=== PATIENT | female | born 1930 | race Caucasian/White ===

== ENCOUNTER 2018-12-21 09:30 | Inpatient (IN) | payer MEDICARE, MEDICAID ==
[~2018-12-21] VITALS: Ht 152.4 cm; Wt 65.0 kg
[2018-12-21 12:20] VITALS: BP 158/81
--- NOTE | 2018-12-21 13:31 | NUR ---
[place], who prefers to go by Inga admitted to room 224-1, with an admitting diagnosis of a sacral fx , on 12/21/18 from via [facility], accompanied by her son, Leonel who is her DPOA. Inga was introduced to surroundings, call light, bed controls, phone, TV, temperature control, lights, meal times, smoking policy, visitor policy, side rail policy, bathrooms and showers. Patient Rights given to patient in the handbook. Inga verbalizes understanding that [facility] is not responsible for the loss or damage to any personal effects or valuables that are kept in the patients posession during their hospitalization. The following Patient Care Plans were discussed with the Injury Prevention,Imparied Mobility and Discharge Planning. Inga verbalizes understanding of Interdisciplinary Patient Education. Patient and/or family were informed about the Rapid Response Team and its purpose. Patient received Patient Rights Booklet, which includes Privacy Act Statement and Data Collection Information Summary.
--- NOTE | 2018-12-21 13:40 | Physical Therapy Evaluation ---
PT Evaluation-General Medical Diagnosis Admission Date Dec 21, 2018 at 12:20 Medical Diagnosis: Sacral fx Onset Date: Dec 21, 2018 Therapy Diagnosis Therapy Diagnosis: weakness; abn gait Precautions Precautions/Isolations: Standard Precautions Weight Bear Status Right Lower Extremity: Right Weight Bearing/Tolerated Left Lower Extremity: Left Weight Bearing/Tolerated Referral Physician: Candi Reason for Referral: Evaluation/Treatment Medical History Additional Medical History R TKA, L THR, stage 3 kidney disease, asthma, osteoporosis, UTI Current History Pt presents post acute hospital stay post fall on 12/13/18. She sustained a sacral fx. Reviewed History: Yes Social History Home: Single Level Current Living Status: Alone (good family support) Entry Into Home: Stairs Without Railing (1 small step ) Prior/Core FIM Prior Level of Function Therapy Code Descriptions/Definitions Functional Gem Measure: 0=Not Assessed/NA 4=Minimal Assistance 1=Total Assistance 5=Supervision or Setup 2=Maximal Assistance 6=Modified Gem 3=Moderate Assistance 7=Complete Gem Therapy Quality Codes: 6 Independent with activity with or without an assistive device 5 Patient requires set up or clean up by helper. Patient completes activity by themselves 4 Supervision or touching assist (CGA). [place] provide cues , steadying assist 3 The helper provides less than half the effort to complete the activity 2 The helper provides more than half the effort to complete the activity 1 Dependent. The helper does all the effort to complete an activity 7 Patient refused to complete or attempt activity 9 The patient did not perform the activity before the current illness or injury 88 Not attempted due to Medical conditions or safety concerns Functional Abilities and Goals: Independent: Patient completed the activities by him/herself, with or without an assistive device, with no assistance from a helper. Needed Some Help: Patient needed partial assistance from another person to complete activities. Dependent: A helper completed the activities for the patient. Unknown: Not Applicable: Bed Mobility: 7 Transfers (B,C,W/C) (FIM): 7 Gait: 6 (FWW) Stairs: 2 (1 step) Indoor Mobility (Ambulation): Independent Stairs: Independent Prior Devices Use: Walker Pt is a community ambulator and still drives. Does her own grocery shopping. Able to care for herself. PT Evaluation-Current Subjective Pt grunts/groans noting left hip/sacral pain. Agrees to PT. but reports sitting up is painful. Pain Numeric Pain Scale: 9 Location: Left Location Body Site: Hip (sacral area) Pain Description: Dull, Pressure, Stabbing Objective Patient Orientation: Person, Place, Time, Situation Problem Solving: Fair ROM/Strength ROM Lower Extremities WNL Strenght Lower Extremities strength is grossly 4/5 throughout. Integumentary/Posture Integumentary Intact Bowel Incontinence: No Bladder Incontinence: Yes (stress) Posture normal and symmetrical Neuromuscular (Tone, Coordination, Reflexes) intact and functional Sensory Vision: Wears Glasses Hearing: Hearing Aid/Aides Hand Dominance: Right Sensation Right Lower Extremit: Intact Sensation Left Lower Extremity: Intact Transfers Therapy Code Descriptions/Definitions Functional Gem Measure: 0=Not Assessed/NA 4=Minimal Assistance 1=Total Assistance 5=Supervision or Setup 2=Maximal Assistance 6=Modified Gem 3=Moderate Assistance 7=Complete Gem Therapy Quality Codes: 6 Independent with activity with or without an assistive device 5 Patient requires set up or clean up by helper. Patient completes activity by themselves 4 Supervision or touching assist (CGA). [place] provide cues , steadying assist 3 The helper provides less than half the effort to complete the activity 2 The helper provides more than half the effort to complete the activity 1 Dependent. The helper does all the effort to complete an activity 7 Patient refused to complete or attempt activity 9 The patient did not perform the activity before the current illness or injury 88 Not attempted due to Medical conditions or safety concerns Transfers (B, C, W/C) (FIM): 3 Scootin Rollin Roll Left to Right (QC): 3 Supine to/from Sit: 3 (assist with both legs) Sit to/from Stand: 4 (min assist to come to [facility]. ) Sit to Lying (QC): 3 Lying to Sitting/Side of Bed(Q: 3 Sit to Stand (QC): 4 Chair/Jwd-ew-Nbdso Xfer(QC): 4 Car Transfer (QC): 3 Pt slow with transfers due to pain and requires cues to sequence. Gait Does the Patient Walk?: Yes Mode of Locomotion: Walk Anticipated Mode of Locomotion: Walk Gait (FIM): 2 Distance (FIM): 1=up to 49 ft Walk 10 feet (QC): 4 Walk 50 ft with 2 Turns(QC): 88 Walk 150 ft (QC): 88 Walking 10ft/uneven surface-QC: 88 Distance: 10 ft Gait Level of Assist: 4 (min assist) Gait Assistive Device: FWW Comments/Gait Description slow gait and slightly antalgic Wheelchair Training Does the Pt Use a Wheelchair?: No Stairs Stairs (FIM): 0 (unable to assess due to pain) 1 Step (curb) (QC): 88 4 Steps (QC): 88 12 Steps (QC): 88 Balance Sitting Static: Good Sitting Dynamic: Good Standing Static: Fair Standing Dynamic: Fair Picking up an Object (QC): 88 Treatment Pt walked x 15 ft x 2 with FWW with close CGA and skilled cues for sequencing. Toileted with min assit for toilet transfer. Worked on functional bed mobility and task segmentation with bed mobility. Assessment/Needs Pt presents post fall that resulted in a sacral fracture. She is limited by pain with movement and painful with pressure through her hip/thigh in sitting. She requires assist with all functional tranfers and gait and only walks short distances. She will benefit from skilled PT intervention to address mobility, strength, safety, balance to allow her to return home as before. Rehab Potential: Good PT Short Term Goals Short Term Goals Time Frame: Dec 28, 2018 Transfers (B,C,W/C) (FIM): 4 Gait (FIM): 4 PT Shelter Goals Shelter Goals PT Shelter Goals Time Frame: January 09, 2019 Transfers (B,C,W/C) (FIM): 6 Sit to Lying (QC): 6 Lying-Sitting on Side/Bed(QC): 6 Sit to Stand (QC): 6 Roll Left to Right (QC): 6 Chair/Rvw-ek-Djczr Xfer(QC): 6 Car Transfer (QC): 6 Does the Patient Walk: Yes Gait (FIM): 6 Gait distance (FIM): 3=150 ft Walk 10 feet (QC): 6 Walk 10ft-Uneven Surface(QC): 6 Walk 50ft with 2 Turns (QC): 6 Walk 150 ft (QC): 6 Gait Assistive Device: FWW Does the Pt use WC or Scooter?: No Stairs (FIM): 5 # of Steps: 4 1 Step (curb) (QC): 6 4 Steps (QC): 6 12 Steps (QC): 10 Picking up an Object (QC): 10 PT Plan Problem List Problem List: Activity Tolerance, Functional Strength, Safety, Balance, Gait, Transfer, Bed Mobility Treatment/Plan Treatment Plan: Continue Plan of Care Treatment Plan: Bed Mobility, Education, Functional Activity Melissa, Functional Strength, Group Therapy, Gait, Safety, Therapeutic Exercise, Transfers Treatment Duration: January 09, 2019 Frequency: At least 5 of 7 days/Wk (IRF) Estimated Hrs Per Day: 1.5 hours per day Patient and/or Family Agrees t: Yes Safety Risks/Education Patient Education: Gait Training, Transfer Techniques, Safety Issues Teaching Recipient: Patient Teaching Methods: Discussion Response to Teaching: Reinforcement Needed Discharge Recommendations Therapy D/C Recommendations: Physical Therapy Home Care Time/GCodes Time In: 1220 Time Out: 1330 Total Billed Treatment Time: 70 Total Billed Treatment visit EVM 30 FA 40 CECILIA CROWE PT Dec 21, 2018 13:40
[2018-12-21] MEDS ORDERED: ATEN100T PO ×2 (13:46)
[2018-12-21] MEDS ORDERED: ASPI-983 PO (13:46)
[2018-12-21] MEDS ORDERED: AMLO10TA7 PO (13:46)
[2018-12-21] MEDS ORDERED: FENO160T12 PO (13:46)
[2018-12-21] MEDS ORDERED: LISI-552 PO (13:46)
[2018-12-21] MEDS ORDERED: DOCU-143 PO (13:46)
[2018-12-21] MEDS ORDERED: TRAM50TA2 PO (13:46)
[2018-12-21] MEDS ORDERED: PREG75CA PO (13:46)
[2018-12-21] MEDS ORDERED: SPIR25TA5 PO (13:46)
[2018-12-21] MEDS ORDERED: PEDI18TA2 PO (13:46)
[2018-12-21] MEDS ORDERED: MONT10TA21 PO (13:46)
[2018-12-21] MEDS ORDERED: CALC-880 PO (13:46)
[2018-12-21] MEDS ORDERED: CHOL20002 PO (13:46)
[2018-12-21] MEDS ORDERED: KRIL1CAP29 PO (13:46)
--- NOTE | 2018-12-21 13:47 | NUR ---
UPDATED MED REC TO THE PATIENTS HOME MEDICATION LIST. FAMILY BROUGHT IN A DETAILED LIST THEY COPIED DOWN FROM HER BOTTLES. THE PATIENT LOOKED OVER IT AND AGREED IT WAS ACCURATE. THE ONLY ADDITION IS KRILL OIL DAILY. THE PATIENT STATES SHE HER MEDICATIONS FROM THE [facility]. IF SHE CAN'T GET THEM FILLED THERE SHE USES [facility] IN [place]. I HAD A LIST SENT OVER FROM THE [facility] FOR VERIFICATION. 12-10-18 VITAMIN D 2,000 UNITS DAILY #60 12-10-18 COLACE 100MG BID #60 12-10-18 SINGULAIR 10MG EVENING #60 12-10-18 SPIRONOLACTONE 25MG DAILY #60 11-29-18 LYRICA 75MG BID #60 11-22-18 LISINOPRIL 20MG BID #120 11-22-18 TRAMADOL 50MG TID PRN #90 10-30-18 AMLODIPINE 10MG DAILY #60 10-30-18 ATENOLOL 100MG 1 AM 1/2 HS #90 10-30-18 CALCIUM 500 + D 400IU BID #120 10-30-18 FENOFIBRATE 160MG DAILY #60 06-21-18 VOLTAREN GEL 2GM QID (WAS NOT ON HER LIST SHE BROUGHT IN) 03-26-18 ASPIRIN 81MG DAILY #60 (TAKES BID NOW AND MAY BUY OTC) SHE ALSO TAKES KRILL OIL AND FLINTSTONES VITAMINS OTC DAILY. THERE WAS NOT A FORMAL DISCHARGE MED LIST FROM [facility] BUT THE [facility] NURSE STATES THEY DID NOT MAKE ANY CHANGES TO THE PATIENTS MEDS.
--- NOTE | 2018-12-21 14:11 | PM&R H&P / Post Admit Assess ---
History of Present Illness HPI/Chief Complaint CC: Sacral fracture in need of IRF prior to going home to live alone HPI: This is an 88yoWF clinic patient of [facility] in [place], [place] who also sees Nephrology at [place] and Cardiology at [place] who presents to IRF due to sacral fracture in need of intensive rehab prior to returning home to live alone independently. Her PLOF was independent and family is involved in her care. She fell on 12/12/18 at home and did not feel like she hurt herself until she began having left leg and left pelvis pain 3 days later and reported to the ER which dx the sacral fracture and was given pain meds and sent home. Patient presented to Dr Kent's office yesterday and was assessed to not require surgery but due to pain and unable to go back home due to debility she was admitted for observation to [facility] and consulted IRF at [facility]. Currently she just took a shower and is feeling much better. Patient has not had a BM for 2 days. Patient does have bladder stress incontinence. I have reviewed her home meds and restarted all of them. 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 She had 2 sons, 1 is 6 yrs ago from a non-purposeful narcotic OD. She will return home at the completion of IRF. Source: patient, old records Exam Limitations: no limitations Date Seen 12/21/18 Time Seen by a Provider: 14:00 Attending Physician Celine Christopher DO PCP No,Local Physician Referring Physician Date of Admission Dec 21, 2018 at 12:20 Home Medications & Allergies Home Medications Reviewed patient Home Medication Reconciliation performed by pharmacy medication reconciliations implementation technician and/or nursing. Patients Allergies have been reviewed. 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) Alcohol Use: Denies Use Smoking Status: Never a Smoker Recent Foreign Travel: No Contact w/other who traveled: No Past Medical History Cardiac: High Cholesterol, Hypertension RLS Genitourinary: Renal Failure (RLS) Gastrointestinal: Chronic Constipation Musculoskeletal: Degenerate Disk Disease, Arthritis Family History Hypertension Review of Systems Constitutional: see HPI EENTM: no symptoms reported Respiratory: no symptoms reported Cardiovascular: no symptoms reported Gastrointestinal: constipation Genitourinary: no symptoms reported Musculoskeletal: back pain, other (left pelvis sacrum pain) Skin: no symptoms reported Psychiatric/Neurological: No Symptoms Reported All Other Systems Reviewed Negative Unless Noted: Yes Physical Exam Exam Vital Signs Vital Signs Date Time Temp Pulse Resp B/P (MAP) Pulse Ox O2 Delivery O2 Flow Rate FiO2 12/21/18 15:57 Room Air Capillary Refill : General Appearance: No Apparent Distress, WD/WN, Chronically ill, Obese HEENT: PERRL/EOMI, Normal ENT Inspection, Pharynx Normal, Moist Mucous Membranes Neck: Full Range of Motion, Normal Inspection, Non Tender, Supple Respiratory: Chest Non Tender, Lungs Clear, Normal Breath Sounds, No Accessory Muscle Use, No Respiratory Distress Cardiovascular: Regular Rate, Rhythm, No Edema, No Gallop, No JVD, No Murmur Gastrointestinal: Normal Bowel Sounds, No Organomegaly, No Pulsatile Mass, Non Tender, Soft Back: Normal Inspection, No CVA Tenderness, Decreased Range of Motion Extremity: Normal Capillary Refill, Normal Inspection, Normal Range of Motion, Non Tender, No Calf Tenderness, No Pedal Edema Neurologic/Psychiatric: Alert, Oriented x3, No Motor/Sensory Deficits, Normal Mood/Affect, Motor Weakness (weakness 4/5 all extremities) Skin: Normal Color, Warm/Dry Lymphatic: No Adenopathy Results Results/Procedures Labs Patient resulted labs reviewed. Assessment/Plan Assessment and Plan Assess & Plan/Chief Complaint Assessment/Plan: (1) Sacral fracture, closed- no surgical repair option (2) Debility- needs IRF to return to [facility] of independent (3) Hypertension- home meds and monitor closely (4) Hyperlipidemia- home meds (5) Renal insufficiency- monitor creatinine closely and check labs am (6) Anemia- monitor hgb (7) RLS (restless legs syndrome)- home meds (8) Fall-PT/OT to educate on safety and fall risk (9) Allergic rhinitis- on Singulair (10) Constipation- start meds (11) Sacral pain- add Ultram and Hydrocodone monitor for delirium (1) Sacral fracture, closed (2) Debility (3) Hypertension (4) Hyperlipidemia (5) Renal insufficiency (6) Anemia (7) RLS (restless legs syndrome) (8) Fall (9) Allergic rhinitis (10) Constipation (11) Sacral pain Post Admission Physician Asses Date seen by provider: Dec 21, 2018 Time seen by provider: 14:00 Admisison Dx: (1) Sacral fracture, closed (2) Anemia (3) Hyperlipidemia (4) Renal insufficiency (5) Allergic rhinitis (6) Debility (7) Hypertension (8) Fall (9) RLS (restless legs syndrome) (10) Constipation (11) Sacral pain The preadmission screen agrees with the post admission assessment that the patient is a good candidate for inpatient rehabilitation. The patient will have a comprehensive program of inpatient rehabilitation with a goal of maximizing level of functional independence prior to discharge home alone. The patient will have PT/OT ninety minutes per day, each discipline, five days a week for gait, strengthening, conditioning, balance, ADLs, any patient/family/caregiver training as necessary. Speech therapy to do cognitive assessment and treat as indicated. Rehabilitation nursing to assist with bowel, bladder, skin, wound care, medication administration, pain management. [employer] Head to assist with discharge planning, community reentry. SCD's for DVT prophylaxis. She appears to be well motivated to participate in three hours of therapy a day. She should be able to tolerate three hours of therapy a day from a medical standpoint. She should benefit from the three hours of therapy a day. She has a reasonable discharge plan, reasonable discharge rehabilitation goals and a supportive family. She has various comorbidities that need to be closely monitored with medications and treatments adjusted on a daily basis as needed. These include: see above list Barriers to discharge for this patient who had been independent prior to this are for her to be modified independent to supervision for ADLs and mobility skills prior to discharge home with [family], so as to lessen the burden of the caregivers. Risks for this patient include: 1. Fall 2. Fracture 3. DVT 4. Pulmonary embolism 5. Wound infection 6. Skin breakdown 7. Contractures 8. Poorly controlled pain 9. Urinary retention 10. UTI 11. Respiratory infection 12. Aspiration Estimated Length of Stay: 10 days Prognosis: Rehab prognosis appears good for goal of discharge home modified independent to supervision for ADLs and mobility skills. CELINE CHRISTOPHER DO Dec 21, 2018 14:11
--- NOTE | 2018-12-21 15:21 | Physical Therapy Daily Note ---
PT Daily Note-Current Subjective Pt sitting in recliner visiting with Dr Christopher upon arrival. Pt agrees to PT/ OT co-treat. Pain Numeric Pain Scale: 8 Location: Left Location Body Site: Hip Pain Description: Ache Mental Status Patient Orientation: Person, Place, Situation Transfers Therapy Code Descriptions/Definitions Functional [place] Measure: 0=Not Assessed/NA 4=Minimal Assistance 1=Total Assistance 5=Supervision or Setup 2=Maximal Assistance 6=Modified [place] 3=Moderate Assistance 7=Complete [place] Therapy Quality Codes: 6 Independent with activity with or without an assistive device 5 Patient requires set up or clean up by helper. Patient completes activity by themselves 4 Supervision or touching assist (CGA). [place] provide cues , steadying assist 3 The helper provides less than half the effort to complete the activity 2 The helper provides more than half the effort to complete the activity 1 Dependent. The helper does all the effort to complete an activity 7 Patient refused to complete or attempt activity 9 The patient did not perform the activity before the current illness or injury 88 Not attempted due to Medical conditions or safety concerns Scootin Supine to/from Sit: 3 Sit to/from Stand: 4 Sit to Lying (QC): 3 Sit to Stand (QC): 4 Weight Bearing Right Lower Extremity: Right Weight Bearing/Tolerated Left Lower Extremity: Left Weight Bearing/Tolerated Gait Training Distance (FIM): 1=up to 49 ft Distance: 15' Gait Assistive Device: FWW Pt groans in pain while ambulating. Pt has slow catherine but steady. Exercises Supine Ex: Ankle pumps, Quad Set, Glut sets Supine Reps: 10 Treatments STRETCHING PRESS OPERATOR tries to assist pt with repositioning in lift chair. Pt brushes hair in chair to finish ADLs. Due to pt being uncomfortable, PT & OT assisted with transfer from chair to standing. Pt ambulates to farside of EOB. Pt transfers to Supine in bed with staff assistance. Pt completes alternating UE/LE Ex. Pt rests at end of tx with all needs met. Co-treat completed due to need of two skilled clinicians. Assessment Pt is limited by pain at this time. PT Short Term Goals Short Term Goals Time Frame: Dec 28, 2018 Transfers (B,C,W/C) (FIM): 4 Gait (FIM): 4 PT Fiction And Nonfiction Author Goals Fiction And Nonfiction Author Goals PT Fiction And Nonfiction Author Goals Time Frame: January 09, 2019 Transfers (B,C,W/C) (FIM): 6 Sit to Lying (QC): 6 Lying-Sitting on Side/Bed(QC): 6 Sit to Stand (QC): 6 Rollin Roll Left to Right (QC): 6 Chair/Yan-bv-Vtxfy Xfer(QC): 6 Car Transfer (QC): 6 Does the Patient Walk: Yes Gait (FIM): 6 Gait distance (FIM): 3=150 ft Walk 10 feet (QC): 6 Walk 10ft-Uneven Surface(QC): 6 Walk 50ft with 2 Turns (QC): 6 Walk 150 ft (QC): 6 Gait Assistive Device: FWW Does the Pt use WC or Scooter?: No Stairs (FIM): 5 # of Steps: 4 1 Step (curb) (QC): 6 4 Steps (QC): 6 12 Steps (QC): 10 Picking up an Object (QC): 10 PT Plan Problem List Problem List: Activity Tolerance, Functional Strength, Safety, Balance, Gait, Transfer, Bed Mobility Treatment/Plan Treatment Plan: Continue Plan of Care Treatment Plan: Bed Mobility, Education, Functional Activity Melissa, Functional Strength, Group Therapy, Gait, Safety, Therapeutic Exercise, Transfers Treatment Duration: January 09, 2019 Frequency: At least 5 of 7 days/Wk (IRF) Estimated Hrs Per Day: 1.5 hours per day Patient and/or Family Agrees t: Yes Safety Risks/Education Patient Education: Gait Training, Transfer Techniques, Correct Positioning, Safety Issues Teaching Recipient: Patient Teaching Methods: Discussion Response to Teaching: Verbalize Understanding Time/GCodes Time In: 1440 Time Out: 1500 Total Billed Treatment Time: 20 Total Billed Treatment 1, EX (20m) PT worked on transfers, gait & LE strengthening while OT worked on ADLs, hand placement & UE strengthening GABRIEL PANIAGUA STRETCHING PRESS OPERATOR Dec 21, 2018 15:21
--- NOTE | 2018-12-21 15:54 | ST Cognitive Linguistic Eval ---
Speech Evaluation-General Medical Diagnosis Sacral fx Onset Date: Dec 21, 2018 Therapy Diagnosis Therapy Diagnosis: Cognitive-communication Precautions Precautions/Isolations: Fall Prevention, Standard Precautions Referral Referring Physician: Dr. Christopher Reason for Referral: Evaluation/Treatment Medical History Reviewed History: Yes Social History Current Living Status: Alone (good family support) Speech PLF-Current Status Prior Level of Function Prior to this hospitalization the patient lived at home in [place], [place] alone. She has family close by for assistance when needed. Subjective The patient was pleasant and cooperative with the evaluation process. Language Eval: Auditory Comprehends Simple Yes/No Ques: Functional Indent/Objects [place]: Functional Ident/Pics in [place]: Functional Follows 1-Step Commands: Functional Follows Complex Directions: Functional Follows General Conversations: Functional Language Eval: Verbal Language Completes Spontaneous Greeting: Functional Produces Auto, Serial Info: Functional Imitates Simple Words/Phrases: Functional Word Finding: Functional Requests Basic Needs: Functional States Basic Personal Info: Functional Expresses Complex Ideas: Functional Objective Cognitive Domain Attention: WNL Memory: WNL Problem Solving: Functional Executive Functions: WNL Visuospatial Skills: WNL Composite Severity Rating: WNL Clock Drawing Severity Rating: WNL Objective Formal/Standardized Tests Jono Cognitive Assessment (MOCA) Results Visuospatial/Executive: 4/5, Namin/3, Memory: Immediate 5/5, Delayed with cues 4/5, Attention: 6/6, Language 3/3, Abstraction:2/2, Orientation: 6/6 Oral Motor/Speech Production Within Functional Limits Impression The patient is a pleasant 88 year old female who was admitted to the ARU due to a sacral fracture. She plans on returning home post rehab. She was given the MOCA with results no areas of concern at this time. Communication/Social Cognition Comprehension: 7 Expression: 7 Social Interaction: 7 Problem Solvin Memory: 6 Speech Patient Assess Expression of Ideas/Wants: Expression (4) Understanding Verbal Content: Understands (4) Brief Interview-Mental Status: Yes Repetition of Three Words: Three (3) Temporal Orientation: Year: Correct (3) Temporal Orientation: Month: Accurate within 5 days(2) Temporal Orientation: Day: Correct (1) Recall : Wear to say "Sock": Yes,after cueing (1) Recall : Color: Yes, no cue required (2) Recall : Bed: Yes,after cueing (1) Memory/Recall Ability: Current season, That he or she is in a hsp/hsp unit Speech-Plan Patient/Family Goals Patient/Family Goals: The patient plans to return home post rehab where she lives alone. She has family who assist her as needed with her daily needs. Treatment Plan Speech Therapy Treatment Plan: Discontinue ST The patient does not warrant skilled ST services at this time. Treatment Duration: Dec 21, 2018 Frequency: 1 time per week Estimated Hrs Per Day: .25 hour per day Rehab Potential: Good Barriers to Learning: None identified Pt/Family Agrees to Plan: Yes Safety Risks/Education Teaching Recipient: Patient Teaching Methods: Discussion Response to Teaching: Verbalize Understanding Time Speech Therapy Time In: 15:30 Speech Therapy Time Out: 15:50 Total Billed Time: 15 Billed Treatment Time 1, IVA Cain Dec 21, 2018 15:54
[2018-12-21 16:00] VITALS: BP 138/74
--- NOTE | 2018-12-21 16:08 | Occupational Therapy Eval ---
OT Evaluation-General/PLF Medical Diagnosis Admission Date Dec 21, 2018 at 12:20 Medical Diagnosis: Sacral fx Onset Date: Dec 21, 2018 Therapy Diagnosis Therapy Diagnosis: impaired self care skills Height/Weight Height (Feet): 5 Height (Inches): 0.00 Weight (Pounds): 144 Weight (Ounces): 0.0 Precautions Precautions/Isolations: Fall Prevention, Standard Precautions Referral Physician: Candi Medical History Additional Medical History R TKA, L THR, stage 3 kidney disease, asthma, osteoporosis, UTI Current History Pt admitted secondary to fall with sacral fracture Social History Home: Single Level Current Living Status: Alone (good family support) Entry Into Home: Stairs Without Railing (1 small step ) ADL-Prior Level of Function Therapy Code Descriptions/Definitions Functional [place] Measure: 0=Not Assessed/NA 4=Minimal Assistance 1=Total Assistance 5=Supervision or Setup 2=Maximal Assistance 6=Modified [place] 3=Moderate Assistance 7=Complete [place] Therapy Quality Codes: 6 Independent with activity with or without an assistive device 5 Patient requires set up or clean up by helper. Patient completes activity by themselves 4 Supervision or touching assist (CGA). [place] provide cues , steadying assist 3 The helper provides less than half the effort to complete the activity 2 The helper provides more than half the effort to complete the activity 1 Dependent. The helper does all the effort to complete an activity 7 Patient refused to complete or attempt activity 9 The patient did not perform the activity before the current illness or injury 88 Not attempted due to Medical conditions or safety concerns Functional Abilities and Goals: Independent: Patient completed the activities by him/herself, with or without an assistive device, with no assistance from a helper. Needed Some Help: Patient needed partial assistance from another person to complete activities. Dependent: A helper completed the activities for the patient. Unknown: Not Applicable: ADL PLOF Comments Pt reports being independent with self care and mobility. Uses 4WW. Pt states she has assist with heavy cleaning, but is able to complete other ADLs. Pt drives and does her own shopping. Has meals delivered, but states she still prepares some of her meals. Self Care: Independent DME/Equipment: Bath Chair, Grab Bars, Shower, Shower Hose Desktop Support Engineer, Tall Toilet Drive Self: Yes OT Current Status Subjective Pt sitting in chair, agrees to therapy. Pt reports minima pain at rest, but 9/ 10 pain with movement. Mental Status/Objective Patient Orientation: Person, Place, Situation Current Glasses/Contacts: Yes Hearing Aids: Yes Dentures/Partials: Yes Hand Dominance: Right Upper Extremity ROM Grossly WFL Upper Extremity Coordination Intact Upper Extremity Strength grossly 4/5 ADL-Treatment ADL-Current Pt initially states she would like a sponge bath, but family reports hairdresser will be coming up tonight, so pt states she would like to shower and wash her hair. Sit to stand from chair with minimal assistance. Gait to restroom with FWW, slow pace. Transfer to walk in shower with minimal assistance using FWW. Seated bathing completed while seated. Pt able to wash upper body, but requires assist for lower body secondary to pain. Pt unable to find comfortable position in shower and attempts to keep weight off left hip. Fatigues quickly. Transfer to reclining w/c with minimal assistance. Pt requires rest break with w/c partially reclined to decreased pain. Mod assist to don shirt secondary to pain and positioning. Max assist to don pants. Total assist to don socks secondary to pain. Pt moves slowly during functional tasks. Pt combed hair with SBA. Transfer back to recliner with minimal assistance using FWW. Grooming (FIM): 5 Bathing (FIM): 3 Shower/Bathe Self (QC): 3 Upper Body Dressing (FIM): 3 Upper Body Dressing (QC): 3 Lower Body Dressing (FIM): 2 Lower Body Dressing (QC): 2 On/Off Footwear (QC): 1 Toileting (FIM): 2 (Per PT report) Toilet/Commode Transfer (FIM): 4 (Per PT report) Toilet Transfer (QC): 3 Shower Transfer (FIM): 4 Other Treatments PT present for Co-treat. Pt limited by pain and decreased activity tolerance. Pt unable to get into comfortable position in chair. Sit to stand with minimal assistance. Pt ambulated from chair to far side of bed with FWW, slow pace. Sit to supine with mod assist. Pt requires rest break secondary to pain. Pt performed alternating UE/LE exercises. Pt completed 10 reps of shoulder and elbow ROM exercises with rest breaks in between. Pt positioned in bed with needs met after session. OT focusing on UE management during transfers, safety, and UE exercised. PT focusing on mobility, LE management, and LE exercises. Education OT Patient Education: Rehab process Teaching Recipient: Patient Teaching Methods: Discussion Response to Teaching: Verbalize Understanding, Reinforcement Needed OT Short Term Goals Short Term Goals Time Frame: Dec 28, 2018 Bathing(FIM): 4 Upper Body Dressing(FIM): 5 Lower Body Dressing(FIM): 4 Toileting(FIM): 4 Toilet/Commode Transfer(FIM): 5 Comprehension(FIM): 4 (CGA) Additional Short Term Goals: 1-Demonstrate ADL Tasks, 2-Verbalize Understanding , 3-ImproveStrength/Melissa 1=Demonstrate adherence to instructed precautions during ADL tasks. 2=Patient will verbalize/demonstrate understanding of assistive devices/ modifications for ADL. 3=Patient will improve strength/tolerance for activity to enable patient to perform ADL's. OT Residential Goals Digital Media Associate Goals Time Frame: January 11, 2019 Eating (FIM): 6 Eating (QC): 6 Groomin Oral Hygiene (QC): 6 Bathing(FIM): 5 Shower/Bathe Self (QC): 5 Upper Body Dressing(FIM): 6 Upper Body Dressing (QC): 6 Lower Body Dressing(FIM): 6 Lower Body Dressing (QC): 6 On/Off Footwear (QC): 6 Toileting(FIM): 6 Toileting Hygiene (QC): 6 Toilet/Commode Transfer(FIM): 6 Toilet/Commode Transfer (QC): 6 Shower Transfer(FIM): 5 Additional Goals: 1-Demonstrate ADL Tasks, 2-Verbalize Understanding, 3- ImproveStrength/Melissa 1=Demonstrate adherence to instructed precautions during ADL tasks. 2=Patient will verbalize/demonstrate understanding of assistive devices/ modifications for ADL. 3=Patient will improve strength/tolerance for activity to enable patient to perform ADL's. OT Education/Plan Problem List/Assessment Assessment: Decreased Activ Tolerance, Decreased UE Strength, Dependent Transfers, Impaired I ADL's, Impaired Self-Care Skills Pt to benefit from skilled OT intervention for ADL training, transfers, strengthening, and safety education to increase level of independence and allow safe return home. Discharge Recommendations Plan/Recommendations: Continue POC Treatment Plan/Plan of Care Treatment,Training & Education: Yes Patient would benefit from OT for education, treatment and training to promote independence in ADL's, mobility, safety and/or upper extremity function for ADL' s. Treatment Duration: January 11, 2019 Frequency: At least 5 of 7 days/Wk (IRF) Estimated Hrs Per Day: 1.5 hours per day Rehab Potential: Good Time/GCodes Start Time: 13:30 Stop Time: 15:00 Total Time Billed (hr/min): 90 Billed Treatment Time 1 visit, EVM(15minutes), ADLx4(55minutes), EX(20minutes) (Co-treat with PT 20 minutes) ALPHONSE DUNHAM OT Dec 21, 2018 16:07
[2018-12-21] MEDS ORDERED: CALCIUM CARBONATE 500 MG (TUMS) TAB.CHEW PO PRN (16:30)
[2018-12-21] MEDS ORDERED: MELATONIN 3 MG TABLET PO PRN (16:30)
[2018-12-21] MEDS ORDERED: POLYETHYLENE GLYCOL 17 GM (MIRALAX) PACK PO PRN (16:30)
[2018-12-21] MEDS ORDERED: LACTULOSE SYRUP 10GM/15ML (ENULOSE) 30ML UDC PO PRN (16:30)
[2018-12-21] MEDS ORDERED: diphenhydrAMINE 25 MG TAB (BENADRYL) PO PRN (16:30)
[2018-12-21] MEDS ORDERED: ONDANSETRON 4 MG (ZOFRAN) ORAL DISSOLVE TAB PO PRN (16:30)
[2018-12-21 18:34] VITALS: BP 138/74
[2018-12-21] MEDS: CALCIUM CARB + VIT D 600 MG (CALCARB + D) TAB PO SCH (18:38)
[2018-12-21] MEDS: ACETAMINOPHEN 500 MG TAB (TYLENOL) PO PRN (18:38)
[2018-12-21] MEDS ORDERED: VITAMIN D3 PO SCH (21:00)
[2018-12-21] MEDS ORDERED: NON-FORMULARY MEDICATION 1 EA EA (Montelukast Sodium (Singulair) 10 MG) PO SCH (21:00)
[2018-12-21] MEDS ORDERED: [UNRECOGNIZED DRUG - OTHER] PO SCH (21:00)
[2018-12-21] MEDS ORDERED: NON-FORMULARY MEDICATION 1 EA EA (Atenolol 50 MG) PO SCH (21:00)
[2018-12-21] MEDS ORDERED: CALCIUM CARBONATE PO SCH (21:00)
[2018-12-21] MEDS ORDERED: NON-FORMULARY MEDICATION 1 EA EA (Pedi Mv No.79/Ferrous Fumarate (Flintstones with Iron Ta PO SCH (21:00)
[2018-12-21] MEDS: HYDROcodone/APAP 5 MG/325 MG (LORTAB) TAB PO PRN (21:10)
[2018-12-21] MEDS: PREGABALIN 75 MG (LYRICA) CAP PO SCH (21:11)
[2018-12-21] MEDS: ASPIRIN E.C. 81 MG (ECOTRIN) TAB PO SCH (21:11)
[2018-12-21] MEDS: MONTELUKAST 10 MG (SINGULAIR) TAB PO SCH (21:11)
[2018-12-21] MEDS: ATENOLOL 50 MG (TENORMIN) TAB PO SCH (21:11)
[2018-12-21] MEDS: lisINopril 20 MG (PRINIVIL) TABLET PO SCH (21:12)
[2018-12-21] MEDS: DOCUSATE SODIUM 100 MG (COLACE) CAP PO SCH (21:12)
[2018-12-22] MEDS: HYDROcodone/APAP 5 MG/325 MG (LORTAB) TAB PO PRN ×4 (02:18→17:13)
[2018-12-22 05:03] VITALS: BP 144/75
[2018-12-22 05:40] LABS: BASOPHILS % (AUTO) 0 % (0-10); EOSINOPHILS % (AUTO) 0 % (0-10); HEMATOCRIT 34 % (35-52); HEMOGLOBIN 11.4 G/DL (11.5-16.0); LYMPHOCYTES # (AUTO) 0.9 X 10^3 (1.0-4.0); LYMPHOCYTES % (AUTO) 15 % (12-44); MEAN CORPUSCULAR HEMOGLOBIN 31 PG (25-34); MEAN CORPUSCULAR HGB CONC 34 G/DL (32-36); MEAN CORPUSCULAR VOLUME 91 FL (80-99); MEAN PLATELET VOLUME 9.6 FL (7.4-10.4); MONOCYTES # (AUTO) 0.8 X 10^3 (0.0-1.0); MONOCYTES % (AUTO) 14 % (0-12); NEUTROPHILS # (AUTO) 4.1 X 10^3 (1.8-7.8); NEUTROPHILS % (AUTO) 71 % (42-75); PLATELET COUNT 184 10^3/uL (130-400); RED CELL DISTRIBUTION WIDTH 15.2 % (10.0-14.5); WHITE BLOOD COUNT 5.8 10^3/uL (4.3-11.0)
[2018-12-22 06:01] LABS: ALANINE AMINOTRANSFERASE 29 U/L (0-55); ALBUMIN 3.2 GM/DL (3.2-4.5); ALKALINE PHOSPHATASE 81 U/L (40-136); BUN/CREATININE RATIO 42; CALCIUM 9.3 MG/DL (8.5-10.1); CARBON DIOXIDE 22 MMOL/L (21-32); CHLORIDE 109 MMOL/L (98-107); CREATININE SERUM 0.85 MG/DL (0.60-1.30); GFR ESTIMATED > 60; GLUCOSE 104 MG/DL (70-105); POTASSIUM 4.2 MMOL/L (3.6-5.0); SODIUM 139 MMOL/L (135-145); TOTAL PROTEIN 5.5 GM/DL (6.4-8.2)
[2018-12-22] MEDS: CALCIUM CARB + VIT D 600 MG (CALCARB + D) TAB PO SCH ×2 (07:22→17:12)
[2018-12-22] MEDS: [UNRECOGNIZED DRUG - OTHER] PO SCH ×2 (07:23→17:12)
[2018-12-22 08:02] VITALS: BP 174/71
[2018-12-22] MEDS: SPIRONOLACTONE 25 MG (ALDACTONE) TAB PO SCH (08:03)
[2018-12-22] MEDS: amLODIPine 10 MG (NORVASC) TAB PO SCH (08:03)
[2018-12-22] MEDS: ATENOLOL 50 MG (TENORMIN) TAB PO SCH ×2 (08:03→21:13)
[2018-12-22] MEDS: lisINopril 20 MG (PRINIVIL) TABLET PO SCH ×2 (08:03→21:13)
[2018-12-22] MEDS: DOCUSATE SODIUM 100 MG (COLACE) CAP PO SCH ×2 (08:03→21:14)
[2018-12-22] MEDS: VITAMIN D3 1,000 UNITS (CHOLECALCIFEROL) TABLET PO SCH (08:03)
[2018-12-22] MEDS: ASPIRIN E.C. 81 MG (ECOTRIN) TAB PO SCH ×2 (08:03→21:13)
[2018-12-22] MEDS: PREGABALIN 75 MG (LYRICA) CAP PO SCH ×2 (08:03→21:13)
[2018-12-22] MEDS: FENOFIBRATE 160 MG TABLET PO SCH (08:04)
[2018-12-22] MEDS: KRILL OIL 350 MG PO SCH (08:04)
[2018-12-22] MEDS ORDERED: [UNRECOGNIZED DRUG - OTHER] PO SCH (09:00)
[2018-12-22] MEDS ORDERED: NON-FORMULARY MEDICATION 1 EA EA (Cholecalciferol (Vitamin D3) (Vitamin D-3) 2,000 UNIT) PO SCH (09:00)
[2018-12-22] MEDS ORDERED: NON-FORMULARY MEDICATION 1 EA EA (Fenofibrate 160 MG) PO SCH (09:00)
[2018-12-22] MEDS ORDERED: FENOFIBRATE 134 MG (LOFIBRA) CAPSULE PO SCH (09:00)
[2018-12-22] MEDS ORDERED: NON-FORMULARY MEDICATION 1 EA EA (Amlodipine Besylate 10 MG) PO SCH (09:00)
[2018-12-22] MEDS ORDERED: NON-FORMULARY MEDICATION 1 EA EA (Atenolol 100 MG) PO SCH (09:00)
[2018-12-22 10:33] VITALS: BP 125/63
--- NOTE | 2018-12-22 12:04 | Physical Therapy Daily Note ---
PT Daily Note-Current Subjective Pt laying in recliner upon arrival. Pt is normally uncomfortable but currently is not so pt remains in recliner and agrees to Supine Ex in chair. Pain Numeric Pain Scale: 8 Location Body Site: Sacrum Pain Description: Pressure, Sharp Mental Status Patient Orientation: Person, Place, Time, Situation Transfers Therapy Code Descriptions/Definitions Functional [place] Measure: 0=Not Assessed/NA 4=Minimal Assistance 1=Total Assistance 5=Supervision or Setup 2=Maximal Assistance 6=Modified [place] 3=Moderate Assistance 7=Complete [place] Therapy Quality Codes: 6 Independent with activity with or without an assistive device 5 Patient requires set up or clean up by helper. Patient completes activity by themselves 4 Supervision or touching assist (CGA). [place] provide cues , steadying assist 3 The helper provides less than half the effort to complete the activity 2 The helper provides more than half the effort to complete the activity 1 Dependent. The helper does all the effort to complete an activity 7 Patient refused to complete or attempt activity 9 The patient did not perform the activity before the current illness or injury 88 Not attempted due to Medical conditions or safety concerns Scootin Supine to/from Sit: 3 Sit to/from Stand: 4 Sit to Lying (QC): 3 Sit to Stand (QC): 4 Weight Bearing Right Lower Extremity: Right Weight Bearing/Tolerated Left Lower Extremity: Left Weight Bearing/Tolerated Gait Training Distance (FIM): 1=up to 49 ft Distance: 5' Gait Level of Assist: 4 Gait Persons Needed: 1 Gait Assistive Device: FWW Pt walks with antalgic gait pattern and moans as she walks. Exercises Supine Ex: Ankle pumps, Quad Set, Glut sets, Straight leg raise Supine Reps: 15 Treatments Pt completes Supine Ex in recliner with a few rest breaks. Pt asks for repositioning in chair, Nurse assists VISUAL DESIGNER. Pt transfers from recliner to standing due to uncomfortable. Pt ambulates to EOB then transfers to Supine with assistance. Pt resting at end of tx with all needs met. Assessment Current Status: Good Progress Pt continues to push self despite pain but this does limit mobility and transfers. PT Short Term Goals Short Term Goals Time Frame: Dec 28, 2018 Gait (FIM): 4 PT Fiscal Manager Goals Retirement Goals PT Fiscal Manager Goals Time Frame: January 09, 2019 Transfers (B,C,W/C) (FIM): 6 Sit to Lying (QC): 6 Lying-Sitting on Side/Bed(QC): 6 Sit to Stand (QC): 6 Rollin Roll Left to Right (QC): 6 Chair/Roa-jt-Ojrek Xfer(QC): 6 Car Transfer (QC): 6 Does the Patient Walk: Yes Gait (FIM): 6 Gait distance (FIM): 3=150 ft Walk 10 feet (QC): 6 Walk 10ft-Uneven Surface(QC): 6 Walk 50ft with 2 Turns (QC): 6 Walk 150 ft (QC): 6 Gait Assistive Device: FWW Does the Pt use WC or Scooter?: No Stairs (FIM): 5 # of Steps: 4 1 Step (curb) (QC): 6 4 Steps (QC): 6 12 Steps (QC): 10 Picking up an Object (QC): 10 PT Plan Problem List Problem List: Activity Tolerance, Functional Strength, Safety, Balance, Gait, Transfer, Bed Mobility Treatment/Plan Treatment Plan: Continue Plan of Care Treatment Plan: Bed Mobility, Education, Functional Activity Melissa, Functional Strength, Group Therapy, Gait, Safety, Therapeutic Exercise, Transfers Treatment Duration: January 09, 2019 Frequency: At least 5 of 7 days/Wk (IRF) Estimated Hrs Per Day: 1.5 hours per day Patient and/or Family Agrees t: Yes Safety Risks/Education Patient Education: Transfer Techniques, Correct Positioning, Safety Issues Teaching Recipient: Patient Teaching Methods: Discussion Response to Teaching: Verbalize Understanding Time/GCodes Time In: 1100 Time Out: 1125 Total Billed Treatment Time: 25 Total Billed Treatment 1, EX (15m) & FA (10m) G Codes Necessary: GABRIEL Martin PTA Dec 22, 2018 12:04
--- NOTE | 2018-12-22 12:39 | PM&R Progress Note ---
Subjective HPI/CC On Admission Date Seen by Provider: Dec 22, 2018 Time Seen by Provider: 12:15 CC: Sacral fracture in need of IRF prior to going home to live alone HPI: This is an 88yoWF clinic patient of [facility] in [place], [place] who also sees Nephrology at [place] and Cardiology at [place] who presents to IRF due to sacral fracture in need of intensive rehab prior to returning home to live alone independently. Her PLOF was independent and family is involved in her care. She fell on 12/12/18 at home and did not feel like she hurt herself until she began having left leg and left pelvis pain 3 days later and reported to the ER which dx the sacral fracture and was given pain meds and sent home. Patient presented to Dr Kent's office yesterday and was assessed to not require surgery but due to pain and unable to go back home due to debility she was admitted for observation to [facility] and consulted IRF at [facility]. Currently she just took a shower and is feeling much better. Patient has not had a BM for 2 days. Patient does have bladder stress incontinence. I have reviewed her home meds and restarted all of them. 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 She had 2 sons, 1 is 6 yrs ago from a non-purposeful narcotic OD. She will return home at the completion of IRF. Subjective/Events-last exam Can't urinate when she is up to the toilet and BSC Incontinence chronic basis anyway Lovenox will be started for DVT PPx DNI orders placed Checked meds and labs Reviewed therapy notes No falls but high risk Tolerating pain meds BM+ Review of Systems General: Fatigue Musculoskeletal: back pain Objective Exam Vital Signs Vital Signs Date Time Temp Pulse Resp B/P (MAP) Pulse Ox O2 Delivery O2 Flow Rate FiO2 12/23/18 08:55 98.4 60 18 155/80 (105) 96 Room Air Capillary Refill : Less Than 3 Seconds General Appearance: No Apparent Distress, WD/WN, Chronically ill, Obese HEENT: PERRL/EOMI, Normal ENT Inspection, Pharynx Normal, Moist Mucous Membranes Neck: Full Range of Motion, Normal Inspection, Non Tender, Supple Respiratory: Chest Non Tender, Lungs Clear, Normal Breath Sounds, No Accessory Muscle Use, No Respiratory Distress Cardiovascular: Regular Rate, Rhythm, No Edema, No Gallop, No JVD, No Murmur Gastrointestinal: Normal Bowel Sounds, No Organomegaly, No Pulsatile Mass, Non Tender, Soft Back: Normal Inspection, No CVA Tenderness, Decreased Range of Motion Extremity: Normal Capillary Refill, Normal Inspection, Normal Range of Motion, Non Tender, No Calf Tenderness, No Pedal Edema Neurologic/Psychiatric: Alert, Oriented x3, No Motor/Sensory Deficits, Normal Mood/Affect, Motor Weakness (weakness 4/5 all extremities) Skin: Normal Color, Warm/Dry Lymphatic: No Adenopathy Results/Procedures Lab Patient resulted labs reviewed. Assessment/Plan Assessment and Plan Assess & Plan/Chief Complaint Assessment/Plan: (1) Sacral fracture, closed- no surgical repair option (2) Debility- needs IRF to return to OF of independent, Lovenox for immobile state and DVT PPx (3) Hypertension- home meds and monitor closely (4) Hyperlipidemia- home meds (5) Renal insufficiency- monitor creatinine closely and check labs am (6) Anemia- monitor hgb (7) RLS (restless legs syndrome)- home meds (8) Fall-PT/OT to educate on safety and fall risk (9) Allergic rhinitis- on Singulair (10) Constipation- start meds (11) Sacral pain- add Ultram and Hydrocodone monitor for delirium (12) Incontinence (1) Sacral fracture, closed (2) Anemia (3) Hyperlipidemia (4) Renal insufficiency (5) Allergic rhinitis (6) Debility (7) Hypertension (8) Fall (9) RLS (restless legs syndrome) (10) Constipation (11) Sacral pain (12) Incontinence (13) DVT of proximal leg (deep vein thrombosis) Clinical Quality Measures DVT/VTE Risk/Contraindication: Risk Factor Score Per Nursin RFS Level Per Nursing on Admit: 4+=Very High MIKE BRAMBILA DO Dec 22, 2018 12:39
[2018-12-22] MEDS: ENOXAPARIN 40 MG/0.4 ML (LOVENOX) SYR SC SCH (13:11)
--- NOTE | 2018-12-22 13:13 | NUR ---
When asked about code status, patient states that, "compressions are ok, but I don't want to be on the ventilator". Dr. Christopher informed.
[2018-12-22 16:24] VITALS: BP 116/67
[2018-12-22] MEDS: MONTELUKAST 10 MG (SINGULAIR) TAB PO SCH (21:13)
[2018-12-23] MEDS: HYDROcodone/APAP 5 MG/325 MG (LORTAB) TAB PO PRN ×4 (04:56→20:51)
[2018-12-23] MEDS: CALCIUM CARB + VIT D 600 MG (CALCARB + D) TAB PO SCH ×2 (04:56→16:40)
[2018-12-23] MEDS: [UNRECOGNIZED DRUG - OTHER] PO SCH ×2 (04:57→16:40)
[2018-12-23 05:10] VITALS: BP 150/77
[2018-12-23 08:55] VITALS: BP 155/80
[2018-12-23] MEDS: lisINopril 20 MG (PRINIVIL) TABLET PO SCH ×2 (08:59→20:50)
[2018-12-23] MEDS: ATENOLOL 50 MG (TENORMIN) TAB PO SCH ×2 (08:59→20:50)
[2018-12-23] MEDS: DOCUSATE SODIUM 100 MG (COLACE) CAP PO SCH (08:59)
[2018-12-23] MEDS: PREGABALIN 75 MG (LYRICA) CAP PO SCH ×2 (08:59→20:50)
[2018-12-23] MEDS: VITAMIN D3 1,000 UNITS (CHOLECALCIFEROL) TABLET PO SCH (08:59)
[2018-12-23] MEDS: ASPIRIN E.C. 81 MG (ECOTRIN) TAB PO SCH ×2 (08:59→20:50)
[2018-12-23] MEDS: amLODIPine 10 MG (NORVASC) TAB PO SCH (08:59)
[2018-12-23] MEDS: SPIRONOLACTONE 25 MG (ALDACTONE) TAB PO SCH (08:59)
[2018-12-23] MEDS: FENOFIBRATE 160 MG TABLET PO SCH (09:01)
[2018-12-23] MEDS: KRILL OIL 350 MG PO SCH (09:01)
--- NOTE | 2018-12-23 11:40 | PM&R Progress Note ---
Subjective HPI/CC On Admission Date Seen by Provider: Dec 23, 2018 Time Seen by Provider: 12:15 CC: Sacral fracture in need of IRF prior to going home to live alone HPI: This is an 88yoWF clinic patient of [facility] in [place], [place] who also sees Nephrology at [place] and Cardiology at [place] who presents to IRF due to sacral fracture in need of intensive rehab prior to returning home to live alone independently. Her PLOF was independent and family is involved in her care. She fell on 12/12/18 at home and did not feel like she hurt herself until she began having left leg and left pelvis pain 3 days later and reported to the ER which dx the sacral fracture and was given pain meds and sent home. Patient presented to Dr Kent's office yesterday and was assessed to not require surgery but due to pain and unable to go back home due to debility she was admitted for observation to [facility] and consulted IRF at [facility]. Currently she just took a shower and is feeling much better. Patient has not had a BM for 2 days. Patient does have bladder stress incontinence. I have reviewed her home meds and restarted all of them. 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 She had 2 sons, 1 is 6 yrs ago from a non-purposeful narcotic OD. She will return home at the completion of IRF. Subjective/Events-last exam Family at bedside and met them Can't urinate when she is up to the toilet and BSC like yesterday due to the severe pain Fentanyl patch at 12mcg started but told patient and family regarding possible side effects Incontinence chronic basis anyway so wearing depends Lovenox started for DVT PPx DNI orders placed yesterday Checked meds and labs Reviewed therapy notes No falls but high risk Tolerating pain meds BM not yet so initiated aggressive meds Review of Systems Gastrointestinal: Constipation Musculoskeletal: back pain Objective Exam Vital Signs Vital Signs Date Time Temp Pulse Resp B/P (MAP) Pulse Ox O2 Delivery O2 Flow Rate FiO2 12/23/18 15:27 99.8 62 16 133/73 (93) 99 Room Air Capillary Refill : Less Than 3 Seconds General Appearance: No Apparent Distress, WD/WN, Chronically ill, Obese HEENT: PERRL/EOMI, Normal ENT Inspection, Pharynx Normal, Moist Mucous Membranes Neck: Full Range of Motion, Normal Inspection, Non Tender, Supple Respiratory: Chest Non Tender, Lungs Clear, Normal Breath Sounds, No Accessory Muscle Use, No Respiratory Distress Cardiovascular: Regular Rate, Rhythm, No Edema, No Gallop, No JVD, No Murmur Gastrointestinal: Normal Bowel Sounds, No Organomegaly, No Pulsatile Mass, Non Tender, Soft Back: Normal Inspection, No CVA Tenderness, Decreased Range of Motion Extremity: Normal Capillary Refill, Normal Inspection, Normal Range of Motion, Non Tender, No Calf Tenderness, No Pedal Edema Neurologic/Psychiatric: Alert, Oriented x3, No Motor/Sensory Deficits, Normal Mood/Affect, Motor Weakness (weakness 4/5 all extremities) Skin: Normal Color, Warm/Dry Lymphatic: No Adenopathy Results/Procedures Lab Patient resulted labs reviewed. Assessment/Plan Assessment and Plan Assess & Plan/Chief Complaint Assessment/Plan: (1) Sacral fracture, closed- no surgical repair option (2) Debility- needs IRF to return to OF of independent, Lovenox for immobile state and DVT PPx (3) Hypertension- home meds and monitor closely (4) Hyperlipidemia- home meds (5) Renal insufficiency- monitor creatinine closely and check labs am (6) Anemia- monitor hgb (7) RLS (restless legs syndrome)- home meds (8) Fall-PT/OT to educate on safety and fall risk (9) Allergic rhinitis- on Singulair (10) Constipation- start meds that she takes at home (11) Sacral pain- add Ultram and Hydrocodone monitor for delirium but add Fentanyl patch 12mcg today 12/23/18 (12) Incontinence (1) Sacral fracture, closed (2) Anemia (3) Hyperlipidemia (4) Renal insufficiency (5) Allergic rhinitis (6) Debility (7) Hypertension (8) Fall (9) RLS (restless legs syndrome) (10) Constipation (11) Sacral pain (12) Incontinence (13) DVT prophylaxis Clinical Quality Measures DVT/VTE Risk/Contraindication: Risk Factor Score Per Nursin RFS Level Per Nursing on Admit: 4+=Very High MIKE BRAMBILA DO Dec 23, 2018 11:40
[2018-12-23] MEDS: ENOXAPARIN 40 MG/0.4 ML (LOVENOX) SYR SC SCH (12:28)
[2018-12-23] MEDS ORDERED: fentaNYL PATCH 12 MCG (DURAGESIC) TD SCH (13:00)
[2018-12-23] MEDS ORDERED: BISACODYL 10 MG SUPP (DULCOLAX) PR ONE (13:00)
--- NOTE | 2018-12-23 13:00 | NUR ---
Dr. Christopher to floor. Informed of uncontrolled pain. Unable to void on BSC or toilet D/T pain. Has been incontinent in brief. Chair time is also limited D/T pain. Also, no BM noted since 12/19/18. Colace, Miralax, and Lactulose given this AM. New orders for Fentanyl patch (12 MCG), Dulcolax suppository X1, and Senna S PO BID.
--- NOTE | 2018-12-23 13:42 | NUR ---
Up to the BSC. Moderate amount of brown, semi formed stool noted. Patient refusing Dulcolax suppository.
--- NOTE | 2018-12-23 15:22 | NUR ---
Up again to the BSC. Another moderate amount of brown, semi formed stool noted.
[2018-12-23 15:27] VITALS: BP 133/73
[2018-12-23 18:27] LABS: BILIRUBIN,URINE NEGATIVE (NEGATIVE); CLARITY,URINE CLEAR; COLOR,URINE YELLOW; GLUCOSE, URINE (UA) NEGATIVE (NEGATIVE); KETONES,URINE NEGATIVE (NEGATIVE); LEUKOCYTE ESTERASE ,URINE 3+ (NEGATIVE); NITRITE,URINE POSITIVE (NEGATIVE); PH,URINE 5 (5-9); PROTEIN,URINE NEGATIVE (NEGATIVE); UROBILINOGEN,URINE 1 MG/DL (NORMAL)
--- NOTE | 2018-12-23 18:32 | NUR ---
Temp is 100.8. Dr. Christopher notified. Orders to straight cath for a UA, culture if indicated. Straight cath done without difficulty. Cloudy, light sheryr urine immediate return. Patient tolerated well.
[2018-12-23 18:43] LABS: WBC,URINE 25-50 /HPF
[2018-12-23 18:44] LABS: BACTERIA,URINE LARGE /HPF; SQUAMOUS EPITHELIAL CELL,UR 0-2 /HPF
[2018-12-23] MEDS ORDERED: AMOXICILLIN 250 MG (POLYMOX) CAP PO SCH (19:00)
--- NOTE | 2018-12-23 19:13 | NUR ---
Dr. Christopher called with UA results. Orders to start Amoxicillin- 500 MG PO BID.
[2018-12-23] MEDS ORDERED: AMOXICILLIN 500 MG (POLYMOX) CAP PO ONE ×2 (20:27→20:32)
[2018-12-23] MEDS: AMOXICILLIN 500 MG (POLYMOX) CAP PO SCH (20:49)
[2018-12-23] MEDS: MONTELUKAST 10 MG (SINGULAIR) TAB PO SCH (20:49)
[2018-12-23] MEDS: SENNA W/DOCUSATE (SENOKOT S) TABLET PO SCH (20:53)
[2018-12-23] MEDS ORDERED: SENNA W/DOCUSATE (SENOKOT S) TABLET PO SCH (21:00)
[2018-12-24 05:11] VITALS: BP 129/75
[2018-12-24] MEDS: AMOXICILLIN 500 MG (POLYMOX) CAP PO SCH ×2 (06:07→17:49)
[2018-12-24] MEDS: [UNRECOGNIZED DRUG - OTHER] PO SCH ×2 (06:07→17:47)
[2018-12-24] MEDS: HYDROcodone/APAP 5 MG/325 MG (LORTAB) TAB PO PRN ×2 (06:08→10:14)
[2018-12-24] MEDS: CALCIUM CARB + VIT D 600 MG (CALCARB + D) TAB PO SCH ×2 (06:08→17:47)
[2018-12-24] MEDS: SENNA W/DOCUSATE (SENOKOT S) TABLET PO SCH ×2 (07:46→20:47)
--- NOTE | 2018-12-24 08:46 | PM&R Progress Note ---
Subjective HPI/CC On Admission Date Seen by Provider: Dec 24, 2018 Time Seen by Provider: 08:15 CC: Sacral fracture in need of IRF prior to going home to live alone HPI: This is an 88yoWF clinic patient of [facility] in [place], [place] who also sees Nephrology at [facility] and [facility]iology at [facility] who presents to IRF due to sacral fracture in need of intensive rehab prior to returning home to live alone independently. Her PLOF was independent and family is involved in her care. She fell on 12/12/18 at home and did not feel like she hurt herself until she began having left leg and left pelvis pain 3 days later and reported to the ER which dx the sacral fracture and was given pain meds and sent home. Patient presented to Dr Kent's office yesterday and was assessed to not require surgery but due to pain and unable to go back home due to debility she was admitted for observation to [facility] and consulted IRF at [facility]. Currently she just took a shower and is feeling much better. Patient has not had a BM for 2 days. Patient does have bladder stress incontinence. I have reviewed her home meds and restarted all of them. 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 She had 2 sons, 1 is 6 yrs ago from a non-purposeful narcotic OD. She will return home at the completion of IRF. Subjective/Events-last exam Having no Fentanyl side effects. Pain is adequately controlled. Pt did have two bowel movements yesterday. Had urinary frequency yesterday and a low grade fever so obtained UA via in/out catheter revealing UTI UTI is being treated with Amoxicillin until cultures come back. She does have recurrent UTIs and does have urinary retention she reports. Will consult Dr. Aguilar. Having some nausea and she does get like that when she takes her medications. Checked meds and labs. Overall very stable but pain is limiting factor in participating in intensive therapies so hopefully the Fentanyl patch will help. Review of Systems Musculoskeletal: back pain Objective Exam Vital Signs Vital Signs Date Time Temp Pulse Resp B/P (MAP) Pulse Ox O2 Delivery O2 Flow Rate FiO2 12/24/18 09:00 Room Air 12/24/18 05:11 97.1 61 18 129/75 (93) 99 Capillary Refill : Less Than 3 Seconds General Appearance: No Apparent Distress, WD/WN, Chronically ill, Obese HEENT: PERRL/EOMI, Normal ENT Inspection, Pharynx Normal, Moist Mucous Membranes Neck: Full Range of Motion, Normal Inspection, Non Tender, Supple Respiratory: Chest Non Tender, Lungs Clear, Normal Breath Sounds, No Accessory Muscle Use, No Respiratory Distress Cardiovascular: Regular Rate, Rhythm, No Edema, No Gallop, No JVD, No Murmur Gastrointestinal: Normal Bowel Sounds, No Organomegaly, No Pulsatile Mass, Non Tender, Soft Back: Normal Inspection, No CVA Tenderness, Decreased Range of Motion Extremity: Normal Capillary Refill, Normal Inspection, Normal Range of Motion, Non Tender, No Calf Tenderness, No Pedal Edema Neurologic/Psychiatric: Alert, Oriented x3, No Motor/Sensory Deficits, Normal Mood/Affect, Motor Weakness (weakness 4/5 all extremities) Skin: Normal Color, Warm/Dry Lymphatic: No Adenopathy Results/Procedures Lab Patient resulted labs reviewed. Assessment/Plan Assessment and Plan Assess & Plan/Chief Complaint Assessment/Plan: (1) Sacral fracture, closed- no surgical repair option (2) Debility- needs IRF to return to [facility] of independent, Lovenox for immobile state and DVT PPx (3) Hypertension- home meds and monitor closely (4) Hyperlipidemia- home meds (5) Renal insufficiency- monitor creatinine closely and check labs am (6) Anemia- monitor hgb (7) RLS (restless legs syndrome)- home meds (8) Fall-PT/OT to educate on safety and fall risk (9) Allergic rhinitis- on Singulair (10) Constipation- start meds that she takes at home and now resolved 12/24/18 (11) Sacral pain- add Ultram and Hydrocodone monitor for delirium but add Fentanyl patch 12mcg today 12/23/18 (12) Incontinence (13) UTI- placed on Amoxil until UCx completed and consulting Dr Aguilar (1) Sacral fracture, closed (2) Anemia (3) Hyperlipidemia (4) Renal insufficiency (5) Allergic rhinitis (6) Debility (7) Hypertension (8) Fall (9) RLS (restless legs syndrome) (10) Constipation (11) Sacral pain (12) Incontinence (13) DVT prophylaxis (14) Neurogenic bladder (15) UTI (urinary tract infection) Clinical Quality Measures DVT/VTE Risk/Contraindication: Risk Factor Score Per Nursin RFS Level Per Nursing on Admit: 4+=Very High MIKE BRAMBILA DO Dec 24, 2018 08:46
[2018-12-24] MEDS: PREGABALIN 75 MG (LYRICA) CAP PO SCH ×2 (09:14→20:43)
[2018-12-24] MEDS: lisINopril 20 MG (PRINIVIL) TABLET PO SCH ×2 (09:14→20:43)
[2018-12-24] MEDS: amLODIPine 10 MG (NORVASC) TAB PO SCH (09:14)
[2018-12-24] MEDS: ATENOLOL 50 MG (TENORMIN) TAB PO SCH ×2 (09:14→20:43)
[2018-12-24] MEDS: VITAMIN D3 1,000 UNITS (CHOLECALCIFEROL) TABLET PO SCH (09:14)
[2018-12-24] MEDS: SPIRONOLACTONE 25 MG (ALDACTONE) TAB PO SCH (09:14)
[2018-12-24] MEDS: ASPIRIN E.C. 81 MG (ECOTRIN) TAB PO SCH ×2 (09:15→20:43)
[2018-12-24] MEDS: KRILL OIL 350 MG PO SCH (09:16)
[2018-12-24] MEDS: FENOFIBRATE 160 MG TABLET PO SCH (09:16)
--- NOTE | 2018-12-24 09:22 | NUR ---
HOOK AND EYE MACHINE OPERATOR met with patient to complete initial assessment. Patient was alert and oriented and agreeable to assessment. Patient admitted to ARU from [facility] with sacral fracture patient reports fall resulting in fracture. Prior to fall, patient reports independence at home with use of four-wheel walker. Patient resides alone in a one level home in [place], [place]. The home has 1 small step at the entrance without rails. Patient had no problem navigating step or throughout the home. Patient continued to drive and grocery shop; however, frequently had meals delivered. Patient's home was independent with a bath chair, grab bars and tall toilet. Patient identifies sonLeonel as POA. Leonel resides in [place] and can be reached at [phone] or [id number], Sarahy at [phone]. Patient identifies secondary contact as ex [id number] Cassidy of [place] at [phone]. Patient receives care at [facility] with Zaida French. Insurance verified as Medicare and [place] Medicaid with prescription coverage. Patient utilizes [facility] and [facility] for pharmacy needs. HOOK AND EYE MACHINE OPERATOR reviewed typical ARU length of stay and weekly team conferences. Patient expresses no concerns at this time, other than severe pain with movement.
--- NOTE | 2018-12-24 10:57 | Occupational Ther Daily Note ---
OT Current Status-Daily Note Subjective Pt lying in bed talking to family welfare social work professor. Pt agrees to therapy. Pt has no pain when lying in supine. As pt moves to go from supine to sitting then in sitting, rates pain 10 and above/10. Nrsg in room and gives pain meds. Discussed with pt about the benefits of moving. Mental Status/Objective Patient Orientation: Person, Place, Time, Situation Therapy Code Descriptions/Definitions Functional [place] Measure: 0=Not Assessed/NA 4=Minimal Assistance 1=Total Assistance 5=Supervision or Setup 2=Maximal Assistance 6=Modified [place] 3=Moderate Assistance 7=Complete [place] ADL-Treatment Pt takes increased time to complete tasks due to increased pain, self limiting. Max A for supine to sitting. Increased pain with sitting, pt throws self back in bed (nrsg present in room). Min A sit to stand and SPT using FWW. Pt tends to use FWW to pull to stand instead of push to stand. When sitting in w/c , pt extends L LE and leans R stating that it hurts to sit and that L LE is going numb. Attempted to get pt comfortable though pt holds breath and continues to say she can't do anything it hurts to bad and the pain medicine is not working. Pt sat in front of sink and washed face while L LE raised and leaning R over arm of w/c. Total assist to don lower body clothing. Set up for upper body clothing. Pt sat in recliner with LE's elevated and seat back all the way. After therapy, pt reclined in recliner with call light/phone in reach. All needs met in room. Therapy Code Descriptions/Definitions Functional [place] Measure: 0=Not Assessed/NA 4=Minimal Assistance 1=Total Assistance 5=Supervision or Setup 2=Maximal Assistance 6=Modified [place] 3=Moderate Assistance 7=Complete [place] Therapy Quality Codes: 6 Independent with activity with or without an assistive device 5 Patient requires set up or clean up by helper. Patient completes activity by themselves 4 Supervision or touching assist (CGA). [place] provide cues , steadying assist 3 The helper provides less than half the effort to complete the activity 2 The helper provides more than half the effort to complete the activity 1 Dependent. The helper does all the effort to complete an activity 7 Patient refused to complete or attempt activity 9 The patient did not perform the activity before the current illness or injury 88 Not attempted due to Medical conditions or safety concerns Upper Body (FIM): 5 Upper Body Dressing (QC): 5 Lower Body Dressing (FIM): 1 Lower Body Dressing (QC): 1 On/Off Footwear (QC): 1 OT Short Term Goals Short Term Goals Time Frame: Dec 28, 2018 Bathing(FIM): 4 Upper Body Dressing(FIM): 5 Lower Body Dressing(FIM): 4 Toileting(FIM): 4 Toilet/Commode Transfer(FIM): 5 Comprehension(FIM): 4 (CGA) Additional Short Term Goals: 1-Demonstrate ADL Tasks, 2-Verbalize Understanding , 3-ImproveStrength/Melissa 1=Demonstrate adherence to instructed precautions during ADL tasks. 2=Patient will verbalize/demonstrate understanding of assistive devices/ modifications for ADL. 3=Patient will improve strength/tolerance for activity to enable patient to perform ADL's. OT Sintering Press Operator Goals Sintering Press Operator Goals Time Frame: January 11, 2019 Eating (FIM): 7 Eating (QC): 6 Groomin Oral Hygiene (QC): 6 Bathing(FIM): 5 Shower/Bathe Self (QC): 5 Upper Body Dressing(FIM): 5 Upper Body Dressing (QC): 6 Lower Body Dressing(FIM): 5 Lower Body Dressing (QC): 6 On/Off Footwear (QC): 6 Toileting(FIM): 6 Toileting Hygiene (QC): 6 Toilet/Commode Transfer(FIM): 6 Toilet/Commode Transfer (QC): 6 Shower Transfer(FIM): 5 Comprehension(FIM): 7 Expression (FIM): 7 Social Interaction(FIM): 7 Problem Solving(FIM): 7 Memory(FIM): 7 Additional Goals: 1-Demonstrate ADL Tasks, 2-Verbalize Understanding, 3- ImproveStrength/Melissa 1=Demonstrate adherence to instructed precautions during ADL tasks. 2=Patient will verbalize/demonstrate understanding of assistive devices/ modifications for ADL. 3=Patient will improve strength/tolerance for activity to enable patient to perform ADL's. OT Education/Plan Problem List/Assessment Pt to benefit from skilled OT intervention for ADL training, transfers, strengthening, and safety education to increase level of independence and allow safe return home. Discharge Recommendations Plan/Recommendations: Continue POC Treatment Plan/Plan of Care Patient would benefit from OT for education, treatment and training to promote independence in ADL's, mobility, safety and/or upper extremity function for ADL' s. Treatment Duration: January 11, 2019 Frequency: At least 5 of 7 days/Wk (IRF) Estimated Hrs Per Day: 1.5 hours per day Rehab Potential: Good Time/GCodes Start Time: 10:00 Stop Time: 11:00 Total Time Billed (hr/min): 60 Billed Treatment Time 1 visit-ADL 4 (60 min) CECILIA MOSELEY Dec 24, 2018 10:57
--- NOTE | 2018-12-24 11:41 | Physical Therapy Daily Note ---
PT Daily Note-Current Subjective Pt reports she is doing the best that she can with this pain she is having. States she thinks something else must be wrong other than just the pelvic fx because she is having so much pain and her leg keeps going to sleep. States she has no pain when lying flat or reclined, pain is intense with left leg going numb, to sleep when she moves, transfers and walks. Pain Numeric Pain Scale: 0-No Pain Comment: no pain when laying still or reclined Appearance Pt reclined in recliner upon arrival, awake and alert talking with family members At end of session, pt supine in bed with call light, phone and bedside table within reach Mental Status Patient Orientation: Person, Place, Time, Eyes Open, Situation Transfers Therapy Code Descriptions/Definitions Functional [place] Measure: 0=Not Assessed/NA 4=Minimal Assistance 1=Total Assistance 5=Supervision or Setup 2=Maximal Assistance 6=Modified [place] 3=Moderate Assistance 7=Complete [place] Therapy Quality Codes: 6 Independent with activity with or without an assistive device 5 Patient requires set up or clean up by helper. Patient completes activity by themselves 4 Supervision or touching assist (CGA). Susan provide cues , steadying assist 3 The helper provides less than half the effort to complete the activity 2 The helper provides more than half the effort to complete the activity 1 Dependent. The helper does all the effort to complete an activity 7 Patient refused to complete or attempt activity 9 The patient did not perform the activity before the current illness or injury 88 Not attempted due to Medical conditions or safety concerns Transfers (B, C, W/C) (FIM): 4 Scootin Rollin Supine to/from Sit: 4 Sit to/from Stand: 5 Pt requiring min assist with most transitions, Encouragement to perform as much for herself as possible. Pt moaning with all movement due to increasing pain Weight Bearing Right Lower Extremity: Right Weight Bearing/Tolerated Left Lower Extremity: Left Weight Bearing/Tolerated Gait Training Gait (FIM): 2 Distance (FIM): 6=747-09 ft Distance: 75 Gait Level of Assist: 5 Gait Persons Needed: 1 Gait Assistive Device: FWW antalgic, slow pace, decreased step length and height, moaning with each step, increasing pain and numbness down leg. Max encouragement to increase gait distance Exercises Supine Ex: Bridging, Ankle pumps (x40), Quad Set, Glut sets, Lower trunk rotation, Heel Slides, Straight leg raise, Hip abd/add Supine Reps: 10 ((+)Bilat hip IR/ER) Treatments functional mobility, gait, transfer, safety, strengthening, ROM, activity tolerance Assessment Current Status: Fair Progress pain greatly limits pt's ability to perform activities PT Short Term Goals Short Term Goals Time Frame: Dec 28, 2018 Gait (FIM): 4 PT Pyrotechnics Press Tender Goals Detention Goals PT Detention Goals Time Frame: January 09, 2019 Transfers (B,C,W/C) (FIM): 6 Sit to Lying (QC): 6 Lying-Sitting on Side/Bed(QC): 6 Sit to Stand (QC): 6 Rollin Roll Left to Right (QC): 6 Chair/Wxz-ek-Abomh Xfer(QC): 6 Car Transfer (QC): 6 Does the Patient Walk: Yes Gait (FIM): 6 Gait distance (FIM): 3=150 ft Walk 10 feet (QC): 6 Walk 10ft-Uneven Surface(QC): 6 Walk 50ft with 2 Turns (QC): 6 Walk 150 ft (QC): 6 Gait Assistive Device: FWW Does the Pt use WC or Scooter?: No Stairs (FIM): 5 # of Steps: 4 1 Step (curb) (QC): 6 4 Steps (QC): 6 12 Steps (QC): 10 Picking up an Object (QC): 10 PT Plan Treatment/Plan Treatment Plan: Continue Plan of Care Treatment Plan: Bed Mobility, Education, Functional Activity Melissa, Functional Strength, Group Therapy, Gait, Safety, Therapeutic Exercise, Transfers Treatment Duration: January 09, 2019 Frequency: At least 5 of 7 days/Wk (IRF) Estimated Hrs Per Day: 1.5 hours per day Patient and/or Family Agrees t: Yes Safety Risks/Education Patient Education: Gait Training, Transfer Techniques, Disease Process, Safety Issues Teaching Recipient: Patient Teaching Methods: Demonstration, Discussion Response to Teaching: Verbalize Understanding, Return Demonstration, Reinforcement Needed Time/GCodes Time In: 1100 Time Out: 1200 Total Billed Treatment Time: 60 Total Billed Treatment 1 visit, FA x2, EX, GT YOHAN DE LOS SANTOS SENIOR QUALITY ENGINEER Dec 24, 2018 11:41
[2018-12-24] MEDS: ENOXAPARIN 40 MG/0.4 ML (LOVENOX) SYR SC SCH (13:00)
--- NOTE | 2018-12-24 14:39 | Therapy Group Daily Note ---
Therapy Daily Group Note Patient Education Topic Other List Below Exercises LE Seated Exercise, UE Exercise Session Ratio (pt:therapist): 3:1 Goal of Session: Education on ARU Expectations, UE/LE Strengthing Goal Met for this Session: Yes Pt Benefit of Group: Contributions to Others, Increased Functional Strength, Socialization Other/Notes Pt ambulated to OT/PT group in ARU commons area then was made comfortable in recliner due to increased pain voiced by pt. Group consisted of introductions ( name, place living, first job), socialization, ARU expectations/description, UE/ LE seated exercises and memory game. Pt able to introduce self thoroughly then actively listened to peers. Pt acknowledged understanding of ARU by voicing opinion and insight. Pt able to complete UE/LE seated exercises in supine. Using light wt ball, pt completed B LE exercise with assist to position ball correctly. After therapy, pt lying in recliner with call light/phone in reach. All needs met in room. Start Time: 13:00 Stop Time: 14:10 Total Billed Treatment Time: 70 Total Billed Treatment 1-GRP CECILIA MOSELEY Dec 24, 2018 14:39
--- NOTE | 2018-12-24 14:47 | Individualized Plan of Care ---
Individualized Plan of Care Rehab Nursing IPOC Order Admission Date Dec 21, 2018 at 12:20 Current Orders Orders Admission Order(Inpt,Obs,Sdc) (12/21/18 11:16) Vital Signs: Routine (Order) 08,,00 (12/21/18 11:16) Hunting And Fishing Guide-Inpt Rehab Con (12/21/18 11:16) Rehab Nursing Orders-Ipoc (12/21/18 11:16) Physical Therapy Rehab Orders (12/21/18 11:16) Occupational Therapy Rehab Ord (12/21/18 11:16) Speech Therapy Rehab Orders (12/21/18 11:16) General/Regular (12/21/18 Dinner) Intake & Output 06,14,22 (12/21/18 11:16) Precautions (Aru) (12/21/18 11:16) Weekly Weight (Lbs) WEEK (12/21/18 11:16) Rehab-Intensity Of Therapy (12/21/18 11:16) Initiate Admission Nursing Pro .admission (12/21/18 11:16) Nursing Communication (Order) (12/21/18 11:16) General/Regular (12/21/18 Lunch) Patient Visit (12/21/18 ) Pt Eval Moderate Complexity (12/21/18 ) Functional Activities, Ea 15 (12/21/18 ) Patient Visit (12/21/18 ) Exercise Therap, Ea 15 Min (12/21/18 ) Pharmacy Communication (Pharmacy Communi (12/21/18 15:15) Patient's Own Med(Rx Use Only) (Patient' (12/22/18 09:00) Patient's Own Med(Rx Use Only) (Patient' (12/22/18 09:00) Patient's Own Med(Rx Use Only) (Patient' (12/22/18 09:00) Ambulate 08,, (12/21/18 15:46) Sequential Compression Device , (12/21/18 15:46) Dvt/Vte Risk - Notifiy Physici 08 (12/21/18 15:46) Patient Visit (12/21/18 ) Speech Sound Lang Comp (12/21/18 ) Cbc With Automated Diff (12/22/18 07:00) Comprehensive Metabolic Panel (12/22/18 07:00) Aspirin Enteric Coated Tablet (Ecotrin T (12/21/18 21:00) Docusate Sodium Capsule (Colace Capsule) (12/21/18 21:00) Lisinopril Tablet (Zestril Tablet) (12/21/18 21:00) Pregabalin Capsule (Lyrica Capsule) (12/21/18 21:00) Spironolactone Tablet (Aldactone Tablet) (12/22/18 09:00) Tramadol Tablet (Ultram Tablet) (12/21/18 16:30) (Nf) Amlodipine Besylate (12/22/18 09:00) (Nf) Atenolol (12/21/18 21:00) (Nf) Atenolol (12/22/18 09:00) (Nf) Calcium Carbonate/Vitamin D3 (Calci (12/21/18 21:00) (Nf) Cholecalciferol (Vitamin D3) (Vitam (12/22/18 09:00) (Nf) Fenofibrate (12/22/18 09:00) (Nf) Krill/[place]-3/Dha/Epa/Lipids (Krill (12/22/18 09:00) (Nf) Montelukast Sodium (Singulair) (12/21/18 21:00) (Nf) Pedi Mv No.79/Ferrous Fumarate (Fli (12/21/18 21:00) Amlodipine Tablet (Norvasc Tablet) (12/22/18 09:00) Hydrocodone/Apap 5/325 Tablet (Lortab 5 (12/21/18 16:30) Acetaminophen Tablet (Tylenol Tablet) (12/21/18 16:30) Calcium Carbonate Chew Tablet (Antacid C (12/21/18 16:30) Diphenhydramine Tablet (Benadryl Tablet) (12/21/18 16:30) Lactulose Oral Solution (Enulose Oral So (12/21/18 16:30) Melatonin Tablet (Melatonin Tablet) (12/21/18 16:30) Polyethylene Glycol Powder Pkt (Miralax (12/21/18 16:30) Ondansetron Oral Dissolve Tab (Zofran (12/21/18 16:30) Atenolol Tablet (Tenormin Tablet) (12/21/18 21:00) Atenolol Tablet (Tenormin Tablet) (12/22/18 09:00) Calcium Carbonate W/Vitamin D3 (Calcarb (12/21/18 17:00) Cholecalciferol Capsule/Tablet (Vitamin (12/22/18 09:00) Montelukast Tablet (Singulair Tablet) (12/21/18 21:00) (Nf) Pedi Mv No.79/Ferrous Fumarate (Fli (12/22/18 07:00) Patient Visit (12/22/18 ) Exercise Therap, Ea 15 Min (12/22/18 ) Functional Activities, Ea 15 (12/22/18 ) Code/Resuscitation (12/22/18 12:30) Enoxaparin Injection (Lovenox Injection) (12/22/18 13:00) Fentanyl Patch (Duragesic Patch) (12/23/18 13:00) Senna S Tablet (Senokot S Tablet) (12/23/18 21:00) Bisacodyl Suppository (Dulcolax Supposit (12/23/18 13:00) Patch Removal (Patch Removal) (12/26/18 13:00) Ua Culture If Indicated (12/23/18 18:20) Urine Culture (12/23/18 18:17) Amoxicillin Capsule (Polymox Capsule) (12/23/18 19:00) Senna S Tablet (Senokot S Tablet) (12/23/18 21:00) Amoxicillin Capsule (Polymox Capsule) (12/23/18 20:27) Amoxicillin Capsule (Polymox Capsule) (12/23/18 20:32) Amoxicillin Capsule (Polymox Capsule) (12/23/18 21:00) Tamsulosin Capsule (Flomax Capsule) (12/24/18 18:00) Patient Visit (12/24/18 ) Functional Activities, Ea 15 (12/24/18 ) Exercise Therap, Ea 15 Min (12/24/18 ) Gait Training, Ea 15 Min (12/24/18 ) Patient Visit (12/24/18 ) Fentanyl Patch (Duragesic Patch) (12/25/18 08:45) Bladder Scan (12/25/18 08:42) Rehab Nursing Orders: Ongoing Assess. of Function Status, Bladder Management, Bladder Scan, Bladder Training, Bowel Management, Bowel Training, DVT Prophylaxis, Fluid/Electrolyte/Nutrition Mgmt, Infection Prevention, Medication Management & Education, Management of Risks & Complications, Management of Skin Intergrity, Pain Management, Patient/Family Support, Safety Management Intensity of Therapy to be met Patient to be seen: Min.3h per day/5 of 7d PT IPOC Problem List: Activity Tolerance, Functional Strength, Safety, Balance, Gait, Transfer, Bed Mobility Treatment Plan: Continue Plan of Care Bed Mobility, Education, Functional Activity Melissa, Functional Strength, Group Therapy, Gait, Safety, Therapeutic Exercise, Transfers Treatment Duration: January 09, 2019 Frequency: At least 5 of 7 days/Wk (IRF) Estimated Hrs Per Day: 1.5 hours per day OT IPOC Problems: Decreased Activ Tolerance, Decreased UE Strength, Dependent Transfers , Impaired I ADL's, Impaired Self-Care Skills OT Treatment, Training and Edu: Yes OT Problems Pt to benefit from skilled OT intervention for ADL training, transfers, strengthening, and safety education to increase level of independence and allow safe return home. Plan of Care: ADL Retraining, Functional Mobility Treatment Duration: January 11, 2019 Frequency: At least 5 of 7 days/Wk (IRF) Estimated Hrs Per Day: 1.[address] IPOC Speech Therapy Treatment Plan: Continue Plan of Care Treatment Duration: Dec 21, 2018 Frequency: 1 time per week Estimated Hrs Per Day: .25 hour per day Hunting And Fishing Guide/Case Mgmt Hunting And Fishing Guide/Case Managemen: Discharge Planning Dietitian/Strawhat Blocking Operator Dietitian/Strawhat Blocking Operator to monitor nutritional status and make changes and/or recommendations as needed and work with speech pathology on dietary upgrades as the occur. Physician IPOC Medical Issues being managed closely and that require the 24 hour availability of a physician: Severe pain and advanced age will requiring increased pain meds and high risk for delirium Medical Issues: Bowel/Bladder Function, DVT Prophylaxis, Falls Precautions, Fluid/Electrolyte/Nutrition Balance, Pain Management Brief Synthesis of Preadmission Screen, Post-Admission Evaluation, and Therapy Evaluations: PT/OT focus on ambulation and return to independent LOF Medical Prognosis: Good Anticipated Length of Stay: 14 days MIKE BRAMBILA DO Dec 24, 2018 14:47
[2018-12-24 17:28] VITALS: BP 131/52
[2018-12-24] MEDS: TAMSULOSIN 0.4 MG (FLOMAX) CAP PO SCH (17:47)
[2018-12-24] MEDS: MONTELUKAST 10 MG (SINGULAIR) TAB PO SCH (20:43)
[2018-12-24] MEDS: ACETAMINOPHEN 500 MG TAB (TYLENOL) PO PRN (20:50)
[2018-12-25] MEDS: HYDROcodone/APAP 5 MG/325 MG (LORTAB) TAB PO PRN ×3 (02:58→19:45)
[2018-12-25 05:09] VITALS: BP 145/67
--- NOTE | 2018-12-25 06:27 | CONSULTATION REPORT ---
DATE OF SERVICE: 12/24/2018 ATTENDING PHYSICIAN: Dr. Christopher. SUMMARY: An 88-year-old white lady admitted with sacral fracture for rehab and was found to have difficulty in urination and UTI. The patient says that it hurts, so much that she cannot void well. She can void in the bed, but not sitting or standing. She had no such problem at home before. IMPRESSION: Urinary retention, neurogenic or from the pain. RECOMMENDATIONS: 1. Pain control, which has been done. 2. Let her void the way she can. 3. Start on some Flomax for now. Job ID: [id number] DocumentID: [id number] Dictated Date: 12/24/2018 10:36:52 Drying Unit Felting Machine Operator Date: 12/24/2018 11:18:51 Dictated By: FERCHO ASHBY MD
[2018-12-25] MEDS: CALCIUM CARB + VIT D 600 MG (CALCARB + D) TAB PO SCH ×2 (06:39→17:17)
[2018-12-25] MEDS: [UNRECOGNIZED DRUG - OTHER] PO SCH ×2 (06:39→17:46)
[2018-12-25] MEDS: AMOXICILLIN 500 MG (POLYMOX) CAP PO SCH (06:39)
[2018-12-25] MEDS: ACETAMINOPHEN 500 MG TAB (TYLENOL) PO PRN (06:42)
[2018-12-25 08:00] VITALS: BP 109/65
--- NOTE | 2018-12-25 08:00 | NUR ---
COMPLAINS THAT SACRAL/LEFT LEG PAIN NOT CONTROLLED. DR. BRAMBILA INFORMED AND DURAGESIC PATCH INCREASED. STATES PAIN WITH MOVEMENT ONLY. STATES CANNOT VOID WHEN SITTING. CAN ONLY VOID WHEN LYING DOWN AND THAT IS WHY SHE IS INCONTINENT.
--- NOTE | 2018-12-25 08:13 | Physical Therapy Daily Note ---
PT Daily Note-Current Subjective Pt reports no pain when lying still, continues with intense pain down left leg and neuropathy feeling in leg. Agreeable to PT session. Pain Numeric Pain Scale: 0-No Pain Comment: intense pain with movement and walking down LLE Appearance 1st session: upon arrival, pt supine in bed, awake and alert At end of session, pt sitting up in recliner, LE's elevated, call light, phone and bedside table within reach 2nd session: pt sitting up in recliner upon arrival, awake and alert At end of session, pt R sidelying in bed with call light, bedside table and phone within reach Mental Status Patient Orientation: Person, Place, Time, Eyes Open, Situation Transfers Therapy Code Descriptions/Definitions Functional [place] Measure: 0=Not Assessed/NA 4=Minimal Assistance 1=Total Assistance 5=Supervision or Setup 2=Maximal Assistance 6=Modified [place] 3=Moderate Assistance 7=Complete [place] Therapy Quality Codes: 6 Independent with activity with or without an assistive device 5 Patient requires set up or clean up by helper. Patient completes activity by themselves 4 Supervision or touching assist (CGA). Anthon provide cues , steadying assist 3 The helper provides less than half the effort to complete the activity 2 The helper provides more than half the effort to complete the activity 1 Dependent. The helper does all the effort to complete an activity 7 Patient refused to complete or attempt activity 9 The patient did not perform the activity before the current illness or injury 88 Not attempted due to Medical conditions or safety concerns Transfers (B, C, W/C) (FIM): 4 Scootin Rollin Supine to/from Sit: 4 Sit to/from Stand: 5 all transitions slow and guarded, increased pain with all movements. requires min assist with LE's in and out of bed due to pain. CGA and encouragement to perform without physical assist with sit to and from stand Weight Bearing Right Lower Extremity: Right Weight Bearing/Tolerated Left Lower Extremity: Left Weight Bearing/Tolerated Gait Training Does the Patient Walk?: Yes Gait (FIM): 2 Distance (FIM): 1=881-94 ft Distance: 1st and 2nd session each: 100' Gait Level of Assist: 5 Gait Persons Needed: 1 Gait Assistive Device: FWW 1st session: adjusted walker so pt can use UE's more to support wt off of LLE for now due to severely increased pain with weight bearing. slow guarded posturing, decreased speed, decreased step length and height, antalgic gt with decreased WB LLE. 2nd session: increased rest breaks required due to increasing fatigue and pain, increased antalgic gait Exercises Supine Ex: Bridging, Ankle pumps, Pelvic tilt, Quad Set, Glut sets, Lower trunk rotation, Heel Slides, Short Arc Quads, Straight leg raise, Hip abd/add Supine Reps: 20 (AROM 10 x2 each LE, (+) toe curls) 2nd session: reclined in recliner, BLE exercises x 20-30 each: toe curls, ankle pumps, heel slides, SLR Treatments bed mobility, strengthening, functional mobility, activity tolerance, pain control, breathing techniques, gait, transfers, balance, safety, ROM Assessment Current Status: Good Progress LLE IR, L ankle inversion but able to to correct with instruction, just not able to maintain. increased ex's and gait distance from yesterday. Pt is trying very hard to work through the pain. PT Short Term Goals Short Term Goals Time Frame: Dec 28, 2018 Gait (FIM): 4 PT Long-Term Goals School Social Worker Goals PT Long-Term Goals Time Frame: January 09, 2019 Transfers (B,C,W/C) (FIM): 6 Sit to Lying (QC): 6 Lying-Sitting on Side/Bed(QC): 6 Sit to Stand (QC): 6 Rollin Roll Left to Right (QC): 6 Chair/Wtg-ar-Rdteq Xfer(QC): 6 Car Transfer (QC): 6 Does the Patient Walk: Yes Gait (FIM): 6 Gait distance (FIM): 3=150 ft Walk 10 feet (QC): 6 Walk 10ft-Uneven Surface(QC): 6 Walk 50ft with 2 Turns (QC): 6 Walk 150 ft (QC): 6 Gait Assistive Device: FWW Does the Pt use WC or Scooter?: No Stairs (FIM): 5 # of Steps: 4 1 Step (curb) (QC): 6 4 Steps (QC): 6 12 Steps (QC): 10 Picking up an Object (QC): 10 PT Plan Treatment/Plan Treatment Plan: Continue Plan of Care Treatment Plan: Bed Mobility, Education, Functional Activity Melissa, Functional Strength, Group Therapy, Gait, Safety, Therapeutic Exercise, Transfers Treatment Duration: January 09, 2019 Frequency: At least 5 of 7 days/Wk (IRF) Estimated Hrs Per Day: 1.5 hours per day Patient and/or Family Agrees t: Yes Safety Risks/Education Patient Education: Gait Training, Transfer Techniques, Correct Positioning, Disease Process, Safety Issues Teaching Recipient: Patient Teaching Methods: Demonstration, Discussion Response to Teaching: Verbalize Understanding, Return Demonstration Time/GCodes Time In: 800 (1115 2nd session) Time Out: 900 (1145 2nd session) Total Billed Treatment Time: 60 (30 2nd session) Total Billed Treatment 1st session: 1 visit, EX x2, GT x1, FA x1 2nd session: 1 visit, GT x1, EX x1 YOHAN DE LOS SANTOS ASSET CARD CLERK Dec 25, 2018 08:13
--- NOTE | 2018-12-25 08:36 | PM&R Progress Note ---
Subjective HPI/CC On Admission Date Seen by Provider: Dec 25, 2018 Time Seen by Provider: 08:40 CC: Sacral fracture in need of IRF prior to going home to live alone HPI: This is an 88yoWF clinic patient of [facility] in [place], [place] who also sees Nephrology at [place] and Cardiology at [facility] who presents to IRF due to sacral fracture in need of intensive rehab prior to returning home to live alone independently. Her PLOF was independent and family is involved in her care. She fell on 12/12/18 at home and did not feel like she hurt herself until she began having left leg and left pelvis pain 3 days later and reported to the ER which dx the sacral fracture and was given pain meds and sent home. Patient presented to Dr Kent's office yesterday and was assessed to not require surgery but due to pain and unable to go back home due to debility she was admitted for observation to [facility] and consulted IRF at [facility]. Currently she just took a shower and is feeling much better. Patient has not had a BM for 2 days. Patient does have bladder stress incontinence. I have reviewed her home meds and restarted all of them. 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 She had 2 sons, 1 is 6 yrs ago from a non-purposeful narcotic OD. She will return home at the completion of IRF. Subjective/Events-last exam Pain is still limiting factor. Increased Fentanyl from 12 to 25 micrograms every 72 hours. Having no side effects with the fentanyl. Dr. Aguilar consult is appreciated. Pain begins in the left buttock and goes down the left leg. If she cannot gain control of the pain it limits her activities, will need to go to a mcc. Will try our best to gain control of this pain but limiting factor is her advanced age at 88 years old and on narcotics could place her at risk for delirium for her side affects, and fall risk. Bowels are moving regularly and on her laxatives at night. Checked meds and labs and reviewed therapy notes. Ucx reviewed and changed Amoxil to Augmentin Review of Systems Musculoskeletal: back pain Objective Exam Vital Signs Vital Signs Date Time Temp Pulse Resp B/P (MAP) Pulse Ox O2 Delivery O2 Flow Rate FiO2 12/25/18 17:53 98.4 61 18 121/70 (87) 96 Room Air Capillary Refill : Less Than 3 Seconds General Appearance: No Apparent Distress, WD/WN, Chronically ill, Obese HEENT: PERRL/EOMI, Normal ENT Inspection, Pharynx Normal, Moist Mucous Membranes Neck: Full Range of Motion, Normal Inspection, Non Tender, Supple Respiratory: Chest Non Tender, Lungs Clear, Normal Breath Sounds, No Accessory Muscle Use, No Respiratory Distress Cardiovascular: Regular Rate, Rhythm, No Edema, No Gallop, No JVD, No Murmur Gastrointestinal: Normal Bowel Sounds, No Organomegaly, No Pulsatile Mass, Non Tender, Soft Back: Normal Inspection, No CVA Tenderness, Decreased Range of Motion Extremity: Normal Capillary Refill, Normal Inspection, Normal Range of Motion, Non Tender, No Calf Tenderness, No Pedal Edema Neurologic/Psychiatric: Alert, Oriented x3, No Motor/Sensory Deficits, Normal Mood/Affect, Motor Weakness (weakness 4/5 all extremities) Skin: Normal Color, Warm/Dry Lymphatic: No Adenopathy Results/Procedures Lab Patient resulted labs reviewed. FIM Transfers Therapy Code Descriptions/Definitions Functional [place] Measure: 0=Not Assessed/NA 4=Minimal Assistance 1=Total Assistance 5=Supervision or Setup 2=Maximal Assistance 6=Modified [place] 3=Moderate Assistance 7=Complete [place] Therapy Quality Codes: 6 Independent with activity with or without an assistive device 5 Patient requires set up or clean up by helper. Patient completes activity by themselves 4 Supervision or touching assist (CGA). [place] provide cues , steadying assist 3 The helper provides less than half the effort to complete the activity 2 The helper provides more than half the effort to complete the activity 1 Dependent. The helper does all the effort to complete an activity 7 Patient refused to complete or attempt activity 9 The patient did not perform the activity before the current illness or injury 88 Not attempted due to Medical conditions or safety concerns Gait Training Does the Patient Walk?: Yes Gait Assistive Device: FWW Mental Status/Objective Comprehension: 7 Expression: 7 Social Interaction: 7 Problem Solvin Memory: 6 ADL-Treatment Groomin Bathin Shower/Bathe Self (QC): 3 Upper Extremity Dressin Upper Body Dressing (QC): 5 Lower Extremity Dressin Lower Body Dressing (QC): 1 On/Off Footwear (QC): 1 Toiletin (Per PT report) Toilet/Commode Transfer: 4 (Per PT report) Toilet Transfer (QC): 3 Shower: 4 Assessment/Plan Assessment and Plan Assess & Plan/Chief Complaint Assessment/Plan: (1) Sacral fracture, closed- no surgical repair option (2) Debility- needs IRF to return to PLOF of independent, Lovenox for immobile state and DVT PPx (3) Hypertension- home meds and monitor closely (4) Hyperlipidemia- home meds (5) Renal insufficiency- monitor creatinine closely and check labs am (6) Anemia- monitor hgb (7) RLS (restless legs syndrome)- home meds (8) Fall-PT/OT to educate on safety and fall risk (9) Allergic rhinitis- on Singulair (10) Constipation- start meds that she takes at home and now resolved 12/24/18 (11) Sacral pain- add Ultram and Hydrocodone monitor for delirium but add Fentanyl patch 12mcg today 12/23/18 (12) Incontinence (13) UTI- placed on Amoxil then changed to Augmentin when UCx completed and consulting Dr Aguilar (1) Sacral fracture, closed (2) Anemia (3) Hyperlipidemia (4) Renal insufficiency (5) Allergic rhinitis (6) Debility (7) Hypertension (8) Fall (9) RLS (restless legs syndrome) (10) Constipation (11) Sacral pain (12) Incontinence (13) DVT prophylaxis (14) Neurogenic bladder (15) UTI (urinary tract infection) MIKE BRAMBILA DO Dec 25, 2018 08:36
[2018-12-25] MEDS: SENNA W/DOCUSATE (SENOKOT S) TABLET PO SCH ×2 (08:38→20:15)
[2018-12-25] MEDS: VITAMIN D3 1,000 UNITS (CHOLECALCIFEROL) TABLET PO SCH (08:38)
[2018-12-25] MEDS: ASPIRIN E.C. 81 MG (ECOTRIN) TAB PO SCH ×2 (08:39→20:14)
[2018-12-25] MEDS: lisINopril 20 MG (PRINIVIL) TABLET PO SCH ×2 (08:39→20:14)
[2018-12-25] MEDS: ATENOLOL 50 MG (TENORMIN) TAB PO SCH ×2 (08:39→20:15)
[2018-12-25] MEDS: amLODIPine 10 MG (NORVASC) TAB PO SCH (08:39)
[2018-12-25] MEDS: SPIRONOLACTONE 25 MG (ALDACTONE) TAB PO SCH (08:39)
[2018-12-25] MEDS: PREGABALIN 75 MG (LYRICA) CAP PO SCH ×2 (08:39→20:15)
--- NOTE | 2018-12-25 08:42 | Progress Note-Urology ---
Progress Note-Urology Progress Notes/Assess & Plan Progress/Assessment & Plan VOIDING WITH SOME INCONTINENCE. PLAN SCAN PVR Final Diagnosis URINE RETENTION FERCHO ASHBY MD Dec 25, 2018 08:42
[2018-12-25] MEDS: FENOFIBRATE 160 MG TABLET PO SCH (08:43)
[2018-12-25] MEDS: KRILL OIL 350 MG PO SCH (08:43)
[2018-12-25] MEDS ORDERED: fentaNYL PATCH 25 MCG (DURAGESIC) TD SCH (08:45)
--- NOTE | 2018-12-25 11:00 | NUR ---
DR. BRAMBILA NOTIFIED THAT URINE CULTURE IS BACK.
--- NOTE | 2018-12-25 11:53 | Occupational Ther Daily Note ---
OT Current Status-Daily Note Subjective Pt sitting in recliner, agrees to treatment. Pt reports 5/10 pain at rest, but increases to 10/10 pain with movement and when seated upright. Mental Status/Objective Therapy Code Descriptions/Definitions Functional [place] Measure: 0=Not Assessed/NA 4=Minimal Assistance 1=Total Assistance 5=Supervision or Setup 2=Maximal Assistance 6=Modified [place] 3=Moderate Assistance 7=Complete [place] ADL-Treatment Pt requests shower this morning. Sit to stand from recliner chair with minimal assistance and cues for hand placement. Gait to restroom with FWW. Transfer to walk in shower with minimal assistance using grab bar, skilled cues for safety. Pt completed seated bathing using hand held shower. Pt able to wash upper body, but unable to wash lower body secondary to pain. Would benefit from a long handled sponge. Pt reports increased pain with sitting and attempts to weight shift to right and keep weight off left hip, making it difficult to complete ADLs in this position. Pt transferred shower bench to w/c with minimal assistance. Required seated rest break with w/c partially reclined to decrease pain. Don pullover shirt with minimal assistance to pull down in back. Instruction provided regarding use of adaptive equipment for LE dressing. Pt used manager social to start Depends and pants over feet with moderate assistance. Stood with minimal assistance and pt able to complete pant hike with increased time. Pt used sock aid to don socks with mod assist. Combed hair with SBA. Pt transferred back to recliner with minimal assistance using FWW. Bilateral UE exercises completed while seated to increase strength needed for ADLs and transfers. Pt performed four exercises x10 reps using moderate resistance (red) theraband, focusing on shoulder and elbow movement. Rest breaks taken between exercises. Pt resting in chair with needs met after session. Therapy Code Descriptions/Definitions Functional [place] Measure: 0=Not Assessed/NA 4=Minimal Assistance 1=Total Assistance 5=Supervision or Setup 2=Maximal Assistance 6=Modified [place] 3=Moderate Assistance 7=Complete [place] Therapy Quality Codes: 6 Independent with activity with or without an assistive device 5 Patient requires set up or clean up by helper. Patient completes activity by themselves 4 Supervision or touching assist (CGA). [place] provide cues , steadying assist 3 The helper provides less than half the effort to complete the activity 2 The helper provides more than half the effort to complete the activity 1 Dependent. The helper does all the effort to complete an activity 7 Patient refused to complete or attempt activity 9 The patient did not perform the activity before the current illness or injury 88 Not attempted due to Medical conditions or safety concerns Grooming (FIM): 5 Bathing (FIM): 2 Shower/Bathe Self (QC): 2 Upper Body (FIM): 4 Upper Body Dressing (QC): 3 Lower Body Dressing (FIM): 3 Lower Body Dressing (QC): 3 On/Off Footwear (QC): 3 Education OT Patient Education: Modified ADL techniques Teaching Recipient: Patient Teaching Methods: Demonstration, Discussion Response to Teaching: Return Demonstration, Reinforcement Needed OT Short Term Goals Short Term Goals Time Frame: Dec 28, 2018 Bathing(FIM): 4 Upper Body Dressing(FIM): 5 Lower Body Dressing(FIM): 4 Toileting(FIM): 4 Toilet/Commode Transfer(FIM): 5 Comprehension(FIM): 4 (CGA) Additional Short Term Goals: 1-Demonstrate ADL Tasks, 2-Verbalize Understanding , 3-ImproveStrength/Melissa 1=Demonstrate adherence to instructed precautions during ADL tasks. 2=Patient will verbalize/demonstrate understanding of assistive devices/ modifications for ADL. 3=Patient will improve strength/tolerance for activity to enable patient to perform ADL's. OT Environmental Intern Goals Environmental Intern Goals Time Frame: January 11, 2019 Eating (FIM): 7 Eating (QC): 6 Groomin Oral Hygiene (QC): 6 Bathing(FIM): 5 Shower/Bathe Self (QC): 5 Upper Body Dressing(FIM): 5 Upper Body Dressing (QC): 6 Lower Body Dressing(FIM): 5 Lower Body Dressing (QC): 6 On/Off Footwear (QC): 6 Toileting(FIM): 6 Toileting Hygiene (QC): 6 Toilet/Commode Transfer(FIM): 6 Toilet/Commode Transfer (QC): 6 Shower Transfer(FIM): 5 Comprehension(FIM): 7 Expression (FIM): 7 Social Interaction(FIM): 7 Problem Solving(FIM): 7 Memory(FIM): 7 Additional Goals: 1-Demonstrate ADL Tasks, 2-Verbalize Understanding, 3- ImproveStrength/Melissa 1=Demonstrate adherence to instructed precautions during ADL tasks. 2=Patient will verbalize/demonstrate understanding of assistive devices/ modifications for ADL. 3=Patient will improve strength/tolerance for activity to enable patient to perform ADL's. OT Education/Plan Discharge Recommendations Plan/Recommendations: Continue POC Treatment Plan/Plan of Care Patient would benefit from OT for education, treatment and training to promote independence in ADL's, mobility, safety and/or upper extremity function for ADL' s. Plan of Care: ADL Retraining, Functional Mobility Treatment Duration: January 11, 2019 Frequency: At least 5 of 7 days/Wk (IRF) Estimated Hrs Per Day: 1.5 hours per day Rehab Potential: Good Time/GCodes Start Time: 09:15 Stop Time: 10:45 Total Time Billed (hr/min): 90 Billed Treatment Time 1 visit, ADLx5(75minutes), EX(15minutes) ALPHONSE DUNHAM OT Dec 25, 2018 11:53
[2018-12-25] MEDS: ENOXAPARIN 40 MG/0.4 ML (LOVENOX) SYR SC SCH (13:20)
--- NOTE | 2018-12-25 13:30 | NUR ---
HAD DENIED NEED TO VOID ALL DAY UNTIL NOW AND VOIDED A LARGE AMOUNT IN BED. POST VOID BLADDER SCAN SHOWED 7CC. DR. ASHBY NOTIFIED. NO NEW ORDERS.
[2018-12-25] MEDS: AUGMENTIN 500 MG TAB (AMOXICILLIN/CLAVULANATE) PO SCH (17:44)
[2018-12-25 17:53] VITALS: BP 121/70
[2018-12-25] MEDS: TAMSULOSIN 0.4 MG (FLOMAX) CAP PO SCH (18:09)
[2018-12-25] MEDS: MONTELUKAST 10 MG (SINGULAIR) TAB PO SCH (20:15)
[2018-12-26 06:07] VITALS: BP 119/69
[2018-12-26] MEDS: [UNRECOGNIZED DRUG - OTHER] PO SCH ×2 (06:11→17:29)
[2018-12-26] MEDS: HYDROcodone/APAP 5 MG/325 MG (LORTAB) TAB PO PRN ×4 (06:11→23:23)
[2018-12-26] MEDS: CALCIUM CARB + VIT D 600 MG (CALCARB + D) TAB PO SCH ×2 (06:11→17:28)
[2018-12-26] MEDS: AUGMENTIN 500 MG TAB (AMOXICILLIN/CLAVULANATE) PO SCH ×2 (06:11→17:27)
[2018-12-26 08:00] VITALS: BP 99/62
--- NOTE | 2018-12-26 08:00 | NUR ---
DR. BRAMBILA INFORMED THAT PATIENT ABLE TO SIT ON COMMODE TO EXPEL BM, BUT STILL UNABLE TO SIT TO VOID. PATIENT HAS CONTROL OF BLADDER BUT NEEDS TO BE IN A LYING POSITION TO VOID. UNABLE TO SIT ON BEDPAN. VOIDS IN DIAPER. ALSO COMPLAINS OF NUMBNESS IN LEFT FOOT.
[2018-12-26] MEDS: VITAMIN D3 1,000 UNITS (CHOLECALCIFEROL) TABLET PO SCH (08:32)
[2018-12-26] MEDS: PREGABALIN 75 MG (LYRICA) CAP PO SCH ×2 (08:32→20:55)
[2018-12-26] MEDS: FENOFIBRATE 160 MG TABLET PO SCH (08:33)
[2018-12-26] MEDS: ASPIRIN E.C. 81 MG (ECOTRIN) TAB PO SCH ×2 (08:33→20:55)
[2018-12-26] MEDS: KRILL OIL 350 MG PO SCH (08:33)
[2018-12-26] MEDS: SPIRONOLACTONE 25 MG (ALDACTONE) TAB PO SCH (08:33)
[2018-12-26] MEDS: SENNA W/DOCUSATE (SENOKOT S) TABLET PO SCH ×2 (08:37→20:55)
[2018-12-26] MEDS: amLODIPine 10 MG (NORVASC) TAB PO SCH (08:43)
[2018-12-26] MEDS: ATENOLOL 50 MG (TENORMIN) TAB PO SCH ×2 (08:43→20:55)
[2018-12-26] MEDS: lisINopril 20 MG (PRINIVIL) TABLET PO SCH ×2 (08:44→20:55)
--- NOTE | 2018-12-26 08:51 | PM&R Progress Note ---
Subjective HPI/CC On Admission Date Seen by Provider: Dec 26, 2018 Time Seen by Provider: 08:30 CC: Sacral fracture in need of IRF prior to going home to live alone HPI: This is an 88yoWF clinic patient of [facility] in [place], [place] who also sees Nephrology at [place] and Cardiology at [place] who presents to IRF due to sacral fracture in need of intensive rehab prior to returning home to live alone independently. Her PLOF was independent and family is involved in her care. She fell on 12/12/18 at home and did not feel like she hurt herself until she began having left leg and left pelvis pain 3 days later and reported to the ER which dx the sacral fracture and was given pain meds and sent home. Patient presented to Dr Kent's office yesterday and was assessed to not require surgery but due to pain and unable to go back home due to debility she was admitted for observation to [facility] and consulted IRF at [facility]. Currently she just took a shower and is feeling much better. Patient has not had a BM for 2 days. Patient does have bladder stress incontinence. I have reviewed her home meds and restarted all of them. 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 She had 2 sons, 1 is 6 yrs ago from a non-purposeful narcotic OD. She will return home at the completion of IRF. Subjective/Events-last exam Had a large BM last night. Minimal post void residual noted on scans. Fentanyl patch was increased to 25. Conferred with Dr. Kent there is no significant procedure like a sacroplasty that really has been shown to be beneficial since it appears such an advanced age individual risk may certainly outweigh the benefits. Will try Lidocaine patch and Baclofen, maintained on Fentanyl patch along with Lortab but due to the fact that she has such advanced age factor, she is so high risk of delirium may certainly cause problems with increased pain medication. Family was updated and they could not manage the patient or her needs at home so will need to look into a skilled facility if she fails IRF Reviewed therapy notes and she is progressing but slow progress. Review of Systems Musculoskeletal: back pain, leg pain, foot pain Neurological: Weakness, Incoordination Objective Exam Vital Signs Vital Signs Date Time Temp Pulse Resp B/P (MAP) Pulse Ox O2 Delivery O2 Flow Rate FiO2 12/26/18 18:00 98.3 65 18 127/68 (87) 99 Room Air Capillary Refill : Less Than 3 Seconds General Appearance: No Apparent Distress, WD/WN, Chronically ill, Obese HEENT: PERRL/EOMI, Normal ENT Inspection, Pharynx Normal, Moist Mucous Membranes Neck: Full Range of Motion, Normal Inspection, Non Tender, Supple Respiratory: Chest Non Tender, Lungs Clear, Normal Breath Sounds, No Accessory Muscle Use, No Respiratory Distress Cardiovascular: Regular Rate, Rhythm, No Edema, No Gallop, No JVD, No Murmur Gastrointestinal: Normal Bowel Sounds, No Organomegaly, No Pulsatile Mass, Non Tender, Soft Back: Normal Inspection, No CVA Tenderness, Decreased Range of Motion Extremity: Normal Capillary Refill, Normal Inspection, Normal Range of Motion, Non Tender, No Calf Tenderness, No Pedal Edema Neurologic/Psychiatric: Alert, Oriented x3, No Motor/Sensory Deficits, Normal Mood/Affect, Motor Weakness (weakness 4/5 all extremities) Skin: Normal Color, Warm/Dry Lymphatic: No Adenopathy Results/Procedures Lab Patient resulted labs reviewed. FIM Transfers Therapy Code Descriptions/Definitions Functional [place] Measure: 0=Not Assessed/NA 4=Minimal Assistance 1=Total Assistance 5=Supervision or Setup 2=Maximal Assistance 6=Modified [place] 3=Moderate Assistance 7=Complete [place] Therapy Quality Codes: 6 Independent with activity with or without an assistive device 5 Patient requires set up or clean up by helper. Patient completes activity by themselves 4 Supervision or touching assist (CGA). [place] provide cues , steadying assist 3 The helper provides less than half the effort to complete the activity 2 The helper provides more than half the effort to complete the activity 1 Dependent. The helper does all the effort to complete an activity 7 Patient refused to complete or attempt activity 9 The patient did not perform the activity before the current illness or injury 88 Not attempted due to Medical conditions or safety concerns Gait Training Does the Patient Walk?: Yes Distance (FIM): 1=up to 49 ft Mental Status/Objective Comprehension: 7 Expression: 7 Social Interaction: 7 Problem Solvin Memory: 6 ADL-Treatment Groomin Bathin Shower/Bathe Self (QC): 2 Upper Extremity Dressin Upper Body Dressing (QC): 3 Lower Extremity Dressin Lower Body Dressing (QC): 3 On/Off Footwear (QC): 3 Toiletin (Per PT report) Toilet/Commode Transfer: 4 (Per PT report) Toilet Transfer (QC): 3 Shower: 4 Assessment/Plan Assessment and Plan Assess & Plan/Chief Complaint Assessment/Plan: (1) Sacral fracture, closed- no surgical repair option (2) Debility- needs IRF to return to [facility] of independent, Lovenox for immobile state and DVT PPx (3) Hypertension- home meds and monitor closely (4) Hyperlipidemia- home meds (5) Renal insufficiency- monitor creatinine closely and checked labs (6) Anemia- monitor hgb (7) RLS (restless legs syndrome)- home meds (8) Fall-PT/OT to educate on safety and fall risk (9) Allergic rhinitis- on Singulair (10) Constipation- start meds that she takes at home and now resolved 12/24/18 (11) Sacral pain- add Ultram and Hydrocodone monitor for delirium but added Fentanyl patch 12mcg on 12/23/18 and increased to 25mcg on 12/26/18 (12) Incontinence (13) UTI- placed on Amoxil then changed to Augmentin when UCx completed and consulting Dr Aguilar Plan: Continue therapies Continue abx Bowel regimen Increase Fentanyl patch Add Baclofen and Lidocaine patch to do everything possible to help with the pain and succeed in IRF but all have side effects in advanced age and could cause delirium (1) Sacral fracture, closed (2) Anemia (3) Hyperlipidemia (4) Renal insufficiency (5) Allergic rhinitis (6) Debility (7) Hypertension (8) Fall (9) RLS (restless legs syndrome) (10) Constipation (11) Sacral pain (12) Incontinence (13) DVT prophylaxis (14) Neurogenic bladder (15) UTI (urinary tract infection) MIKE BRAMBILA DO Dec 26, 2018 08:51
--- NOTE | 2018-12-26 09:01 | Physical Therapy Daily Note ---
PT Daily Note-Current Subjective Pt. in bed and states she has urinated in her diaper and wants to be changed. This ARTIFICIAL LEATHER CALENDER OPERATOR educated pt. that it would be advantageous to sit on the BSC for attempts at urination . Pt. states it no use because she cant go on the toilet. Educated this pt as well that it will help prepare her for home to get use to toileting on BSC and wearing a brief. Pt. states her pain is 12/10 and she has numb sensation in her left foot. Pt. states she doesnt know when she is urinating but does feel sensation to have BM. Pt. remarks multiple times that this therapy is too much unless the pain can be reduced with medication etc. Pt. also expressed that she had considered NH skilled care but there were none in her home area Pain Numeric Pain Scale: 7 Location: Left Location Body Site: Hip Pain Description: Stabbing Comment: pt. moaning and breathing in a pattern depicting pain and anxiety Mental Status Patient Orientation: Person, Place, Time, Situation, Normal For Age Transfers Therapy Code Descriptions/Definitions Functional [place] Measure: 0=Not Assessed/NA 4=Minimal Assistance 1=Total Assistance 5=Supervision or Setup 2=Maximal Assistance 6=Modified [place] 3=Moderate Assistance 7=Complete [place] Therapy Quality Codes: 6 Independent with activity with or without an assistive device 5 Patient requires set up or clean up by helper. Patient completes activity by themselves 4 Supervision or touching assist (CGA). [place] provide cues , steadying assist 3 The helper provides less than half the effort to complete the activity 2 The helper provides more than half the effort to complete the activity 1 Dependent. The helper does all the effort to complete an activity 7 Patient refused to complete or attempt activity 9 The patient did not perform the activity before the current illness or injury 88 Not attempted due to Medical conditions or safety concerns Transfers (B, C, W/C) (FIM): 3 Scootin Rollin Supine to/from Sit: 3 Sit to/from Stand: 4 sit to stand and sit to supine all mod assist. needs assist for LEs in to bed. Weight Bearing Right Lower Extremity: Right Weight Bearing/Tolerated Left Lower Extremity: Left Weight Bearing/Tolerated Gait Training Does the Patient Walk?: Yes Gait (FIM): 1 Distance (FIM): 1=up to 49 ft (10ft x 3, 25, 20) Gait Level of Assist: 4 Gait Persons Needed: 1 Gait Assistive Device: FWW pt. walks unusually well for the pain she c/o of but declined multiple times to walk further., antalgic, heavy wt bearing on FWW Exercises Supine Ex: Bridging, Ankle pumps, Quad Set, Rolling, Glut sets, Heel Slides, Short Arc Quads, Scooting, Straight leg raise (assisted), Hip abd/add Supine Reps: 15 Seated Therapy Exercises: Ankle pumps, Sit to stand, Long arc quads, Hip flexion, Hip abd/add Seated Reps: 10 Treatments sit to stand as well as change of wet diaper , attempted to urinate and talk through and educate pt. regarding neurogenic bladder etc. max assist for doffing and doffing brief, pt. did attempt to clean herself but required assist to complete thoroughly Assessment Current Status: Fair Progress pain c/o greatly limit pts participation, some of pts symptoms may indicate further neurog pelvic ring injury. Remains to be seen whether or not pt. can complete 3hrs with good tolerance, stating today "this is very hard on me" PT Short Term Goals Short Term Goals Time Frame: Dec 28, 2018 Gait (FIM): 4 PT Longterm Goals Manager [place] Goals PT Manager [place] Goals Time Frame: January 09, 2019 Transfers (B,C,W/C) (FIM): 6 Sit to Lying (QC): 6 Lying-Sitting on Side/Bed(QC): 6 Sit to Stand (QC): 6 Rollin Roll Left to Right (QC): 6 Chair/Dlf-ow-Zohar Xfer(QC): 6 Car Transfer (QC): 6 Does the Patient Walk: Yes Gait (FIM): 6 Gait distance (FIM): 3=150 ft Walk 10 feet (QC): 6 Walk 10ft-Uneven Surface(QC): 6 Walk 50ft with 2 Turns (QC): 6 Walk 150 ft (QC): 6 Gait Assistive Device: FWW Does the Pt use WC or Scooter?: No Stairs (FIM): 5 # of Steps: 4 1 Step (curb) (QC): 6 4 Steps (QC): 6 12 Steps (QC): 10 Picking up an Object (QC): 10 PT Plan Treatment/Plan Treatment Plan: Continue Plan of Care Treatment Plan: Bed Mobility, Education, Functional Activity Melissa, Functional Strength, Group Therapy, Gait, Safety, Therapeutic Exercise, Transfers Treatment Duration: January 09, 2019 Frequency: At least 5 of 7 days/Wk (IRF) Estimated Hrs Per Day: 1.5 hours per day Patient and/or Family Agrees t: Yes Safety Risks/Education Patient Education: Gait Training, Transfer Techniques, Correct Positioning, Disease Process, Safety Issues Teaching Recipient: Patient Teaching Methods: Demonstration, Discussion Response to Teaching: Verbalize Understanding, Return Demonstration, Reinforcement Needed discussed and educated regarding importance of activity and walikng to work through some pain as well as prevent pneumonia and blood clots etc as well as possible skin break down Time/GCodes Time In: 800 (1130) Time Out: 900 (100) Total Billed Treatment Time: 90 Total Billed Treatment 1x2,FA45m,EX20m, GT25m G Codes Necessary: JUSTIN Mcclain ARTIFICIAL LEATHER CALENDER OPERATOR Dec 26, 2018 09:01
--- NOTE | 2018-12-26 12:02 | Occupational Ther Daily Note ---
OT Current Status-Daily Note Subjective Pt sitting in chair, agrees to treatment. Pt reports 9/10 pain with movement. Pain decreases with rest and positioning. Mental Status/Objective Therapy Code Descriptions/Definitions Functional [place] Measure: 0=Not Assessed/NA 4=Minimal Assistance 1=Total Assistance 5=Supervision or Setup 2=Maximal Assistance 6=Modified [place] 3=Moderate Assistance 7=Complete [place] ADL-Treatment Pt declined shower, but agrees to sponge bath. Pt completed bathing while seated in chair. Doffed shirt with SBA. Upper body bathing completed with SBA and increased time. Pt used dressing to stick to doff pants with min assist. Pt able to wash bilateral upper legs and alcon area. Required assist to wash buttocks and lower legs. Reviewed use of adaptive equipment for LE dressing. Pt used truck railroad and bus motor mechanic to start Depends and pants over feet with moderate assistance. Stood with min assist and pt able to complete pant hike. Pt takes frequent rest breaks secondary to pain. Requires increased time for bathing and dressing. Pt combed hair with set up while seated. Therapy Code Descriptions/Definitions Functional [place] Measure: 0=Not Assessed/NA 4=Minimal Assistance 1=Total Assistance 5=Supervision or Setup 2=Maximal Assistance 6=Modified [place] 3=Moderate Assistance 7=Complete [place] Therapy Quality Codes: 6 Independent with activity with or without an assistive device 5 Patient requires set up or clean up by helper. Patient completes activity by themselves 4 Supervision or touching assist (CGA). [place] provide cues , steadying assist 3 The helper provides less than half the effort to complete the activity 2 The helper provides more than half the effort to complete the activity 1 Dependent. The helper does all the effort to complete an activity 7 Patient refused to complete or attempt activity 9 The patient did not perform the activity before the current illness or injury 88 Not attempted due to Medical conditions or safety concerns Grooming (FIM): 5 Bathing (FIM): 3 Shower/Bathe Self (QC): 3 Upper Body (FIM): 5 Upper Body Dressing (QC): 4 Lower Body Dressing (FIM): 3 Lower Body Dressing (QC): 3 Other Treatment Pt completed bilateral UE activity to increase strength needed for ADLs and transfers. Pt performed five exercises x15 reps with moderate resistance (red) theraband. Rest breaks between exercises. Occasional cues for proper exercise technique. Bilateral hand licensed journeyman electrician exercises x20 reps with blue therapy foam. Pt completed resistance putty activity with bilateral hand to increase strength and coordination skills. Pt able to remove small bead from medium resistance putty without assistance. Pt states she is comfortable in chair and would like to remain sitting after session. All needs met. OT Short Term Goals Short Term Goals Time Frame: Dec 28, 2018 Bathing(FIM): 4 Upper Body Dressing(FIM): 5 Lower Body Dressing(FIM): 4 Toileting(FIM): 4 Toilet/Commode Transfer(FIM): 5 Comprehension(FIM): 4 (CGA) Additional Short Term Goals: 1-Demonstrate ADL Tasks, 2-Verbalize Understanding , 3-ImproveStrength/Melissa 1=Demonstrate adherence to instructed precautions during ADL tasks. 2=Patient will verbalize/demonstrate understanding of assistive devices/ modifications for ADL. 3=Patient will improve strength/tolerance for activity to enable patient to perform ADL's. OT Pc Technician Goals Half-Way Goals Time Frame: January 11, 2019 Eating (FIM): 7 Eating (QC): 6 Groomin Oral Hygiene (QC): 6 Bathing(FIM): 5 Shower/Bathe Self (QC): 5 Upper Body Dressing(FIM): 5 Upper Body Dressing (QC): 6 Lower Body Dressing(FIM): 5 Lower Body Dressing (QC): 6 On/Off Footwear (QC): 6 Toileting(FIM): 6 Toileting Hygiene (QC): 6 Toilet/Commode Transfer(FIM): 6 Toilet/Commode Transfer (QC): 6 Shower Transfer(FIM): 5 Comprehension(FIM): 7 Expression (FIM): 7 Social Interaction(FIM): 7 Problem Solving(FIM): 7 Memory(FIM): 7 Additional Goals: 1-Demonstrate ADL Tasks, 2-Verbalize Understanding, 3- ImproveStrength/Melissa 1=Demonstrate adherence to instructed precautions during ADL tasks. 2=Patient will verbalize/demonstrate understanding of assistive devices/ modifications for ADL. 3=Patient will improve strength/tolerance for activity to enable patient to perform ADL's. OT Education/Plan Discharge Recommendations Plan/Recommendations: Continue POC Treatment Plan/Plan of Care Patient would benefit from OT for education, treatment and training to promote independence in ADL's, mobility, safety and/or upper extremity function for ADL' s. Plan of Care: ADL Retraining, Functional Mobility Treatment Duration: January 11, 2019 Frequency: At least 5 of 7 days/Wk (IRF) Estimated Hrs Per Day: 1.5 hours per day Rehab Potential: Good Time/GCodes Start Time: 09:15 Stop Time: 10:45 Total Time Billed (hr/min): 90 Billed Treatment Time 1 visit, ADLx4(60minutes), EXx2(30minutes) ALPHONSE DUNHAM OT Dec 26, 2018 12:02
[2018-12-26] MEDS: LIDOCAINE 4% (SALONPAS) PATCH TOP SCH (13:42)
[2018-12-26] MEDS: ENOXAPARIN 40 MG/0.4 ML (LOVENOX) SYR SC SCH (13:45)
--- NOTE | 2018-12-26 16:55 | NUR ---
CANINE DEPUTY received contact from patient's [id number], Sarahy. Sarahy was very frustrated as information was provided to patient regarding nursing home placement. Patient reports to family and CANINE DEPUTY that a member of physical therapy informed patient of the need to discharge to a nursing home facility, prior to Team Conference Meeting. CANINE DEPUTY provided accurate update from team conference which reflected the decision to reevaluate progress on Monday before determining discharge planning needs. Dr. Christopher intends to initiate Baclofen in hopes to provide more pain management. Per staff report Pain Management continues to be the barrier for progress. If pain cannot become manageable and progress is not seen alternative solutions may require in-home care services versus need for nursing home placement; however, patient has had a bad experience and previous nursing facility and is hopeful to return home with support in place. CANINE DEPUTY will continue to follow progress. CANINE DEPUTY intends to meet with patient and family on Monday following reevaluation to discuss discharge plans.
--- NOTE | 2018-12-26 17:00 | NUR ---
REQUESTED HELP UP TO COMMODE AND DID EXPEL BM. TRIED TO VOID WHILE SITTING UP, BUT WAS UNABLE TO. CRIED OUT IN PAIN WHILE GETTING UP. HAS STARTED ON LIDODERM PATCH ON LEFT HIP.
[2018-12-26] MEDS: TAMSULOSIN 0.4 MG (FLOMAX) CAP PO SCH (17:40)
[2018-12-26 18:00] VITALS: BP 127/68
[2018-12-26] MEDS: MONTELUKAST 10 MG (SINGULAIR) TAB PO SCH (20:54)
[2018-12-26] MEDS: LIDOCAINE PATCH REMOVAL TP SCH (20:55)
[2018-12-26] MEDS: BACLOFEN 10 MG (LIORESAL) TAB PO SCH (20:55)
[2018-12-26 21:00] VITALS: BP 111/71
[2018-12-27] MEDS: AUGMENTIN 500 MG TAB (AMOXICILLIN/CLAVULANATE) PO SCH ×2 (06:06→16:57)
[2018-12-27] MEDS: CALCIUM CARB + VIT D 600 MG (CALCARB + D) TAB PO SCH ×2 (06:06→16:57)
[2018-12-27] MEDS: [UNRECOGNIZED DRUG - OTHER] PO SCH ×2 (06:06→16:57)
[2018-12-27 06:11] VITALS: BP 94/54
[2018-12-27 08:00] VITALS: BP 109/68
--- NOTE | 2018-12-27 08:00 | NUR ---
STATES SLEPT WELL. FEELS PAIN MIGHT BE BETTER THIS AM.
[2018-12-27] MEDS: BACLOFEN 10 MG (LIORESAL) TAB PO SCH ×2 (08:05→12:34)
[2018-12-27] MEDS: PREGABALIN 75 MG (LYRICA) CAP PO SCH ×2 (08:06→21:25)
[2018-12-27] MEDS: HYDROcodone/APAP 5 MG/325 MG (LORTAB) TAB PO PRN ×2 (08:06→12:39)
[2018-12-27] MEDS: SPIRONOLACTONE 25 MG (ALDACTONE) TAB PO SCH (08:07)
[2018-12-27] MEDS: ASPIRIN E.C. 81 MG (ECOTRIN) TAB PO SCH ×2 (08:07→21:17)
[2018-12-27] MEDS: VITAMIN D3 1,000 UNITS (CHOLECALCIFEROL) TABLET PO SCH (08:08)
[2018-12-27] MEDS: lisINopril 20 MG (PRINIVIL) TABLET PO SCH ×2 (08:29→19:38)
[2018-12-27] MEDS: amLODIPine 10 MG (NORVASC) TAB PO SCH (08:29)
[2018-12-27] MEDS: ATENOLOL 50 MG (TENORMIN) TAB PO SCH ×2 (08:29→19:38)
[2018-12-27] MEDS: SENNA W/DOCUSATE (SENOKOT S) TABLET PO SCH ×2 (08:42→19:38)
[2018-12-27] MEDS: KRILL OIL 350 MG PO SCH (08:42)
[2018-12-27] MEDS: FENOFIBRATE 160 MG TABLET PO SCH (08:42)
--- NOTE | 2018-12-27 08:50 | PM&R Progress Note ---
Subjective HPI/CC On Admission Date Seen by Provider: Dec 27, 2018 Time Seen by Provider: 08:30 CC: Sacral fracture in need of IRF prior to going home to live alone HPI: This is an 88yoWF clinic patient of [facility] in [place], [place] who also sees Nephrology at [place] and Cardiology at [place] who presents to IRF due to sacral fracture in need of intensive rehab prior to returning home to live alone independently. Her PLOF was independent and family is involved in her care. She fell on 12/12/18 at home and did not feel like she hurt herself until she began having left leg and left pelvis pain 3 days later and reported to the ER which dx the sacral fracture and was given pain meds and sent home. Patient presented to Dr Kent's office yesterday and was assessed to not require surgery but due to pain and unable to go back home due to debility she was admitted for observation to [facility] and consulted IRF at [facility]. Currently she just took a shower and is feeling much better. Patient has not had a BM for 2 days. Patient does have bladder stress incontinence. I have reviewed her home meds and restarted all of them. 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 She had 2 sons, 1 is 6 yrs ago from a non-purposeful narcotic OD. She will return home at the completion of IRF. Subjective/Events-last exam Had 2 BM's yesterday Minimal post void residual noted on scans so no longer scanning Fentanyl patch was increased to 25 and it appears that change and Baclofen has helped her a bit Forteo was brought up but there is no indication for that medication in acute phase which would not help with pain Lidocaine patch and Baclofen seems to be working and it helped her sleep last night Family was updated and they could not manage the patient or her needs at home so will need to look into a skilled facility if she fails IRF Reviewed therapy notes and she is progressing but slow progress. Urinary issues continue since she can't urinate when on toilet due to pain but she can have BM on toilet Review of Systems Musculoskeletal: back pain, leg pain Objective Exam Vital Signs Vital Signs Date Time Temp Pulse Resp B/P (MAP) Pulse Ox O2 Delivery O2 Flow Rate FiO2 12/27/18 09:00 Room Air 12/27/18 06:11 97.2 65 20 94/54 (67) 98 Capillary Refill : Less Than 3 Seconds General Appearance: No Apparent Distress, WD/WN, Chronically ill, Obese HEENT: PERRL/EOMI, Normal ENT Inspection, Pharynx Normal, Moist Mucous Membranes Neck: Full Range of Motion, Normal Inspection, Non Tender, Supple Respiratory: Chest Non Tender, Lungs Clear, Normal Breath Sounds, No Accessory Muscle Use, No Respiratory Distress Cardiovascular: Regular Rate, Rhythm, No Edema, No Gallop, No JVD, No Murmur Gastrointestinal: Normal Bowel Sounds, No Organomegaly, No Pulsatile Mass, Non Tender, Soft Back: Normal Inspection, No CVA Tenderness, Decreased Range of Motion Extremity: Normal Capillary Refill, Normal Inspection, Normal Range of Motion, Non Tender, No Calf Tenderness, No Pedal Edema Neurologic/Psychiatric: Alert, Oriented x3, No Motor/Sensory Deficits, Normal Mood/Affect, Motor Weakness (weakness 4/5 all extremities) Skin: Normal Color, Warm/Dry Lymphatic: No Adenopathy Results/Procedures Lab Patient resulted labs reviewed. FIM Transfers Therapy Code Descriptions/Definitions Functional [place] Measure: 0=Not Assessed/NA 4=Minimal Assistance 1=Total Assistance 5=Supervision or Setup 2=Maximal Assistance 6=Modified [place] 3=Moderate Assistance 7=Complete [place] Therapy Quality Codes: 6 Independent with activity with or without an assistive device 5 Patient requires set up or clean up by helper. Patient completes activity by themselves 4 Supervision or touching assist (CGA). [place] provide cues , steadying assist 3 The helper provides less than half the effort to complete the activity 2 The helper provides more than half the effort to complete the activity 1 Dependent. The helper does all the effort to complete an activity 7 Patient refused to complete or attempt activity 9 The patient did not perform the activity before the current illness or injury 88 Not attempted due to Medical conditions or safety concerns Gait Training Does the Patient Walk?: Yes Distance (FIM): 1=up to 49 ft Gait Assistive Device: FWW Mental Status/Objective Comprehension: 7 Expression: 7 Social Interaction: 7 Problem Solvin Memory: 6 ADL-Treatment Groomin Bathin Shower/Bathe Self (QC): 3 Upper Extremity Dressin Upper Body Dressing (QC): 4 Lower Extremity Dressin Lower Body Dressing (QC): 3 On/Off Footwear (QC): 3 Toiletin (Per PT report) Toilet/Commode Transfer: 4 (Per PT report) Toilet Transfer (QC): 3 Shower: 4 Assessment/Plan Assessment and Plan Assess & Plan/Chief Complaint Assessment/Plan: (1) Sacral fracture, closed- no surgical repair option (2) Debility- needs IRF to return to OF of independent, Lovenox for immobile state and DVT PPx (3) Hypertension- home meds and monitor closely (4) Hyperlipidemia- home meds (5) Renal insufficiency- monitor creatinine closely and checked labs (6) Anemia- monitor hgb (7) RLS (restless legs syndrome)- home meds (8) Fall-PT/OT to educate on safety and fall risk (9) Allergic rhinitis- on Singulair (10) Constipation- start meds that she takes at home and now resolved 12/24/18 (11) Sacral pain- add Ultram and Hydrocodone monitor for delirium but added Fentanyl patch 12mcg on 12/23/18 and increased to 25mcg on 12/26/18 (12) Incontinence (13) UTI- placed on Amoxil then changed to Augmentin when UCx completed and consulted Dr Aguilar Plan: Continue therapies Continue abx until done Bowel regimen working well Increase Fentanyl patch and may need to increase more in future Add Baclofen and Lidocaine patch to do everything possible to help with the pain and succeed in IRF but all have side effects in advanced age and could cause delirium (1) Sacral fracture, closed (2) Anemia (3) Hyperlipidemia (4) Renal insufficiency (5) Allergic rhinitis (6) Debility (7) Hypertension (8) Fall (9) RLS (restless legs syndrome) (10) Constipation (11) Sacral pain (12) Incontinence (13) DVT prophylaxis (14) Neurogenic bladder (15) UTI (urinary tract infection) MIKE BRAMBILA DO Dec 27, 2018 08:50
--- NOTE | 2018-12-27 09:30 | Physical Therapy Daily Note ---
PT Daily Note-Current Subjective Pt reports she just does not understand why her pain is still so bad even with the increased pain meds and patches they are giving her. Agreeable to PT session Pain Numeric Pain Scale: 9 Comment: buttocks and down left leg Appearance Upon arrival, pt supine in bed with eyes closed and resting. Easily aroused, but slurring words slightly Pt's brief wet, assisted pt in changing when getting out of bed At end of session, pt sitting in recliner reclined with LE's elevated, call light, phone and bedside table within reach Mental Status Patient Orientation: Person, Place, Time, Eyes Open, Situation Transfers Therapy Code Descriptions/Definitions Functional [place] Measure: 0=Not Assessed/NA 4=Minimal Assistance 1=Total Assistance 5=Supervision or Setup 2=Maximal Assistance 6=Modified [place] 3=Moderate Assistance 7=Complete [place] Therapy Quality Codes: 6 Independent with activity with or without an assistive device 5 Patient requires set up or clean up by helper. Patient completes activity by themselves 4 Supervision or touching assist (CGA). [place] provide cues , steadying assist 3 The helper provides less than half the effort to complete the activity 2 The helper provides more than half the effort to complete the activity 1 Dependent. The helper does all the effort to complete an activity 7 Patient refused to complete or attempt activity 9 The patient did not perform the activity before the current illness or injury 88 Not attempted due to Medical conditions or safety concerns Transfers (B, C, W/C) (FIM): 4 Scootin Rollin Supine to/from Sit: 4 Sit to/from Stand: 5 pt requiring min verb instruction for safety, hand placement and body placement with sit to and from stand transfers. Min A and max encouragement to perform as much as possible for herself with supine to sit. Slow movements and performance of transitions due to pain Weight Bearing Right Lower Extremity: Right Weight Bearing/Tolerated Left Lower Extremity: Left Weight Bearing/Tolerated Gait Training Does the Patient Walk?: Yes Gait (FIM): 2 Distance (FIM): 5=227-47 ft Distance: 124 Gait Level of Assist: 1 Gait Persons Needed: 1 Gait Assistive Device: FWW slow gait speed, decreased step length and height, antalgic gait, occasional dragging and decreased stance time of LLE due to pain. several stopping standing rest breaks due to pain. Increased pain with gait Exercises Supine Ex: Ankle pumps, Quad Set, Glut sets, Lower trunk rotation, Heel Slides , Short Arc Quads, Straight leg raise, Hip abd/add Supine Reps: 10 (BLE's, (+)toe curls) slow and painful with movements but working through the pain Treatments bed mobility, mod A with alcon care and changing brief, transfers, dressing Lower trunk mod A, transfers, gait, safety, functional mobility, activity tolerance, pain control techniques, balance, strengthening Assessment Current Status: Good Progress pain continues to limit mobility and activities, pt is working hard at working through her pain as much as she can, does moan quite a bit during therapy session and is very apologetic for it. PT Short Term Goals Short Term Goals Time Frame: Dec 28, 2018 Gait (FIM): 4 PT Merchandising Stock Associate Goals Mcc Goals PT Merchandising Stock Associate Goals Time Frame: January 09, 2019 Transfers (B,C,W/C) (FIM): 6 Sit to Lying (QC): 6 Lying-Sitting on Side/Bed(QC): 6 Sit to Stand (QC): 6 Rollin Roll Left to Right (QC): 6 Chair/Bps-nc-Mytre Xfer(QC): 6 Car Transfer (QC): 6 Does the Patient Walk: Yes Gait (FIM): 6 Gait distance (FIM): 3=150 ft Walk 10 feet (QC): 6 Walk 10ft-Uneven Surface(QC): 6 Walk 50ft with 2 Turns (QC): 6 Walk 150 ft (QC): 6 Gait Assistive Device: FWW Does the Pt use WC or Scooter?: No Stairs (FIM): 5 # of Steps: 4 1 Step (curb) (QC): 6 4 Steps (QC): 6 12 Steps (QC): 10 Picking up an Object (QC): 10 PT Plan Treatment/Plan Treatment Plan: Continue Plan of Care Treatment Plan: Bed Mobility, Education, Functional Activity Melissa, Functional Strength, Group Therapy, Gait, Safety, Therapeutic Exercise, Transfers Treatment Duration: January 09, 2019 Frequency: At least 5 of 7 days/Wk (IRF) Estimated Hrs Per Day: 1.5 hours per day Patient and/or Family Agrees t: Yes Safety Risks/Education Patient Education: Gait Training, Transfer Techniques, Correct Positioning, Disease Process, Safety Issues Teaching Recipient: Patient Teaching Methods: Demonstration, Discussion Response to Teaching: Verbalize Understanding, Return Demonstration, Reinforcement Needed Time/GCodes Time In: 910 Time Out: 1015 Total Billed Treatment Time: 65 Total Billed Treatment 1 visit, GT x 1 unit, EX x 1 unit, FA x2 units YOHAN DE LOS SANTOS PTA Dec 27, 2018 09:30
[2018-12-27] MEDS: LIDOCAINE 4% (SALONPAS) PATCH TOP SCH (10:20)
--- NOTE | 2018-12-27 12:00 | NUR ---
ABLE TO USE COMMODE TO EXPEL STOOL. IS WILLING TO TRY BEDPAN AGAIN TO VOID. DOES APPEAR TO HAVE LESS PAIN TODAY COMPARED TO YESTERDAY.
--- NOTE | 2018-12-27 12:02 | Occupational Ther Daily Note ---
OT Current Status-Daily Note Subjective Pt alert, reclining in chair. Pt c/o pain with movement 9/10 rated, no pain when lying still. Pt agrees to therapy. Pt states can we do things lying down. Mental Status/Objective Patient Orientation: Person, Place, Time, Situation Therapy Code Descriptions/Definitions Functional [place] Measure: 0=Not Assessed/NA 4=Minimal Assistance 1=Total Assistance 5=Supervision or Setup 2=Maximal Assistance 6=Modified [place] 3=Moderate Assistance 7=Complete [place] ADL-Treatment Pt declines shower. Agrees to sponge bath then remembers that lower body has already been washed up when her pants were put on. Attempted to get pt in sitting, pt c/o extreme pain with sitting up or having legs down and shelter reclined in chair. Chen of water positioned beside pt so that she would not have to bend forward. Pt able to complete upper body bathing/dressing by self after set up and encouragement. Pt declined to complete oral care. Therapy Code Descriptions/Definitions Functional [place] Measure: 0=Not Assessed/NA 4=Minimal Assistance 1=Total Assistance 5=Supervision or Setup 2=Maximal Assistance 6=Modified [place] 3=Moderate Assistance 7=Complete [place] Therapy Quality Codes: 6 Independent with activity with or without an assistive device 5 Patient requires set up or clean up by helper. Patient completes activity by themselves 4 Supervision or touching assist (CGA). [place] provide cues , steadying assist 3 The helper provides less than half the effort to complete the activity 2 The helper provides more than half the effort to complete the activity 1 Dependent. The helper does all the effort to complete an activity 7 Patient refused to complete or attempt activity 9 The patient did not perform the activity before the current illness or injury 88 Not attempted due to Medical conditions or safety concerns Upper Body (FIM): 5 Upper Body Dressing (QC): 5 Other Treatment Pt has self-limiting behavior due to pain with movement. Attempted to get pt to complete exceptional children's teacher and pinch strengthening while being partially reclined and feet up, pt unable to tolerate, moaning and adjusting position through task. Reclined pt fully to complete red theraband exercises. Skilled instruction needed for correct technique. 10 reps 1 set of 3 medium resistance theraband completed. Pt takes increased time to complete all tasks due to frequent breaks and position adjustments due to pain. After therapy, pt lying in bed with call light/phone in reach. All needs met in room. OT Short Term Goals Short Term Goals Time Frame: Dec 28, 2018 Bathing(FIM): 4 Upper Body Dressing(FIM): 5 Lower Body Dressing(FIM): 4 Toileting(FIM): 4 Toilet/Commode Transfer(FIM): 5 Comprehension(FIM): 4 (CGA) Additional Short Term Goals: 1-Demonstrate ADL Tasks, 2-Verbalize Understanding , 3-ImproveStrength/Melissa 1=Demonstrate adherence to instructed precautions during ADL tasks. 2=Patient will verbalize/demonstrate understanding of assistive devices/ modifications for ADL. 3=Patient will improve strength/tolerance for activity to enable patient to perform ADL's. OT Nursing Home Goals Nursing Home Goals Time Frame: January 11, 2019 Eating (FIM): 7 Eating (QC): 6 Groomin Oral Hygiene (QC): 6 Bathing(FIM): 5 Shower/Bathe Self (QC): 5 Upper Body Dressing(FIM): 5 Upper Body Dressing (QC): 6 Lower Body Dressing(FIM): 5 Lower Body Dressing (QC): 6 On/Off Footwear (QC): 6 Toileting(FIM): 6 Toileting Hygiene (QC): 6 Toilet/Commode Transfer(FIM): 6 Toilet/Commode Transfer (QC): 6 Shower Transfer(FIM): 5 Comprehension(FIM): 7 Expression (FIM): 7 Social Interaction(FIM): 7 Problem Solving(FIM): 7 Memory(FIM): 7 Additional Goals: 1-Demonstrate ADL Tasks, 2-Verbalize Understanding, 3- ImproveStrength/Melissa 1=Demonstrate adherence to instructed precautions during ADL tasks. 2=Patient will verbalize/demonstrate understanding of assistive devices/ modifications for ADL. 3=Patient will improve strength/tolerance for activity to enable patient to perform ADL's. OT Education/Plan Problem List/Assessment Assessment: Decreased Activ Tolerance, Decreased UE Strength, Impaired Self- Care Skills Discharge Recommendations Plan/Recommendations: Continue POC Treatment Plan/Plan of Care Patient would benefit from OT for education, treatment and training to promote independence in ADL's, mobility, safety and/or upper extremity function for ADL' s. Plan of Care: ADL Retraining, Functional Mobility Treatment Duration: January 11, 2019 Frequency: At least 5 of 7 days/Wk (IRF) Estimated Hrs Per Day: 1.5 hours per day Rehab Potential: Good Time/GCodes Start Time: 11:00 Stop Time: 12:00 Total Time Billed (hr/min): 60 Billed Treatment Time 1 visit-ADL 3 (50 min) EX 1 (10 min) CECILIA MOSELEY Dec 27, 2018 12:02
[2018-12-27] MEDS: ENOXAPARIN 40 MG/0.4 ML (LOVENOX) SYR SC SCH (12:36)
--- NOTE | 2018-12-27 13:02 | Progress Note-Urology ---
Progress Note-Urology Progress Notes/Assess & Plan Progress/Assessment & Plan VOIDING ON OWN. PVR 0. WE WILL SEE HER PRN Final Diagnosis URINE RETENTION (RESOLVED) FERCHO ASHBY MD Dec 27, 2018 13:02
--- NOTE | 2018-12-27 13:30 | NUR ---
Assumed care of patient. Report rec'd from JOSEFA العلي.
--- NOTE | 2018-12-27 15:02 | Therapy Group Daily Note ---
Therapy Daily Group Note Patient Education Topic Other List Below (memory strategies) Exercises LE Seated Exercise, UE Exercise Session Ratio (pt:therapist): 4:1 Goal of Session: Education on ARU Expectations, Memory Strategies, UE/LE Strengthing Goal Met for this Session: Yes Pt Benefit of Group: Contributions to Others, F/U Use of Strategies @Home, Increased Functional Strength, Improved Cognition, Recognition of Peers, Socialization Other/Notes Due to pain, pt brought to OT/PT group in recliner. Group consisted of introductions (name, place living, name of first pet), socialization, memory strategies, memory activity and UE/LE seated exercises. Pt able to introduce self appropriately and actively listened to peers. Pt was able to complete UE/ LE seated exercises though movements were small due to increased pain. Pt attempted to find matches during memory activity. Pt acknowledged understanding of memory strategies and gave own strategies as an example. After group, pt reclining in chair, sleeping in room. Call light/phone in reach. All needs met in room. Start Time: 13:00 Stop Time: 14:10 Total Billed Treatment Time: 70 Total Billed Treatment 1-GRP CECILIA MOSELEY Dec 27, 2018 15:02
[2018-12-27 15:10] VITALS: BP 130/65
[2018-12-27 15:48] VITALS: BP 105/65
--- NOTE | 2018-12-27 16:45 | NUR ---
CHIEF WHARFINGER met with patient's son and [id number] at their request. Expresses concerns of pain medication causing cognitive impairment and drowsiness; however, they understand the need to manage the pain and were aware of the possible side effects. Following lengthy discussion, [place] [facility], as patient continues to exhibit excruciating pain with any out of bed activity and has not made significant progress since admission. Family intends to contact CHIEF WHARFINGER on Monday with choices of facilities.
[2018-12-27] MEDS: TAMSULOSIN 0.4 MG (FLOMAX) CAP PO SCH (16:57)
--- NOTE | 2018-12-27 17:22 | NUR ---
In room to check on patient and give evening medications. Patient is drowsy. Difficult to awaken. Will open eyes and drift back off to sleep. Repeatedly states "sleepy". Not oriented. Equal stamp classifier strength. Fentanyl patch removed. VSS. See intervention for details. Dr. Christopher notified. Orders to hold Fentanyl patch and Baclofen. Per Dr. Christopher monitor only and patient "will have to sleep off".
[2018-12-27 18:25] VITALS: BP 124/68
--- NOTE | 2018-12-27 18:33 | NUR ---
Patient remains drowsy. Responds to name... and then goes back to sleep. VSS. T 97.7, P 57, R 16, 02 98% on room air, BP 124/68. Will continue to monitor.
[2018-12-27 19:06] VITALS: BP 114/53
--- NOTE | 2018-12-27 19:30 | NUR ---
More alert. Remains confused. Slow to respond. BP 114/53, P 59, oxygen 97% on room air. Dr. Christopher informed.
[2018-12-27] MEDS: MONTELUKAST 10 MG (SINGULAIR) TAB PO SCH (21:17)
[2018-12-27] MEDS: LIDOCAINE PATCH REMOVAL TP SCH (21:18)
--- NOTE | 2018-12-27 21:47 | NUR ---
Patient still drowsy and confused. Patient keeps stating "I don't remember."
[2018-12-28 02:09] VITALS: BP 121/82
[2018-12-28] MEDS: ACETAMINOPHEN 500 MG TAB (TYLENOL) PO PRN ×4 (05:49→23:33)
[2018-12-28] MEDS: CALCIUM CARB + VIT D 600 MG (CALCARB + D) TAB PO SCH ×2 (05:52→17:50)
[2018-12-28] MEDS: [UNRECOGNIZED DRUG - OTHER] PO SCH ×2 (05:52→17:18)
[2018-12-28] MEDS: AUGMENTIN 500 MG TAB (AMOXICILLIN/CLAVULANATE) PO SCH ×2 (05:52→17:18)
--- NOTE | 2018-12-28 08:41 | Physical Therapy Daily Note ---
PT Daily Note-Current Subjective Pt. in bed , definite mental status change from 40 hours ago when seen by this FENCE BUILDER for Rx. Pt. today moans and appears in distress repeating herself over and over, "please, please, please" and "Im home, Im home, Im home" Pt. does not accurately answer question and screams out when rolled and moved. Pain Comment: FLACC 8, Pt. does not make eye contact, eyes mostly fixed at ceiling Appearance pt. appears in distress with mental status change , doesnt answer questions , repeats words and phrases over and over, Pt. has on brief that is urine soaked, this was changed, attempts made to mobilize pt. only escalating her distress. Nursing states pt. recieved medications on Wed that she is "still trying to metabolize off" Mental Status Patient Orientation: Confused Transfers Therapy Code Descriptions/Definitions Functional [place] Measure: 0=Not Assessed/NA 4=Minimal Assistance 1=Total Assistance 5=Supervision or Setup 2=Maximal Assistance 6=Modified [place] 3=Moderate Assistance 7=Complete [place] Therapy Quality Codes: 6 Independent with activity with or without an assistive device 5 Patient requires set up or clean up by helper. Patient completes activity by themselves 4 Supervision or touching assist (CGA). [place] provide cues , steadying assist 3 The helper provides less than half the effort to complete the activity 2 The helper provides more than half the effort to complete the activity 1 Dependent. The helper does all the effort to complete an activity 7 Patient refused to complete or attempt activity 9 The patient did not perform the activity before the current illness or injury 88 Not attempted due to Medical conditions or safety concerns Rollin pt. needed rolled left and right for brief to be doffed and clean one donned which caused much discomfort, resistance and louder repeat of phrases and words over and over. Weight Bearing Right Lower Extremity: Right Weight Bearing/Tolerated Left Lower Extremity: Left Weight Bearing/Tolerated Exercises Supine Ex: Ankle pumps (passive), Rolling (max assist), Heel Slides (passive), Scooting (max assist), Straight leg raise (passive), Hip abd/add (passive) Supine Reps: 15 Treatments pt unable to cooperate for Rx, apparent pain and distress as well as noted mental status change, decreased level of alertness. Assessment Current Status: Regressing confused, MSC, apparent distress, BP160/70, HR 69, O2 sats 95%. unable to sit pt. at edge of bed or discuss what she might like to eat. Pt. confused, unsure of reason for this declined status PT Short Term Goals Short Term Goals Time Frame: Dec 28, 2018 Gait (FIM): 4 PT Mechanical System Technician Goals [facility] Goals PT Mechanical System Technician Goals Time Frame: January 09, 2019 Transfers (B,C,W/C) (FIM): 6 Sit to Lying (QC): 6 Lying-Sitting on Side/Bed(QC): 6 Sit to Stand (QC): 6 Rollin Roll Left to Right (QC): 6 Chair/Unf-bn-Fwskm Xfer(QC): 6 Car Transfer (QC): 6 Does the Patient Walk: Yes Gait (FIM): 6 Gait distance (FIM): 3=150 ft Walk 10 feet (QC): 6 Walk 10ft-Uneven Surface(QC): 6 Walk 50ft with 2 Turns (QC): 6 Walk 150 ft (QC): 6 Gait Assistive Device: FWW Does the Pt use WC or Scooter?: No Stairs (FIM): 5 # of Steps: 4 1 Step (curb) (QC): 6 4 Steps (QC): 6 12 Steps (QC): 10 Picking up an Object (QC): 10 PT Plan Treatment/Plan Treatment Plan: Continue Plan of Care (if cooperative, pt. declined) Treatment Plan: Bed Mobility, Education, Functional Activity Melissa, Functional Strength, Group Therapy, Gait, Safety, Therapeutic Exercise, Transfers Treatment Duration: January 09, 2019 Frequency: At least 5 of 7 days/Wk (IRF) Estimated Hrs Per Day: 1.5 hours per day Patient and/or Family Agrees t: Yes Safety Risks/Education Response to Teaching: Unable to Comprehend Time/GCodes Time In: 805 Time Out: 835 Total Billed Treatment Time: 30 Total Billed Treatment 1,FA30m G Codes Necessary: No JUSTIN BOWLES FENCE BUILDER Dec 28, 2018 08:41
--- NOTE | 2018-12-28 08:57 | NUR ---
RADIOGRAPHER ANGIOGRAM received call from patient's DIL requesting SNF referrals to be sent to [facility] and [facility]. Referrals were sent. Families first preference is [facility]. Patient was transitioned to 15 as of today due to pain limitations. Family has requested that only in bed activity occur. RADIOGRAPHER ANGIOGRAM contacted [facility] after referral was sent, they do have a bed available and will reach out to this RADIOGRAPHER ANGIOGRAM on Monday with acceptance determination.
--- NOTE | 2018-12-28 10:04 | Progress Note-Urology ---
Progress Note-Urology Progress Notes/Assess & Plan Progress/Assessment & Plan CONTINUES WELL CALLEJAS. SEE PRN Final Diagnosis URINE RETENTION (RESOLVED) FERCHO ASHBY MD Dec 28, 2018 10:04
[2018-12-28] MEDS: lisINopril 20 MG (PRINIVIL) TABLET PO SCH ×2 (10:13→20:18)
[2018-12-28] MEDS: SENNA W/DOCUSATE (SENOKOT S) TABLET PO SCH ×2 (10:13→20:14)
[2018-12-28] MEDS: PREGABALIN 75 MG (LYRICA) CAP PO SCH ×3 (10:13→20:15)
[2018-12-28] MEDS: VITAMIN D3 1,000 UNITS (CHOLECALCIFEROL) TABLET PO SCH (10:13)
[2018-12-28] MEDS: amLODIPine 10 MG (NORVASC) TAB PO SCH (10:13)
[2018-12-28] MEDS: SPIRONOLACTONE 25 MG (ALDACTONE) TAB PO SCH (10:14)
[2018-12-28] MEDS: ASPIRIN E.C. 81 MG (ECOTRIN) TAB PO SCH ×2 (10:14→20:15)
[2018-12-28] MEDS: LIDOCAINE 4% (SALONPAS) PATCH TOP SCH (10:15)
[2018-12-28] MEDS: FENTANYL PATCH REMOVAL TP SCH (10:25)
[2018-12-28 10:27] LABS: BASOPHILS % (AUTO) 0 % (0-10); EOSINOPHILS % (AUTO) 0 % (0-10); HEMATOCRIT 35 % (35-52); HEMOGLOBIN 11.4 G/DL (11.5-16.0); LYMPHOCYTES # (AUTO) 0.5 X 10^3 (1.0-4.0); LYMPHOCYTES % (AUTO) 13 % (12-44); MEAN CORPUSCULAR HEMOGLOBIN 30 PG (25-34); MEAN CORPUSCULAR HGB CONC 33 G/DL (32-36); MEAN CORPUSCULAR VOLUME 92 FL (80-99); MEAN PLATELET VOLUME 9.4 FL (7.4-10.4); MONOCYTES # (AUTO) 0.4 X 10^3 (0.0-1.0); MONOCYTES % (AUTO) 10 % (0-12); NEUTROPHILS # (AUTO) 2.9 X 10^3 (1.8-7.8); NEUTROPHILS % (AUTO) 77 % (42-75); PLATELET COUNT 168 10^3/uL (130-400); RED CELL DISTRIBUTION WIDTH 14.9 % (10.0-14.5); WHITE BLOOD COUNT 3.8 10^3/uL (4.3-11.0)
[2018-12-28] MEDS ORDERED: risperiDONE 0.25 MG (RisperDAL) TAB PO NR (10:27)
--- NOTE | 2018-12-28 10:34 | PM&R Progress Note ---
Subjective HPI/CC On Admission Date Seen by Provider: Dec 28, 2018 Time Seen by Provider: 09:45 CC: Sacral fracture in need of IRF prior to going home to live alone HPI: This is an 88yoWF clinic patient of [facility] in [place], [place] who also sees Nephrology [facility] Cardiology [facility] who presents to IRF due to sacral fracture in need of intensive rehab prior to returning home to live alone independently. Her PLOF was independent and family is involved in her care. She fell on 12/12/18 at home and did not feel like she hurt herself until she began having left leg and left pelvis pain 3 days later and reported to the ER which dx the sacral fracture and was given pain meds and sent home. Patient presented to Dr Kent's office yesterday and was assessed to not require surgery but due to pain and unable to go back home due to debility she was admitted for observation to [facility] and consulted IRF at [facility]. Currently she just took a shower and is feeling much better. Patient has not had a BM for 2 days. Patient does have bladder stress incontinence. I have reviewed her home meds and restarted all of them. 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 She had 2 sons, 1 is 6 yrs ago from a non-purposeful narcotic OD. She will return home at the completion of IRF. Subjective/Events-last exam Major changes status due to delirium Oversedation required removal of fentanyl patch yesterday and it was started a very low dose and just gradually increased so that patch may not be an option Will require 15/7 days in order to see if delirium clears and we are able to salvage the inpatient rehabilitation facility hospital course If she fails rehabilitation will need to go to retirement which would be a dismal prognosis for the patient that she likely will not get out of bed and in a pneumonia will set in and she will ultimately decline in function dramatically and rapidly Patient repeating herself over and over Check labs and all within normal limits No fever and vitals remained stable Risperdal low dose given twice daily to help clear delirium Very poor prognosis overall if delirium does not clear so will help support the patient and hopefully delirium will clear in that may result in improved pain control Very difficult situation given the advanced age and severe pain and severe delirium from medications Review of Systems Musculoskeletal: back pain Neurological: Confusion Objective Exam Vital Signs Vital Signs Date Time Temp Pulse Resp B/P (MAP) Pulse Ox O2 Delivery O2 Flow Rate FiO2 12/28/18 09:00 Room Air 12/28/18 02:09 97.2 60 20 121/82 (95) 98 Capillary Refill : Less Than 3 Seconds General Appearance: No Apparent Distress, WD/WN, Chronically ill, Obese HEENT: PERRL/EOMI, Normal ENT Inspection, Pharynx Normal, Moist Mucous Membranes Neck: Full Range of Motion, Normal Inspection, Non Tender, Supple Respiratory: Chest Non Tender, Lungs Clear, Normal Breath Sounds, No Accessory Muscle Use, No Respiratory Distress Cardiovascular: Regular Rate, Rhythm, No Edema, No Gallop, No JVD, No Murmur Gastrointestinal: Normal Bowel Sounds, No Organomegaly, No Pulsatile Mass, Non Tender, Soft Back: Normal Inspection, No CVA Tenderness, Decreased Range of Motion Extremity: Normal Capillary Refill, Normal Inspection, Normal Range of Motion, Non Tender, No Calf Tenderness, No Pedal Edema Neurologic/Psychiatric: Alert, No Motor/Sensory Deficits, Normal Mood/Affect, Disoriented, Motor Weakness (weakness 4/5 all extremities) Skin: Normal Color, Warm/Dry Lymphatic: No Adenopathy Results/Procedures Lab Laboratory Tests 12/28/18 10:20 Patient resulted labs reviewed. FIM Transfers Therapy Code Descriptions/Definitions Functional [place] Measure: 0=Not Assessed/NA 4=Minimal Assistance 1=Total Assistance 5=Supervision or Setup 2=Maximal Assistance 6=Modified [place] 3=Moderate Assistance 7=Complete [place] Therapy Quality Codes: 6 Independent with activity with or without an assistive device 5 Patient requires set up or clean up by helper. Patient completes activity by themselves 4 Supervision or touching assist (CGA). [place] provide cues , steadying assist 3 The helper provides less than half the effort to complete the activity 2 The helper provides more than half the effort to complete the activity 1 Dependent. The helper does all the effort to complete an activity 7 Patient refused to complete or attempt activity 9 The patient did not perform the activity before the current illness or injury 88 Not attempted due to Medical conditions or safety concerns Mental Status/Objective Comprehension: 7 Expression: 7 Social Interaction: 7 Problem Solvin Memory: 6 ADL-Treatment Groomin Bathin Shower/Bathe Self (QC): 3 Upper Extremity Dressin Upper Body Dressing (QC): 5 Lower Extremity Dressin Lower Body Dressing (QC): 3 On/Off Footwear (QC): 3 Toiletin (Per PT report) Toilet/Commode Transfer: 4 (Per PT report) Toilet Transfer (QC): 3 Shower: 4 Assessment/Plan Assessment and Plan Assess & Plan/Chief Complaint Assessment/Plan: (1) Sacral fracture, closed- no surgical repair option (2) Debility- needs IRF to return to OF of independent, Lovenox for immobile state and DVT PPx (3) Hypertension- home meds and monitor closely (4) Hyperlipidemia- home meds (5) Renal insufficiency- monitor creatinine closely and checked labs (6) Anemia- monitor hgb (7) RLS (restless legs syndrome)- home meds (8) Fall-PT/OT to educate on safety and fall risk (9) Allergic rhinitis- on Singulair (10) Constipation- start meds that she takes at home and now resolved 12/24/18 (11) Sacral pain- add Ultram and Hydrocodone monitor for delirium but added Fentanyl patch 12mcg on 12/23/18 and increased to 25mcg on 12/26/18 (12) Incontinence (13) UTI- placed on Amoxil then changed to Augmentin when UCx completed and consulted Dr Aguilar (14) acute and severe delirium Plan: Decreased intensity for inpatient rehabilitation to 25/03 Hold fentanyl patch Hold baclofen Low dose Risperdal to help clear delirium Supportive care line labs reviewed Very complex case (1) Delirium (2) Sacral fracture, closed (3) Anemia (4) Hyperlipidemia (5) Renal insufficiency (6) Allergic rhinitis (7) Debility (8) Hypertension (9) Fall (10) RLS (restless legs syndrome) (11) Constipation (12) Sacral pain (13) Incontinence (14) DVT prophylaxis (15) Neurogenic bladder (16) UTI (urinary tract infection) MIKE BRAMBILA DO Dec 28, 2018 10:34
--- NOTE | 2018-12-28 10:42 | NUR ---
Discussed pts condition with Dr Christopher. stated she thought the fentanyl increase was too much. Cont to hold lyrica, fentanyl and baclofen. Tyle given for pain ok'd by Dr Christopher also. Cont on a/b for UTI without adverse effects. Finished with OT at present time and up in chair x 2 staff assist. Call light in reach. Inc of urine with good alcon-care given after each. Repos q 2 hrs for skin protection and comfort. Wears brief. Dr Aguilar here with no new orders received. See Dr Brady notes. Will cont to monitor.
[2018-12-28 10:44] LABS: ALBUMIN 3.3 GM/DL (3.2-4.5); BILIRUBIN,TOTAL 0.8 MG/DL (0.1-1.0); CALCIUM 9.1 MG/DL (8.5-10.1); CREATININE SERUM 1.04 MG/DL (0.60-1.30); TOTAL PROTEIN 5.6 GM/DL (6.4-8.2)
[2018-12-28] MEDS: KRILL OIL 350 MG PO SCH (12:09)
[2018-12-28] MEDS: FENOFIBRATE 160 MG TABLET PO SCH (12:09)
[2018-12-28] MEDS: ATENOLOL 50 MG (TENORMIN) TAB PO SCH ×2 (12:10→20:18)
--- NOTE | 2018-12-28 12:52 | Physical Therapy Daily Note ---
PT Daily Note-Current Subjective Pt. continues to chant and perseverate on a few words and phrases, "help me, help me, help me", " Inga , Inga, Inga" "I hurt , I hurt, I hurt" Does not answer questions appropriately Appearance eyes closed for good part of time, moans appears in some distress but cannot answer specifics Mental Status Patient Orientation: Confused Transfers Therapy Code Descriptions/Definitions Functional [place] Measure: 0=Not Assessed/NA 4=Minimal Assistance 1=Total Assistance 5=Supervision or Setup 2=Maximal Assistance 6=Modified [place] 3=Moderate Assistance 7=Complete [place] Therapy Quality Codes: 6 Independent with activity with or without an assistive device 5 Patient requires set up or clean up by helper. Patient completes activity by themselves 4 Supervision or touching assist (CGA). [place] provide cues , steadying assist 3 The helper provides less than half the effort to complete the activity 2 The helper provides more than half the effort to complete the activity 1 Dependent. The helper does all the effort to complete an activity 7 Patient refused to complete or attempt activity 9 The patient did not perform the activity before the current illness or injury 88 Not attempted due to Medical conditions or safety concerns rolling max assist left and right Weight Bearing Right Lower Extremity: Right Weight Bearing/Tolerated Left Lower Extremity: Left Weight Bearing/Tolerated Exercises Supine Ex: Ankle pumps, Rolling, Lower trunk rotation, Short Arc Quads, Scooting, Straight leg raise, Hip abd/add Supine Reps: 12 all passive ROM Assessment Current Status: Regressing seldom quiet, repeating meaningless words or phrases PT Short Term Goals Short Term Goals Time Frame: Dec 28, 2018 Gait (FIM): 4 PT Skilled Nursing Goals Side Splitter Goals PT Skilled Nursing Goals Time Frame: January 09, 2019 Transfers (B,C,W/C) (FIM): 6 Sit to Lying (QC): 6 Lying-Sitting on Side/Bed(QC): 6 Sit to Stand (QC): 6 Rollin Roll Left to Right (QC): 6 Chair/Itv-tn-Wuhlv Xfer(QC): 6 Car Transfer (QC): 6 Does the Patient Walk: Yes Gait (FIM): 6 Gait distance (FIM): 3=150 ft Walk 10 feet (QC): 6 Walk 10ft-Uneven Surface(QC): 6 Walk 50ft with 2 Turns (QC): 6 Walk 150 ft (QC): 6 Gait Assistive Device: FWW Does the Pt use WC or Scooter?: No Stairs (FIM): 5 # of Steps: 4 1 Step (curb) (QC): 6 4 Steps (QC): 6 12 Steps (QC): 10 Picking up an Object (QC): 10 PT Plan Treatment/Plan Treatment Plan: Continue Plan of Care Treatment Plan: Bed Mobility, Education, Functional Activity Melissa, Functional Strength, Group Therapy, Gait, Safety, Therapeutic Exercise, Transfers Treatment Duration: January 09, 2019 Frequency: At least 5 of 7 days/Wk (IRF) Estimated Hrs Per Day: 1.5 hours per day Patient and/or Family Agrees t: Yes Time/GCodes Time In: 1230 Time Out: 1300 Total Billed Treatment Time: 30 Total Billed Treatment 1,EX20m,FA10m G Codes Necessary: JUSTIN Mcclain FINANCIAL SPECIALIST Dec 28, 2018 12:52
--- NOTE | 2018-12-28 13:45 | Occupational Ther Daily Note ---
OT Current Status-Daily Note Subjective Pt in bed, repeating "I'm sick, I'm sick..." and "I'm sorry, I'm sorry." Pt stops briefly when spoken to, but then continues repeating herself. Physician was present assessing pt. RN reports doctor wants pt to get up. Mental Status/Objective Patient Orientation: Confused Therapy Code Descriptions/Definitions Functional [place] Measure: 0=Not Assessed/NA 4=Minimal Assistance 1=Total Assistance 5=Supervision or Setup 2=Maximal Assistance 6=Modified Not[place] 3=Moderate Assistance 7=Complete Not[place] ADL-Treatment Pt in bed. When given a washcloth pt looks at it, but does not initiate washing face. Pt requires hand over hand assist to wash face. Pt holds comb and brings toward hair, but unable to complete task without max assist. Pt easily distracted and requires constant cueing to participate. Increased time for task. Pt does not initiate supine to sit with multiple cues, requires assist x2 for supine to sit. Pt c/o increased pain with sitting. Pt sit to stand with assist x2 for safety. Transfer to chair with mod assist x2 and skilled cues for task completion. Upon sitting pt does attempt to scoot back in chair, but requires assist to complete. Pt reports pain and requires assist to reposition. Pt requires cues to participate and attend to tasks during session. Pt sitting in chair with needs met after session. RN notified. Therapy Code Descriptions/Definitions Functional [place] Measure: 0=Not Assessed/NA 4=Minimal Assistance 1=Total Assistance 5=Supervision or Setup 2=Maximal Assistance 6=Modified Noti 3=Moderate Assistance 7=Complete Not[place] Therapy Quality Codes: 6 Independent with activity with or without an assistive device 5 Patient requires set up or clean up by helper. Patient completes activity by themselves 4 Supervision or touching assist (CGA). [place] provide cues , steadying assist 3 The helper provides less than half the effort to complete the activity 2 The helper provides more than half the effort to complete the activity 1 Dependent. The helper does all the effort to complete an activity 7 Patient refused to complete or attempt activity 9 The patient did not perform the activity before the current illness or injury 88 Not attempted due to Medical conditions or safety concerns Grooming (FIM): 2 OT Short Term Goals Short Term Goals Time Frame: Dec 28, 2018 Bathing(FIM): 4 Upper Body Dressing(FIM): 5 Lower Body Dressing(FIM): 4 Toileting(FIM): 4 Toilet/Commode Transfer(FIM): 5 Comprehension(FIM): 4 (CGA) Additional Short Term Goals: 1-Demonstrate ADL Tasks, 2-Verbalize Understanding , 3-ImproveStrength/Melissa 1=Demonstrate adherence to instructed precautions during ADL tasks. 2=Patient will verbalize/demonstrate understanding of assistive devices/ modifications for ADL. 3=Patient will improve strength/tolerance for activity to enable patient to perform ADL's. OT Pasta Press Operator Goals Mcfp Goals Time Frame: January 11, 2019 Eating (FIM): 7 Eating (QC): 6 Groomin Oral Hygiene (QC): 6 Bathing(FIM): 5 Shower/Bathe Self (QC): 5 Upper Body Dressing(FIM): 5 Upper Body Dressing (QC): 6 Lower Body Dressing(FIM): 5 Lower Body Dressing (QC): 6 On/Off Footwear (QC): 6 Toileting(FIM): 6 Toileting Hygiene (QC): 6 Toilet/Commode Transfer(FIM): 6 Toilet/Commode Transfer (QC): 6 Shower Transfer(FIM): 5 Comprehension(FIM): 7 Expression (FIM): 7 Social Interaction(FIM): 7 Problem Solving(FIM): 7 Memory(FIM): 7 Additional Goals: 1-Demonstrate ADL Tasks, 2-Verbalize Understanding, 3- ImproveStrength/Melissa 1=Demonstrate adherence to instructed precautions during ADL tasks. 2=Patient will verbalize/demonstrate understanding of assistive devices/ modifications for ADL. 3=Patient will improve strength/tolerance for activity to enable patient to perform ADL's. OT Education/Plan Discharge Recommendations Plan/Recommendations: Continue POC Treatment Plan/Plan of Care Patient would benefit from OT for education, treatment and training to promote independence in ADL's, mobility, safety and/or upper extremity function for ADL' s. Plan of Care: ADL Retraining, Functional Mobility Treatment Duration: January 11, 2019 Frequency: At least 5 of 7 days/Wk (IRF) Estimated Hrs Per Day: 1.5 hours per day Rehab Potential: Good Time/GCodes Start Time: 10:00 Stop Time: 10:40 Total Time Billed (hr/min): 40 Billed Treatment Time 1 visit, ADL(15minutes), FAx2(25minutes) ALPHONSE DUNHAM OT Dec 28, 2018 13:45
--- NOTE | 2018-12-28 13:55 | Occupational Ther Daily Note ---
OT Current Status-Daily Note Subjective Pt in bed, confused. Constantly repeating one or two word phrases. Mental Status/Objective Therapy Code Descriptions/Definitions Functional [place] Measure: 0=Not Assessed/NA 4=Minimal Assistance 1=Total Assistance 5=Supervision or Setup 2=Maximal Assistance 6=Modified [place] 3=Moderate Assistance 7=Complete [place] ADL-Treatment Therapy Code Descriptions/Definitions Functional [place] Measure: 0=Not Assessed/NA 4=Minimal Assistance 1=Total Assistance 5=Supervision or Setup 2=Maximal Assistance 6=Modified [place] 3=Moderate Assistance 7=Complete [place] Therapy Quality Codes: 6 Independent with activity with or without an assistive device 5 Patient requires set up or clean up by helper. Patient completes activity by themselves 4 Supervision or touching assist (CGA). [place] provide cues , steadying assist 3 The helper provides less than half the effort to complete the activity 2 The helper provides more than half the effort to complete the activity 1 Dependent. The helper does all the effort to complete an activity 7 Patient refused to complete or attempt activity 9 The patient did not perform the activity before the current illness or injury 88 Not attempted due to Medical conditions or safety concerns Other Treatment Pt participated in bilateral UE AAROM exercises x10 reps at all joints. Pt requires constant verbal and tactile cueing. Pt has poor attention to task and stops after one or two reps, requiring max cues to continue exercises. Much increased time required for exercises. Pt completed bilateral hand engineering scientist exercises with therapy foam with max verbal cues for completion. Pt required assist to reposition in bed. Resting in bed with needs met after session. OT Short Term Goals Short Term Goals Time Frame: Dec 28, 2018 Bathing(FIM): 4 Upper Body Dressing(FIM): 5 Lower Body Dressing(FIM): 4 Toileting(FIM): 4 Toilet/Commode Transfer(FIM): 5 Comprehension(FIM): 4 (CGA) Additional Short Term Goals: 1-Demonstrate ADL Tasks, 2-Verbalize Understanding , 3-ImproveStrength/Melissa 1=Demonstrate adherence to instructed precautions during ADL tasks. 2=Patient will verbalize/demonstrate understanding of assistive devices/ modifications for ADL. 3=Patient will improve strength/tolerance for activity to enable patient to perform ADL's. OT Usp Goals Usp Goals Time Frame: January 11, 2019 Eating (FIM): 7 Eating (QC): 6 Groomin Oral Hygiene (QC): 6 Bathing(FIM): 5 Shower/Bathe Self (QC): 5 Upper Body Dressing(FIM): 5 Upper Body Dressing (QC): 6 Lower Body Dressing(FIM): 5 Lower Body Dressing (QC): 6 On/Off Footwear (QC): 6 Toileting(FIM): 6 Toileting Hygiene (QC): 6 Toilet/Commode Transfer(FIM): 6 Toilet/Commode Transfer (QC): 6 Shower Transfer(FIM): 5 Comprehension(FIM): 7 Expression (FIM): 7 Social Interaction(FIM): 7 Problem Solving(FIM): 7 Memory(FIM): 7 Additional Goals: 1-Demonstrate ADL Tasks, 2-Verbalize Understanding, 3- ImproveStrength/Melissa 1=Demonstrate adherence to instructed precautions during ADL tasks. 2=Patient will verbalize/demonstrate understanding of assistive devices/ modifications for ADL. 3=Patient will improve strength/tolerance for activity to enable patient to perform ADL's. OT Education/Plan Discharge Recommendations Plan/Recommendations: Continue POC Treatment Plan/Plan of Care Patient would benefit from OT for education, treatment and training to promote independence in ADL's, mobility, safety and/or upper extremity function for ADL' s. Plan of Care: ADL Retraining, Functional Mobility Treatment Duration: January 11, 2019 Frequency: At least 5 of 7 days/Wk (IRF) Estimated Hrs Per Day: 1.5 hours per day Rehab Potential: Good Time/GCodes Start Time: 11:30 Stop Time: 12:00 Total Time Billed (hr/min): 30 Billed Treatment Time 1 visit, EXx2(30)minutes) ALPHONSE DUNHAM OT Dec 28, 2018 13:55
--- NOTE | 2018-12-28 14:09 | Occupational Ther Daily Note ---
OT Current Status-Daily Note Subjective Pt lying in bed, eyes open. Pt would answer questions then repeat same word multiple times. Pt would not look at [facility] when answering. Mental Status/Objective Patient Orientation: Person, Confused, Unable to Assess Therapy Code Descriptions/Definitions Functional [place] Measure: 0=Not Assessed/NA 4=Minimal Assistance 1=Total Assistance 5=Supervision or Setup 2=Maximal Assistance 6=Modified [place] 3=Moderate Assistance 7=Complete [place] ADL-Treatment Therapy Code Descriptions/Definitions Functional [place] Measure: 0=Not Assessed/NA 4=Minimal Assistance 1=Total Assistance 5=Supervision or Setup 2=Maximal Assistance 6=Modified [place] 3=Moderate Assistance 7=Complete [place] Therapy Quality Codes: 6 Independent with activity with or without an assistive device 5 Patient requires set up or clean up by helper. Patient completes activity by themselves 4 Supervision or touching assist (CGA). [place] provide cues , steadying assist 3 The helper provides less than half the effort to complete the activity 2 The helper provides more than half the effort to complete the activity 1 Dependent. The helper does all the effort to complete an activity 7 Patient refused to complete or attempt activity 9 The patient did not perform the activity before the current illness or injury 88 Not attempted due to Medical conditions or safety concerns Other Treatment Pt required hand over hand to complete AROM. Pt would stop movement with UE's if tactile cue was gone. Pt continues to demonstrate good AROM with tactile cues. Pt incontinent of bladder. Assist x2 to complete hygiene and change Depend and bedding. Pt will hold onto bedrail to hold self on side. After therapy, pt lying in bed with call light/phone in reach. All needs met in room. OT Short Term Goals Short Term Goals Time Frame: Dec 28, 2018 Bathing(FIM): 4 Upper Body Dressing(FIM): 5 Lower Body Dressing(FIM): 4 Toileting(FIM): 4 Toilet/Commode Transfer(FIM): 5 Comprehension(FIM): 4 (CGA) Additional Short Term Goals: 1-Demonstrate ADL Tasks, 2-Verbalize Understanding , 3-ImproveStrength/Melissa 1=Demonstrate adherence to instructed precautions during ADL tasks. 2=Patient will verbalize/demonstrate understanding of assistive devices/ modifications for ADL. 3=Patient will improve strength/tolerance for activity to enable patient to perform ADL's. OT Plasterer Stucco Goals Plasterer Stucco Goals Time Frame: January 11, 2019 Eating (FIM): 7 Eating (QC): 6 Groomin Oral Hygiene (QC): 6 Bathing(FIM): 5 Shower/Bathe Self (QC): 5 Upper Body Dressing(FIM): 5 Upper Body Dressing (QC): 6 Lower Body Dressing(FIM): 5 Lower Body Dressing (QC): 6 On/Off Footwear (QC): 6 Toileting(FIM): 6 Toileting Hygiene (QC): 6 Toilet/Commode Transfer(FIM): 6 Toilet/Commode Transfer (QC): 6 Shower Transfer(FIM): 5 Comprehension(FIM): 7 Expression (FIM): 7 Social Interaction(FIM): 7 Problem Solving(FIM): 7 Memory(FIM): 7 Additional Goals: 1-Demonstrate ADL Tasks, 2-Verbalize Understanding, 3- ImproveStrength/Melissa 1=Demonstrate adherence to instructed precautions during ADL tasks. 2=Patient will verbalize/demonstrate understanding of assistive devices/ modifications for ADL. 3=Patient will improve strength/tolerance for activity to enable patient to perform ADL's. OT Education/Plan Problem List/Assessment Assessment: Decreased Activ Tolerance, Decreased Safety Aware, Decreased UE Strength, Dependent Transfers, Impaired Cognition, Impaired Self-Care Skills Discharge Recommendations Plan/Recommendations: Continue POC Treatment Plan/Plan of Care Patient would benefit from OT for education, treatment and training to promote independence in ADL's, mobility, safety and/or upper extremity function for ADL' s. Plan of Care: ADL Retraining, Functional Mobility Treatment Duration: January 11, 2019 Frequency: At least 5 of 7 days/Wk (IRF) Estimated Hrs Per Day: 1.5 hours per day Rehab Potential: Good Time/GCodes Start Time: 13:30 Stop Time: 13:55 Total Time Billed (hr/min): 25 Billed Treatment Time 1 visit-EX 1 (22 min) ADL 1 (8 min) CECILIA MOSELEY Dec 28, 2018 14:09
[2018-12-28] MEDS: ENOXAPARIN 40 MG/0.4 ML (LOVENOX) SYR SC SCH (14:10)
[2018-12-28 15:50] VITALS: BP 117/69
--- NOTE | 2018-12-28 16:08 | ST Cognitive Linguistic Eval ---
Speech Evaluation-General Medical Diagnosis Sacral fx Onset Date: Dec 21, 2018 Therapy Diagnosis Therapy Diagnosis: Cognitive-communication Precautions Precautions/Isolations: Fall Prevention, Standard Precautions, Pressure Ulcer Referral Referring Physician: Dr. Christopher Reason for Referral: Evaluation/Treatment Medical History Reviewed History: Yes Social History Current Living Status: Alone (good family support) Speech PLF-Current Status Prior Level of Function Prior to this hospitalization the patient lived at home in [place], [place] alone. She has family close by for assistance when needed. Subjective The patient was pleasant, however noted to be repetitive of phrases within and without context. Language Eval: Auditory Comprehends Simple Yes/No Ques: Mild Indent/Objects Multiple Wat[place]: Mild Ident/Pics in Multiple Watters: Moderate Follows 1-Step Commands: Mild Follows Complex Directions: Moderate Follows General Conversations: Moderate Language Eval: Verbal Language Completes Spontaneous Greeting: Functional Produces Auto, Serial Info: Functional Imitates Simple Words/Phrases: Mild Word Finding: Moderate Requests Basic Needs: Mild States Basic Personal Info: Mild Expresses Complex Ideas: Moderate Objective Cognitive Domain Attention: Mild Memory: Mild Problem Solving: Mild Executive Functions: Moderate Objective Formal/Standardized Tests Jono Cognitive Assessment (MOCA) Results Visuospatial/Executive: 2/5, Namin/3, Memory: Immediate 3/5, Delayed with cues 1/5, Attention: 3/6 Language: 3/3, Abstraction: 0/2, Orientation: 3/6 Oral Motor/Speech Production Repeats phrases over and over even with cuing. Impression The patient is a pleasant 88 year old female who was admitted to the ARU a week ago for a sacral fracture. Initial evaluation was within functional limits, however since that time she has exhibited a decline in cognitive-communication function. She was reassessed today for cognitive function and results indicate multiple areas of decline. The patient would benefit from skilled ST services. Communication/Social Cognition Comprehension: 4 Expression: 4 Social Interaction: 4 Problem Solvin Memory: 3 Speech Patient Assess Expression of Ideas/Wants: Frequently (2) Understanding Verbal Content: Sometimes Understands(2) Brief Interview-Mental Status: Yes Repetition of Three Words: Two (2) Temporal Orientation: Year: Correct (3) Temporal Orientation: Month: No answer (0) Temporal Orientation: Day: Incorrect or No Answer(0) Recall : Wear to say "Sock": Yes,after cueing (1) Recall : Color: No, could not recall (0) Recall : Bed: Yes,after cueing (1) Memory/Recall Ability: Current season, That he or she is in a hsp/hsp unit Speech Short Term Goals Short Term Goals Short Term Goals 1) The patient will complete executive function tasks with 80% or greater with minimal cues. 2) The patient will complete memory tasks with 80% or greater with minimal cues. 3) The patient will demonstrate following simple 2 step directions with 80% or greater with minimal cues. Comprehension: 4 (CGA) Speech Biztalk Architect Goals Nursing Home Goals The patient will improve cognitive function with focus on safety and independence. Comprehension: 7 Expression: 7 Social Interaction: 7 Problem Solvin Memory: 7 Speech-Plan Patient/Family Goals Patient/Family Goals: The patient plans to return home with family assitance post rehab, although this is probably not realistic. Treatment Plan Speech Therapy Treatment Plan: Continue Plan of Care The patient will receive skilled ST for cognitive function to increase safety and independence. Treatment Duration: Jan 04, 2019 Frequency: 5 times per week Estimated Hrs Per Day: .5 hour per day Rehab Potential: Good Barriers to Learning: The patient has had a decline in cognitive function. Pt/Family Agrees to Plan: Yes Safety Risks/Education Teaching Recipient: Patient Teaching Methods: Discussion Response to Teaching: Verbalize Understanding Education Topics Provided: Safety within her room. Time Speech Therapy Time In: 15:15 Speech Therapy Time Out: 15:30 Total Billed Time: 15 Billed Treatment Time 1, [id number] Lawrence Dec 28, 2018 16:08
[2018-12-28] MEDS: TAMSULOSIN 0.4 MG (FLOMAX) CAP PO SCH (17:18)
[2018-12-28] MEDS: risperiDONE 0.25 MG (RisperDAL) TAB PO SCH (20:15)
[2018-12-28] MEDS: MONTELUKAST 10 MG (SINGULAIR) TAB PO SCH (20:15)
[2018-12-28] MEDS: LIDOCAINE PATCH REMOVAL TP SCH (20:18)
[2018-12-29] MEDS: AUGMENTIN 500 MG TAB (AMOXICILLIN/CLAVULANATE) PO SCH ×2 (06:19→17:08)
[2018-12-29] MEDS: [UNRECOGNIZED DRUG - OTHER] PO SCH ×2 (06:19→17:09)
[2018-12-29] MEDS: CALCIUM CARB + VIT D 600 MG (CALCARB + D) TAB PO SCH ×2 (06:21→17:08)
[2018-12-29 06:26] VITALS: BP 146/74
[2018-12-29 08:00] VITALS: BP 163/78
--- NOTE | 2018-12-29 08:00 | NUR ---
PATIENT KNEW HER NAME AND THAT IT WAS DECEMBER. RECOGNIZED THIS NURSE. ABLE TO FEED SELF BREAKFAST WITH SOME ENCOURAGEMENT AND TOOK MEDS WELL. HYPERTENSIVE THIS AM AND BP MEDS GIVEN. STILL CONFUSED, BUT APPARENTLY IMPROVED FROM YESTERDAY.
[2018-12-29] MEDS: SPIRONOLACTONE 25 MG (ALDACTONE) TAB PO SCH (08:25)
[2018-12-29] MEDS: risperiDONE 0.25 MG (RisperDAL) TAB PO SCH ×2 (08:26→20:16)
[2018-12-29] MEDS: ASPIRIN E.C. 81 MG (ECOTRIN) TAB PO SCH ×2 (08:26→20:16)
[2018-12-29] MEDS: PREGABALIN 75 MG (LYRICA) CAP PO SCH ×2 (08:28→20:16)
[2018-12-29] MEDS: VITAMIN D3 1,000 UNITS (CHOLECALCIFEROL) TABLET PO SCH (08:28)
[2018-12-29] MEDS: ATENOLOL 50 MG (TENORMIN) TAB PO SCH ×2 (08:30→20:16)
[2018-12-29] MEDS: amLODIPine 10 MG (NORVASC) TAB PO SCH (08:31)
[2018-12-29] MEDS: lisINopril 20 MG (PRINIVIL) TABLET PO SCH ×2 (08:31→20:16)
[2018-12-29] MEDS: FENOFIBRATE 160 MG TABLET PO SCH (08:34)
[2018-12-29] MEDS: KRILL OIL 350 MG PO SCH (08:34)
[2018-12-29] MEDS: ACETAMINOPHEN 500 MG TAB (TYLENOL) PO PRN ×2 (08:39→17:46)
[2018-12-29] MEDS: SENNA W/DOCUSATE (SENOKOT S) TABLET PO SCH ×2 (08:44→20:13)
[2018-12-29] MEDS: LIDOCAINE 4% (SALONPAS) PATCH TOP SCH (09:53)
--- NOTE | 2018-12-29 09:56 | Physical Therapy Daily Note ---
PT Daily Note-Current Subjective Pt more alert this session. Agrees to try therapy, not sure about sitting or standing due to pain. Mental Status Patient Orientation: Person, Place, Situation Transfers Therapy Code Descriptions/Definitions Functional [place] Measure: 0=Not Assessed/NA 4=Minimal Assistance 1=Total Assistance 5=Supervision or Setup 2=Maximal Assistance 6=Modified [place] 3=Moderate Assistance 7=Complete [place] Therapy Quality Codes: 6 Independent with activity with or without an assistive device 5 Patient requires set up or clean up by helper. Patient completes activity by themselves 4 Supervision or touching assist (CGA). [place] provide cues , steadying assist 3 The helper provides less than half the effort to complete the activity 2 The helper provides more than half the effort to complete the activity 1 Dependent. The helper does all the effort to complete an activity 7 Patient refused to complete or attempt activity 9 The patient did not perform the activity before the current illness or injury 88 Not attempted due to Medical conditions or safety concerns Transfers (B, C, W/C) (FIM): 2 Scootin Supine to/from Sit: 3 Bed to/from Chair: 4 Pt needed assist to come to sitting in order to avoid twisting at the trunk. Twisting generated (L) side hip and back pain. Utilizing 2 people her trunk remained straight and she had no c/o pain. She had physical strength to come to standing without physical assist. Managed walker for short walk and 90 degree turn with Min A. Weight Bearing Right Lower Extremity: Right Weight Bearing/Tolerated Left Lower Extremity: Left Weight Bearing/Tolerated Gait Training Does the Patient Walk?: Yes Distance (FIM): 1=up to 49 ft Distance: 10 Gait Level of Assist: 4 Gait Persons Needed: 1 Gait Assistive Device: FWW 5-10 ft in room with FWW. Stable with demonstration of stable legs and management of walker. Exercises Supine Ex: Ankle pumps, Lower trunk rotation, Heel Slides, Knee to chest, Short Arc Quads, Resisted flex/ext, Straight leg raise, Hip abd/add Supine Reps: 10 active assist for all exercises; manual resist for hip extension Assessment Pt showed improved cognition this session. Put forth good exercise with bed exercise, transfers, and gait. Pt able to tolerate sitting in bedside chair. PT Short Term Goals Short Term Goals Time Frame: Dec 28, 2018 Gait (FIM): 4 PT Acid Correction Hand Goals Custodial Goals PT Custodial Goals Time Frame: January 09, 2019 Transfers (B,C,W/C) (FIM): 6 Sit to Lying (QC): 6 Lying-Sitting on Side/Bed(QC): 6 Sit to Stand (QC): 6 Rollin Roll Left to Right (QC): 6 Chair/[id number] Xfer(QC): 6 Car Transfer (QC): 6 Does the Patient Walk: Yes Gait (FIM): 6 Gait distance (FIM): 3=150 ft Walk 10 feet (QC): 6 Walk 10ft-Uneven Surface(QC): 6 Walk 50ft with 2 Turns (QC): 6 Walk 150 ft (QC): 6 Gait Assistive Device: FWW Does the Pt use WC or Scooter?: No Stairs (FIM): 5 # of Steps: 4 1 Step (curb) (QC): 6 4 Steps (QC): 6 12 Steps (QC): 10 Picking up an Object (QC): 10 PT Plan Treatment/Plan Treatment Plan: Continue Plan of Care Treatment Plan: Bed Mobility, Education, Functional Activity Melissa, Functional Strength, Group Therapy, Gait, Safety, Therapeutic Exercise, Transfers Treatment Duration: January 09, 2019 Frequency: At least 5 of 7 days/Wk (IRF) Estimated Hrs Per Day: 1.5 hours per day Patient and/or Family Agrees t: Yes Time/GCodes Time In: 855 Time Out: 935 Total Billed Treatment Time: 40 Total Billed Treatment visit, FA x 25 min, [id number] min RAMANA ZHANG PT Dec 29, 2018 09:56
--- NOTE | 2018-12-29 11:30 | NUR ---
DR. BRAMBILA INFORMED OF PRODUCTIVE COUGH OF YELLOW SPUTUM AND STARTED ON I.S. INCONTINENT OF STOOL X 2.
--- NOTE | 2018-12-29 11:48 | PM&R Progress Note ---
Subjective HPI/CC On Admission Date Seen by Provider: Dec 29, 2018 Time Seen by Provider: 11:00 CC: Sacral fracture in need of IRF prior to going home to live alone HPI: This is an 88yoWF clinic patient of [facility] in [place], [place] who also sees Nephrology at [place] and Cardiology at [place] who presents to IRF due to sacral fracture in need of intensive rehab prior to returning home to live alone independently. Her PLOF was independent and family is involved in her care. She fell on 12/12/18 at home and did not feel like she hurt herself until she began having left leg and left pelvis pain 3 days later and reported to the ER which dx the sacral fracture and was given pain meds and sent home. Patient presented to Dr Kent's office yesterday and was assessed to not require surgery but due to pain and unable to go back home due to debility she was admitted for observation to [facility] and consulted IRF at [facility]. Currently she just took a shower and is feeling much better. Patient has not had a BM for 2 days. Patient does have bladder stress incontinence. I have reviewed her home meds and restarted all of them. 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 She had 2 sons, 1 is 6 yrs ago from a non-purposeful narcotic OD. She will return home at the completion of IRF. Subjective/Events-last exam Major changes status due to delirium now has mostly resolved Updated family at the bedside and they agree that she has failed this IRF Will require 15/7 days in order to see if delirium clears and we are able to salvage the inpatient rehabilitation facility hospital course but it appears that she will need to go to [facility] for skilled care Unsure of prognosis overall with how her clinical status is currently since she is advanced age and the confusion usually precludes rapid decline Check labs and all within normal limits yesterday No fever and vitals remained stable Risperdal low dose given twice daily to help clear delirium and that seems to be helpful Very poor prognosis overall if she indeed does fail IRF Uses only Tylenol and that has helped clear up the delirium in itself and it does not seem to have caused and increase in pain Review of Systems General: Fatigue Musculoskeletal: back pain, leg pain Neurological: Confusion Objective Exam Vital Signs Vital Signs Date Time Temp Pulse Resp B/P (MAP) Pulse Ox O2 Delivery O2 Flow Rate FiO2 12/29/18 15:33 Room Air 12/29/18 06:26 97.8 62 18 146/74 (98) 95 Capillary Refill : Less Than 3 Seconds General Appearance: No Apparent Distress, WD/WN, Chronically ill, Obese HEENT: PERRL/EOMI, Normal ENT Inspection, Pharynx Normal, Moist Mucous Membranes Neck: Full Range of Motion, Normal Inspection, Non Tender, Supple Respiratory: Chest Non Tender, Lungs Clear, Normal Breath Sounds, No Accessory Muscle Use, No Respiratory Distress Cardiovascular: Regular Rate, Rhythm, No Edema, No Gallop, No JVD, No Murmur Gastrointestinal: Normal Bowel Sounds, No Organomegaly, No Pulsatile Mass, Non Tender, Soft Back: Normal Inspection, No CVA Tenderness, Decreased Range of Motion Extremity: Normal Capillary Refill, Normal Inspection, Normal Range of Motion, Non Tender, No Calf Tenderness, No Pedal Edema Neurologic/Psychiatric: Alert, Oriented x3, No Motor/Sensory Deficits, Normal Mood/Affect, Motor Weakness (weakness 4/5 all extremities) Skin: Normal Color, Warm/Dry Lymphatic: No Adenopathy Results/Procedures Lab Patient resulted labs reviewed. FIM Transfers Therapy Code Descriptions/Definitions Functional [place] Measure: 0=Not Assessed/NA 4=Minimal Assistance 1=Total Assistance 5=Supervision or Setup 2=Maximal Assistance 6=Modified [place] 3=Moderate Assistance 7=Complete [place] Therapy Quality Codes: 6 Independent with activity with or without an assistive device 5 Patient requires set up or clean up by helper. Patient completes activity by themselves 4 Supervision or touching assist (CGA). [place] provide cues , steadying assist 3 The helper provides less than half the effort to complete the activity 2 The helper provides more than half the effort to complete the activity 1 Dependent. The helper does all the effort to complete an activity 7 Patient refused to complete or attempt activity 9 The patient did not perform the activity before the current illness or injury 88 Not attempted due to Medical conditions or safety concerns Mental Status/Objective Comprehension: 4 Expression: 4 Social Interaction: 4 Problem Solvin Memory: 3 ADL-Treatment Groomin Bathin Shower/Bathe Self (QC): 3 Upper Extremity Dressin Upper Body Dressing (QC): 5 Lower Extremity Dressin Lower Body Dressing (QC): 3 On/Off Footwear (QC): 3 Toiletin (Per PT report) Toilet/Commode Transfer: 4 (Per PT report) Toilet Transfer (QC): 3 Shower: 4 Assessment/Plan Assessment and Plan Assess & Plan/Chief Complaint Assessment/Plan: (1) Sacral fracture, closed- no surgical repair option (2) Debility- needs IRF to return to OF of independent, Lovenox for immobile state and DVT PPx (3) Hypertension- home meds and monitor closely (4) Hyperlipidemia- home meds (5) Renal insufficiency- monitor creatinine closely and checked labs (6) Anemia- monitor hgb (7) RLS (restless legs syndrome)- home meds (8) Fall-PT/OT to educate on safety and fall risk (9) Allergic rhinitis- on Singulair (10) Constipation- start meds that she takes at home and now resolved 12/24/18 (11) Sacral pain- add Ultram and Hydrocodone monitor for delirium but added Fentanyl patch 12mcg on 12/23/18 and increased to 25mcg on 12/26/18 (12) Incontinence (13) UTI- placed on Amoxil then changed to Augmentin when UCx completed and consulted Dr Aguilar (14) acute and severe delirium Plan: Decreased intensity for inpatient rehabilitation to 25/03 but very well may fail IRF and need [facility] Monday for DC Hold fentanyl patch and us only Tylenol Hold baclofen due to oversedation Low dose Risperdal to help clear delirium and will maintain that dosing now Supportive care Very complex case (1) Delirium (2) Sacral fracture, closed (3) Anemia (4) Hyperlipidemia (5) Renal insufficiency (6) Allergic rhinitis (7) Debility (8) Hypertension (9) Fall (10) RLS (restless legs syndrome) (11) Constipation (12) Sacral pain (13) Incontinence (14) DVT prophylaxis (15) Neurogenic bladder (16) UTI (urinary tract infection) MIKE BRAMBILA DO Dec 29, 2018 11:48
[2018-12-29] MEDS: ENOXAPARIN 40 MG/0.4 ML (LOVENOX) SYR SC SCH (13:28)
[2018-12-29 17:05] VITALS: BP 148/73
[2018-12-29] MEDS: TAMSULOSIN 0.4 MG (FLOMAX) CAP PO SCH (17:09)
--- NOTE | 2018-12-29 18:00 | NUR ---
TOOK A NICE NAP THIS AFTERNOON. REMAINS ALERT AND A LITTLE CONFUSED, BUT IMPROVED.
[2018-12-29] MEDS: MONTELUKAST 10 MG (SINGULAIR) TAB PO SCH (20:16)
[2018-12-29] MEDS: LIDOCAINE PATCH REMOVAL TP SCH (20:18)
[2018-12-30] MEDS: AUGMENTIN 500 MG TAB (AMOXICILLIN/CLAVULANATE) PO SCH ×2 (06:00→16:36)
[2018-12-30] MEDS: CALCIUM CARB + VIT D 600 MG (CALCARB + D) TAB PO SCH ×2 (06:00→16:36)
[2018-12-30] MEDS: [UNRECOGNIZED DRUG - OTHER] PO SCH ×2 (06:00→16:36)
[2018-12-30 06:14] VITALS: BP 105/64
[2018-12-30 08:00] VITALS: BP 135/58
--- NOTE | 2018-12-30 08:00 | NUR ---
ALERT AND ORIENTED X 4 TODAY. PAIN IMPROVED. ORDERED BREAKFAST ON OWN. WAS INCONTINENT OF STOOL.
[2018-12-30] MEDS: VITAMIN D3 1,000 UNITS (CHOLECALCIFEROL) TABLET PO SCH (08:20)
[2018-12-30] MEDS: risperiDONE 0.25 MG (RisperDAL) TAB PO SCH ×2 (08:21→20:25)
[2018-12-30] MEDS: amLODIPine 10 MG (NORVASC) TAB PO SCH (08:22)
[2018-12-30] MEDS: SPIRONOLACTONE 25 MG (ALDACTONE) TAB PO SCH (08:22)
[2018-12-30] MEDS: ASPIRIN E.C. 81 MG (ECOTRIN) TAB PO SCH ×2 (08:22→20:25)
[2018-12-30] MEDS: lisINopril 20 MG (PRINIVIL) TABLET PO SCH ×2 (08:23→20:29)
[2018-12-30] MEDS: LIDOCAINE 4% (SALONPAS) PATCH TOP SCH (08:23)
[2018-12-30] MEDS: PREGABALIN 75 MG (LYRICA) CAP PO SCH ×2 (08:23→20:25)
[2018-12-30] MEDS: FENOFIBRATE 160 MG TABLET PO SCH (08:25)
[2018-12-30] MEDS: SENNA W/DOCUSATE (SENOKOT S) TABLET PO SCH ×2 (08:26→19:25)
[2018-12-30] MEDS: KRILL OIL 350 MG PO SCH (08:26)
[2018-12-30] MEDS: ACETAMINOPHEN 500 MG TAB (TYLENOL) PO PRN ×2 (08:32→16:36)
[2018-12-30 11:00] VITALS: BP 116/70
[2018-12-30] MEDS: ATENOLOL 50 MG (TENORMIN) TAB PO SCH ×2 (11:00→20:29)
--- NOTE | 2018-12-30 11:25 | PM&R Progress Note ---
Subjective HPI/CC On Admission Date Seen by Provider: Dec 30, 2018 Time Seen by Provider: 08:45 CC: Sacral fracture in need of IRF prior to going home to live alone HPI: This is an 88yoWF clinic patient of [facility] in [place], [place] who also sees Nephrology at [place] and Cardiology at [place] who presents to IRF due to sacral fracture in need of intensive rehab prior to returning home to live alone independently. Her PLOF was independent and family is involved in her care. She fell on 12/12/18 at home and did not feel like she hurt herself until she began having left leg and left pelvis pain 3 days later and reported to the ER which dx the sacral fracture and was given pain meds and sent home. Patient presented to Dr Kent's office yesterday and was assessed to not require surgery but due to pain and unable to go back home due to debility she was admitted for observation to [facility] and consulted IRF at [facility]. Currently she just took a shower and is feeling much better. Patient has not had a BM for 2 days. Patient does have bladder stress incontinence. I have reviewed her home meds and restarted all of them. 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 She had 2 sons, 1 is 6 yrs ago from a non-purposeful narcotic OD. She will return home at the completion of IRF. Subjective/Events-last exam Major change in status due to delirium now completely resolved Unsure if she can tolerate IRF and have to go to [place] so will have to await therapy assessment tomorrow Unsure of prognosis overall with how her clinical status is currently since she is advanced age and frail Check labs and all within normal limits Monday No fever and vitals remained stable Risperdal low dose given twice daily to help clear delirium and that seems to be helpful so will maintain that Very poor prognosis overall if she indeed does fail IRF Uses only Tylenol and that has helped clear up the delirium in itself and it does not seem to have caused and increase in pain Incontinent of bowels at times and that is a new issue Review of Systems General: Fatigue Musculoskeletal: back pain, leg pain Objective Exam Vital Signs Vital Signs Date Time Temp Pulse Resp B/P (MAP) Pulse Ox O2 Delivery O2 Flow Rate FiO2 12/30/18 11:00 73 116/70 (85) 12/30/18 09:00 Room Air 12/30/18 06:14 97.0 20 98 Capillary Refill : Less Than 3 Seconds General Appearance: No Apparent Distress, WD/WN, Chronically ill, Obese HEENT: PERRL/EOMI, Normal ENT Inspection, Pharynx Normal, Moist Mucous Membranes Neck: Full Range of Motion, Normal Inspection, Non Tender, Supple Respiratory: Chest Non Tender, Lungs Clear, Normal Breath Sounds, No Accessory Muscle Use, No Respiratory Distress Cardiovascular: Regular Rate, Rhythm, No Edema, No Gallop, No JVD, No Murmur Gastrointestinal: Normal Bowel Sounds, No Organomegaly, No Pulsatile Mass, Non Tender, Soft Back: Normal Inspection, No CVA Tenderness, Decreased Range of Motion Extremity: Normal Capillary Refill, Normal Inspection, Normal Range of Motion, Non Tender, No Calf Tenderness, No Pedal Edema Neurologic/Psychiatric: Alert, Oriented x3, No Motor/Sensory Deficits, Normal Mood/Affect, Motor Weakness (weakness 4/5 all extremities) Skin: Normal Color, Warm/Dry Lymphatic: No Adenopathy Results/Procedures Lab Patient resulted labs reviewed. FIM Transfers Therapy Code Descriptions/Definitions Functional [place] Measure: 0=Not Assessed/NA 4=Minimal Assistance 1=Total Assistance 5=Supervision or Setup 2=Maximal Assistance 6=Modified [place] 3=Moderate Assistance 7=Complete [place] Therapy Quality Codes: 6 Independent with activity with or without an assistive device 5 Patient requires set up or clean up by helper. Patient completes activity by themselves 4 Supervision or touching assist (CGA). [place] provide cues , steadying assist 3 The helper provides less than half the effort to complete the activity 2 The helper provides more than half the effort to complete the activity 1 Dependent. The helper does all the effort to complete an activity 7 Patient refused to complete or attempt activity 9 The patient did not perform the activity before the current illness or injury 88 Not attempted due to Medical conditions or safety concerns Mental Status/Objective Comprehension: 4 Expression: 4 Social Interaction: 4 Problem Solvin Memory: 3 ADL-Treatment Groomin Bathin Shower/Bathe Self (QC): 3 Upper Extremity Dressin Upper Body Dressing (QC): 5 Lower Extremity Dressin Lower Body Dressing (QC): 3 On/Off Footwear (QC): 3 Toiletin (Per PT report) Toilet/Commode Transfer: 4 (Per PT report) Toilet Transfer (QC): 3 Shower: 4 Assessment/Plan Assessment and Plan Assess & Plan/Chief Complaint Assessment/Plan: (1) Sacral fracture, closed- no surgical repair option (2) Debility- needs IRF to return to PLOF of independent, Lovenox for immobile state and DVT PPx (3) Hypertension- home meds and monitor closely (4) Hyperlipidemia- home meds (5) Renal insufficiency- monitor creatinine closely and checked labs (6) Anemia- monitor hgb (7) RLS (restless legs syndrome)- home meds (8) Fall-PT/OT to educate on safety and fall risk (9) Allergic rhinitis- on Singulair (10) Constipation- start meds that she takes at home and now resolved 12/24/18 (11) Sacral pain- add Ultram and Hydrocodone monitor for delirium but added Fentanyl patch 12mcg on 12/23/18 and increased to 25mcg on 12/26/18 (12) Incontinence (13) UTI- placed on Amoxil then changed to Augmentin when UCx completed and consulted Dr Aguilar (14) acute and severe delirium-resolved (15) Fecal incontinence? Plan: Decreased intensity for inpatient rehabilitation to 25/03 but very well may fail IRF and need residential Monday for DC Hold fentanyl patch and use only Tylenol Hold baclofen due to oversedation Low dose Risperdal to help clear delirium and will maintain that dosing now Supportive care Very complex case Incontinence of bowel is a new issue (1) Delirium (2) Sacral fracture, closed (3) Anemia (4) Hyperlipidemia (5) Renal insufficiency (6) Allergic rhinitis (7) Debility (8) Hypertension (9) Fall (10) RLS (restless legs syndrome) (11) Constipation (12) Sacral pain (13) Incontinence (14) DVT prophylaxis (15) Neurogenic bladder (16) UTI (urinary tract infection) MIKE BRAMBILA DO Dec 30, 2018 11:25
[2018-12-30] MEDS: ENOXAPARIN 40 MG/0.4 ML (LOVENOX) SYR SC SCH (13:15)
--- NOTE | 2018-12-30 15:00 | NUR ---
FAMILY VISITED. PATIENT UP IN CHAIR FOR SEVERAL HOURS. CHEERFUL. CONTINUES TO ONLY BE ABLE TO VOID WHEN LYING DOWN.
[2018-12-30] MEDS: TAMSULOSIN 0.4 MG (FLOMAX) CAP PO SCH (17:31)
[2018-12-30 17:58] VITALS: BP 129/77
[2018-12-30] MEDS: MONTELUKAST 10 MG (SINGULAIR) TAB PO SCH (20:25)
[2018-12-30 20:26] VITALS: BP 98/62
[2018-12-30] MEDS: LIDOCAINE PATCH REMOVAL TP SCH (20:29)
[2018-12-31 05:05] VITALS: BP 98/62
[2018-12-31] MEDS: [UNRECOGNIZED DRUG - OTHER] PO SCH ×2 (06:06→17:46)
[2018-12-31] MEDS: CALCIUM CARB + VIT D 600 MG (CALCARB + D) TAB PO SCH ×2 (06:06→17:41)
[2018-12-31] MEDS: AUGMENTIN 500 MG TAB (AMOXICILLIN/CLAVULANATE) PO SCH ×2 (06:06→17:41)
[2018-12-31] MEDS: ACETAMINOPHEN 500 MG TAB (TYLENOL) PO PRN ×3 (07:00→21:54)
--- NOTE | 2018-12-31 08:12 | PM&R Progress Note ---
Subjective HPI/CC On Admission Date Seen by Provider: Dec 31, 2018 Time Seen by Provider: 08:10 CC: Sacral fracture in need of IRF prior to going home to live alone HPI: This is an 88yoWF clinic patient of [facility] in [place], [place] who also sees Nephrology at [place] and Cardiology at [place] who presents to IRF due to sacral fracture in need of intensive rehab prior to returning home to live alone independently. Her PLOF was independent and family is involved in her care. She fell on 12/12/18 at home and did not feel like she hurt herself until she began having left leg and left pelvis pain 3 days later and reported to the ER which dx the sacral fracture and was given pain meds and sent home. Patient presented to Dr Kent's office yesterday and was assessed to not require surgery but due to pain and unable to go back home due to debility she was admitted for observation to [facility] and consulted IRF at [facility]. Currently she just took a shower and is feeling much better. Patient has not had a BM for 2 days. Patient does have bladder stress incontinence. I have reviewed her home meds and restarted all of them. 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 She had 2 sons, 1 is 6 yrs ago from a non-purposeful narcotic OD. She will return home at the completion of IRF. Subjective/Events-last exam Pt very much improved today. Family does not feel like they can take care of her at home so will forge ahead and discharge to halfway facility tomorrow. PT and OT felt like she did a really good job and has no pain but overall is not going to be able to maintain this enough to be out of a skilled facility. Urinary issue requires her to urinate in a depends while she is laying down. Bowel incontinence at times also, precluding anything but a long and slow recovery. Likely will become a permanent senior care placement. Review of Systems General: Fatigue Genitourinary: Incontinence, Retention Objective Exam Vital Signs Vital Signs Date Time Temp Pulse Resp B/P (MAP) Pulse Ox O2 Delivery O2 Flow Rate FiO2 12/31/18 15:28 97.8 61 16 93/59 (70) 95 Room Air Capillary Refill : Less Than 3 Seconds General Appearance: No Apparent Distress, WD/WN, Chronically ill, Obese HEENT: PERRL/EOMI, Normal ENT Inspection, Pharynx Normal, Moist Mucous Membranes Neck: Full Range of Motion, Normal Inspection, Non Tender, Supple Respiratory: Chest Non Tender, Lungs Clear, Normal Breath Sounds, No Accessory Muscle Use, No Respiratory Distress Cardiovascular: Regular Rate, Rhythm, No Edema, No Gallop, No JVD, No Murmur Gastrointestinal: Normal Bowel Sounds, No Organomegaly, No Pulsatile Mass, Non Tender, Soft Back: Normal Inspection, No CVA Tenderness, Decreased Range of Motion Extremity: Normal Capillary Refill, Normal Inspection, Normal Range of Motion, Non Tender, No Calf Tenderness, No Pedal Edema Neurologic/Psychiatric: Alert, Oriented x3, No Motor/Sensory Deficits, Normal Mood/Affect, Motor Weakness (weakness 4/5 all extremities) Skin: Normal Color, Warm/Dry Lymphatic: No Adenopathy Results/Procedures Lab Patient resulted labs reviewed. FIM Transfers Therapy Code Descriptions/Definitions Functional [place] Measure: 0=Not Assessed/NA 4=Minimal Assistance 1=Total Assistance 5=Supervision or Setup 2=Maximal Assistance 6=Modified [place] 3=Moderate Assistance 7=Complete [place] Therapy Quality Codes: 6 Independent with activity with or without an assistive device 5 Patient requires set up or clean up by helper. Patient completes activity by themselves 4 Supervision or touching assist (CGA). [place] provide cues , steadying assist 3 The helper provides less than half the effort to complete the activity 2 The helper provides more than half the effort to complete the activity 1 Dependent. The helper does all the effort to complete an activity 7 Patient refused to complete or attempt activity 9 The patient did not perform the activity before the current illness or injury 88 Not attempted due to Medical conditions or safety concerns Gait Training Does the Patient Walk?: Yes Distance (FIM): 1=up to 49 ft Mental Status/Objective Comprehension: 4 Expression: 4 Social Interaction: 4 Problem Solvin Memory: 3 ADL-Treatment Groomin Bathin Shower/Bathe Self (QC): 3 Upper Extremity Dressin Upper Body Dressing (QC): 5 Lower Extremity Dressin Lower Body Dressing (QC): 3 On/Off Footwear (QC): 3 Toiletin (Per PT report) Toilet/Commode Transfer: 4 (Per PT report) Toilet Transfer (QC): 3 Shower: 4 Assessment/Plan Assessment and Plan Assess & Plan/Chief Complaint Assessment/Plan: (1) Sacral fracture, closed- no surgical repair option (2) Debility- needs IRF to return to PLOF of independent, Lovenox for immobile state and DVT PPx (3) Hypertension- home meds and monitor closely (4) Hyperlipidemia- home meds (5) Renal insufficiency- monitor creatinine closely and checked labs (6) Anemia- monitor hgb (7) RLS (restless legs syndrome)- home meds (8) Fall-PT/OT to educate on safety and fall risk (9) Allergic rhinitis- on Singulair (10) Constipation- start meds that she takes at home and now resolved 12/24/18 (11) Sacral pain- add Ultram and Hydrocodone monitor for delirium but added Fentanyl patch 12mcg on 12/23/18 and increased to 25mcg on 12/26/18 (12) Incontinence (13) UTI- placed on Amoxil then changed to Augmentin when UCx completed and consulted Dr Aguilar (14) acute and severe delirium-resolved (15) Fecal incontinence? Plan: Decreased intensity for inpatient rehabilitation to 25/03 but very well may fail IRF and need senior care Monday for DC Hold fentanyl patch and use only Tylenol Hold baclofen due to oversedation Low dose Risperdal to help clear delirium and will maintain that dosing now Supportive care Very complex case Incontinence of bowel is a new issue so will need to apply bowel training also (1) Delirium (2) Sacral fracture, closed (3) Anemia (4) Hyperlipidemia (5) Renal insufficiency (6) Allergic rhinitis (7) Debility (8) Hypertension (9) Fall (10) RLS (restless legs syndrome) (11) Constipation (12) Sacral pain (13) Incontinence (14) DVT prophylaxis (15) Neurogenic bladder (16) UTI (urinary tract infection) MIKE BRAMBILA DO Dec 31, 2018 08:12
[2018-12-31 08:56] VITALS: BP 134/72
[2018-12-31] MEDS: FENTANYL PATCH REMOVAL TP SCH (09:00)
--- NOTE | 2018-12-31 09:00 | Physical Therapy Daily Note ---
PT Daily Note-Current Subjective Pt. was in bed upon arrival. Pt. agreed to therapy treatment. Pt. had no complaints of pain before treatment. Pt. said she took pain pill before treatment. Pain Location: No Pain Reported Mental Status Patient Orientation: Person, Place, Situation Transfers Therapy Code Descriptions/Definitions Functional [place] Measure: 0=Not Assessed/NA 4=Minimal Assistance 1=Total Assistance 5=Supervision or Setup 2=Maximal Assistance 6=Modified [place] 3=Moderate Assistance 7=Complete [place] Therapy Quality Codes: 6 Independent with activity with or without an assistive device 5 Patient requires set up or clean up by helper. Patient completes activity by themselves 4 Supervision or touching assist (CGA). [place] provide cues , steadying assist 3 The helper provides less than half the effort to complete the activity 2 The helper provides more than half the effort to complete the activity 1 Dependent. The helper does all the effort to complete an activity 7 Patient refused to complete or attempt activity 9 The patient did not perform the activity before the current illness or injury 88 Not attempted due to Medical conditions or safety concerns Transfers (B, C, W/C) (FIM): 5 Scootin Rollin Supine to/from Sit: 5 Sit to/from Stand: 5 Sit to Lying (QC): 5 Sit to Stand (QC): 5 Pt. needs VC when transferring from supine to sit but can complete task by themselves. Weight Bearing Right Lower Extremity: Right Weight Bearing/Tolerated Left Lower Extremity: Left Weight Bearing/Tolerated Gait Training Does the Patient Walk?: Yes Gait (FIM): 1 Distance (FIM): 1=up to 49 ft (32ft, 25ftf, 12ft) Distance: 32' Gait Level of Assist: 5 Gait Persons Needed: 1 Gait Assistive Device: FWW Pt. ambulates with narrow REYNA. Pt. hugs toward the right side of walker when ambulating. Pt. has chronic inversion in the L foot due to apparent previous injuries. Wheelchair Training Does the Pt Use a Wheelchair?: No Exercises Supine Ex: Bridging, Ankle pumps, Quad Set, Heel Slides, Short Arc Quads, Scooting, Hip abd/add Supine Reps: 10 Treatments pt. with brief on required max assist to doff and [place] wet brief and [place] clean. pt. states she still does not have control of urine but she has had success with BMs on BSC Assessment Current Status: Good Progress Pt. much more alert than last week, increased funct mobility and less pain c/o. Pt. seems anxious to become better. Pt. started complaining of pain in pelvic region .towards end of treatment. Pt. will continue to benefit from therapy services to work on strength and mobility. 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 Intermediate Goals PT Aircraft Power Plant Assembler Goals Time Frame: January 09, 2019 Transfers (B,C,W/C) (FIM): 6 Sit to Lying (QC): 6 Lying-Sitting on Side/Bed(QC): 6 Sit to Stand (QC): 6 Rollin Roll Left to Right (QC): 6 Chair/Clr-nj-Bzjmd Xfer(QC): 6 Car Transfer (QC): 6 Does the Patient Walk: Yes Gait (FIM): 6 Gait distance (FIM): 3=150 ft Walk 10 feet (QC): 6 Walk 10ft-Uneven Surface(QC): 6 Walk 50ft with 2 Turns (QC): 6 Walk 150 ft (QC): 6 Gait Assistive Device: FWW Does the Pt use WC or Scooter?: No Stairs (FIM): 5 # of Steps: 4 1 Step (curb) (QC): 6 4 Steps (QC): 6 12 Steps (QC): 10 Picking up an Object (QC): 10 PT Plan Treatment/Plan Treatment Plan: Continue Plan of Care Treatment Plan: Bed Mobility, Education, Functional Activity Melissa, Functional Strength, Group Therapy, Gait, Safety, Therapeutic Exercise, Transfers Treatment Duration: January 09, 2019 Frequency: At least 5 of 7 days/Wk (IRF) Estimated Hrs Per Day: 1.5 hours per day Patient and/or Family Agrees t: Yes Safety Risks/Education Patient Education: Gait Training, Transfer Techniques, Correct Positioning, Disease Process, Safety Issues Teaching Recipient: Patient Teaching Methods: Discussion Response to Teaching: Verbalize Understanding Time/GCodes Time In: 800 Time Out: 900 Total Billed Treatment Time: 60 Total Billed Treatment 1, GT x 15min, EX x 15 min, FA x 30 min G Codes Necessary: JUSTIN Mcclain SPACE CONTROLLER Dec 31, 2018 09:00
[2018-12-31] MEDS: amLODIPine 10 MG (NORVASC) TAB PO SCH (09:01)
[2018-12-31] MEDS: ASPIRIN E.C. 81 MG (ECOTRIN) TAB PO SCH ×2 (09:02→20:10)
[2018-12-31] MEDS: PREGABALIN 75 MG (LYRICA) CAP PO SCH ×2 (09:02→20:10)
[2018-12-31] MEDS: VITAMIN D3 1,000 UNITS (CHOLECALCIFEROL) TABLET PO SCH (09:02)
[2018-12-31] MEDS: risperiDONE 0.25 MG (RisperDAL) TAB PO SCH (09:02)
[2018-12-31] MEDS: ATENOLOL 50 MG (TENORMIN) TAB PO SCH ×2 (09:02→20:11)
[2018-12-31] MEDS: lisINopril 20 MG (PRINIVIL) TABLET PO SCH ×2 (09:02→20:11)
[2018-12-31] MEDS: SPIRONOLACTONE 25 MG (ALDACTONE) TAB PO SCH (09:02)
[2018-12-31] MEDS: KRILL OIL 350 MG PO SCH (09:07)
[2018-12-31] MEDS: FENOFIBRATE 160 MG TABLET PO SCH (09:08)
[2018-12-31] MEDS: SENNA W/DOCUSATE (SENOKOT S) TABLET PO SCH ×2 (09:16→20:10)
[2018-12-31] MEDS: LIDOCAINE 4% (SALONPAS) PATCH TOP SCH (09:16)
--- NOTE | 2018-12-31 09:49 | Occupational Ther Daily Note ---
OT Current Status-Daily Note Subjective Pt alert, lying back in recliner. Pt agrees to therapy. Pt c/o pain, 10/, nrsg in room and gave pain meds. Mental Status/Objective Patient Orientation: Person, Place, Time, Situation Therapy Code Descriptions/Definitions Functional [place] Measure: 0=Not Assessed/NA 4=Minimal Assistance 1=Total Assistance 5=Supervision or Setup 2=Maximal Assistance 6=Modified [place] 3=Moderate Assistance 7=Complete [place] ADL-Treatment Pt agrees to shower. Pt requires encouragement to use UE for task instead of allowing someone to do for her. After therapy, pt lying in back in recliner with call light/phone in reach. All needs met in room. Therapy Code Descriptions/Definitions Functional [place] Measure: 0=Not Assessed/NA 4=Minimal Assistance 1=Total Assistance 5=Supervision or Setup 2=Maximal Assistance 6=Modified [place] 3=Moderate Assistance 7=Complete [place] Therapy Quality Codes: 6 Independent with activity with or without an assistive device 5 Patient requires set up or clean up by helper. Patient completes activity by themselves 4 Supervision or touching assist (CGA). [place] provide cues , steadying assist 3 The helper provides less than half the effort to complete the activity 2 The helper provides more than half the effort to complete the activity 1 Dependent. The helper does all the effort to complete an activity 7 Patient refused to complete or attempt activity 9 The patient did not perform the activity before the current illness or injury 88 Not attempted due to Medical conditions or safety concerns Bathing (FIM): 3 (After set up and using BSC in shower and hand held shower pt able to complete 70% of own bathing and drying. Pt had difficulty with sitting on seat, but was able to tolerate. Pt wanted to hang onto arms of BSC, verbal cues and encouragement to use UE's.) Bathing Location: L Arm, R Arm, L Upper Leg, R Upper Leg, Chest, Abdomen, Perineal Area Shower/Bathe Self (QC): 3 Upper Body (FIM): 5 (After set up, pt able to don/doff upper body clothing.) Upper Body Dressing (QC): 5 Lower Body Dressing (FIM): 2 (Assist to don/doff over feet and hike up LE's and buttocks due to pain. Pt does not want to lift UE's off of chair arms or FWW to hike pants or use AE for don/doff over feet.) Lower Body Dressing (QC): 2 On/Off Footwear (QC): 2 Toileting (FIM): 2 (Assist to manipulate clothing and cleanse buttocks after BM. Sitting on BSC and assist to separate LE's, pt able to complete alcon area hygiene.) Toileting Hygiene (QC): 2 Transfers (B, C, W/C) (FIM): 4 (Min A for sit <--> stand, CGA using FWW to ambulate.) Toilet/Commode Transfer (FIM): 4 (Using BSC and FWW, pt able to complete with min A.) Toilet Transfer (QC): 3 Shower Transfer(FIM): 4 (Using BSC and FWW, pt able to complete with min A.) OT Short Term Goals Short Term Goals Time Frame: Dec 28, 2018 Bathing(FIM): 4 Upper Body Dressing(FIM): 5 Lower Body Dressing(FIM): 4 Toileting(FIM): 4 Toilet/Commode Transfer(FIM): 5 Comprehension(FIM): 4 (CGA) Additional Short Term Goals: 1-Demonstrate ADL Tasks, 2-Verbalize Understanding , 3-ImproveStrength/Melissa 1=Demonstrate adherence to instructed precautions during ADL tasks. 2=Patient will verbalize/demonstrate understanding of assistive devices/ modifications for ADL. 3=Patient will improve strength/tolerance for activity to enable patient to perform ADL's. OT Alf Goals Alf Goals Time Frame: January 11, 2019 Eating (FIM): 7 Eating (QC): 6 Groomin Oral Hygiene (QC): 6 Bathing(FIM): 5 Shower/Bathe Self (QC): 5 Upper Body Dressing(FIM): 5 Upper Body Dressing (QC): 6 Lower Body Dressing(FIM): 5 Lower Body Dressing (QC): 6 On/Off Footwear (QC): 6 Toileting(FIM): 6 Toileting Hygiene (QC): 6 Toilet/Commode Transfer(FIM): 6 Toilet/Commode Transfer (QC): 6 Shower Transfer(FIM): 5 Comprehension(FIM): 7 Expression (FIM): 7 Social Interaction(FIM): 7 Problem Solving(FIM): 7 Memory(FIM): 7 Additional Goals: 1-Demonstrate ADL Tasks, 2-Verbalize Understanding, 3- ImproveStrength/Melissa 1=Demonstrate adherence to instructed precautions during ADL tasks. 2=Patient will verbalize/demonstrate understanding of assistive devices/ modifications for ADL. 3=Patient will improve strength/tolerance for activity to enable patient to perform ADL's. OT Education/Plan Problem List/Assessment Assessment: Decreased Activ Tolerance, Decreased UE Strength, Impaired Bed Mobility, Impaired Coordination, Impaired Self-Care Skills Discharge Recommendations Plan/Recommendations: Continue POC Treatment Plan/Plan of Care Patient would benefit from OT for education, treatment and training to promote independence in ADL's, mobility, safety and/or upper extremity function for ADL' s. Plan of Care: ADL Retraining, Functional Mobility Treatment Duration: January 11, 2019 Frequency: At least 5 of 7 days/Wk (IRF) Estimated Hrs Per Day: 1.5 hours per day Rehab Potential: Good Time/GCodes Start Time: 09:00 Stop Time: 10:00 Total Time Billed (hr/min): 60 Billed Treatment Time 1 visit-ADL 4 (60 min) CECILIA MOSELEY Dec 31, 2018 09:49
--- NOTE | 2018-12-31 10:50 | NUR ---
Pastoral care visit.
--- NOTE | 2018-12-31 11:39 | Speech Therapy Daily Note ---
Speech Daily Progress Note Subjective Date Seen by Provider: Dec 31, 2018 Time Seen by Provider: 00:30 The patient was resting in her recliner after just finishing her shower when I arrived. Objective The patient completed memory exercises at 80% with min to mod verbal cuing. Assessment Assessment Current Status: Good Progress Treatment Plan Continue Plan of Care Communication Comprehension: 4 Expression: 4 Social Cognition Social Interaction: 4 Problem Solvin Memory: 3 Speech Short Term Goals Short Term Goals Short Term Goals 1) The patient will complete executive function tasks with 80% or greater with minimal cues. 2) The patient will complete memory tasks with 80% or greater with minimal cues. 3) The patient will demonstrate following simple 2 step directions with 80% or greater with minimal cues. Comprehension: 4 (CGA) Speech Water Gas Operator Goals [facility] Goals The patient will improve cognitive function with focus on safety and independence. Comprehension: 7 Expression: 7 Social Interaction: 7 Problem Solvin Memory: 7 Speech-Plan Patient/Family Goals Patient/Family Goals: The patient plans on returning home with her family post rehab. Treatment Plan Speech Therapy Treatment Plan: Continue Plan of Care The patient exhibited increased level of alertness this am. Treatment Duration: Jan 04, 2019 Frequency: 5 times per week Estimated Hrs Per Day: .5 hour per day Rehab Potential: Good Barriers to Learning: The patient has times of decreased alertness. Pt/Family Agrees to Plan: Yes Safety Risks/Education Teaching Recipient: Patient Teaching Methods: Discussion Response to Teaching: Verbalize Understanding Education Topics Provided: Safety and communication of wants/needs Time Speech Therapy Time In: 10:00 Speech Therapy Time Out: 10:30 Total Billed Time: 30 Billed Treatment Time 1TAE [address] Dec 31, 2018 11:39
--- NOTE | 2018-12-31 12:16 | NUR ---
PT EATING FAIRLY WELL, 73% MEALS. WEIGHT STABLE. ALBUMIN SLIGHTLY HIGHER. PO INTAKE MEETING NEEDS AT THIS TIME. CONT SAME.
[2018-12-31] MEDS: ENOXAPARIN 40 MG/0.4 ML (LOVENOX) SYR SC SCH (12:35)
--- NOTE | 2018-12-31 13:37 | Physical Therapy Daily Note ---
PT Daily Note-Current Subjective Agrees to gait and asks that her brief be changed as it is wet. Pain Numeric Pain Scale: 4 Location: No Pain Reported, Left Location Body Site: Hip Pain Description: Ache Comment: c/o pain left hip area with TRFs and post gait Appearance wet brief Mental Status Patient Orientation: Person, Place, Time, Situation Transfers Therapy Code Descriptions/Definitions Functional [place] Measure: 0=Not Assessed/NA 4=Minimal Assistance 1=Total Assistance 5=Supervision or Setup 2=Maximal Assistance 6=Modified [place] 3=Moderate Assistance 7=Complete [place] Therapy Quality Codes: 6 Independent with activity with or without an assistive device 5 Patient requires set up or clean up by helper. Patient completes activity by themselves 4 Supervision or touching assist (CGA). [place] provide cues , steadying assist 3 The helper provides less than half the effort to complete the activity 2 The helper provides more than half the effort to complete the activity 1 Dependent. The helper does all the effort to complete an activity 7 Patient refused to complete or attempt activity 9 The patient did not perform the activity before the current illness or injury 88 Not attempted due to Medical conditions or safety concerns Transfers (B, C, W/C) (FIM): 4 Scootin Rollin Roll Left to Right (QC): 5 Supine to/from Sit: 4 Sit to/from Stand: 4 Sit to Lying (QC): 4 Sit to Stand (QC): 4 Chair/Jle-oq-Icbsu Xfer(QC): 4 Bed to/from Chair: 4 pt. unable to trial car TRF secondary to pain limitations Weight Bearing Right Lower Extremity: Right Weight Bearing/Tolerated Left Lower Extremity: Left Weight Bearing/Tolerated Gait Training Does the Patient Walk?: Yes Gait (FIM): 1 Distance (FIM): 1=up to 49 ft (35ft) Walk 10 feet (QC): 4 Walking 10ft/uneven surface-QC: 4 Gait Level of Assist: 4 Gait Persons Needed: 1 Gait Assistive Device: FWW t. does surprisingly well in feet for gait but TRFs are painful and fatigue her Stair Training pt. unable to trial steps secondary to pain onset Balance Special Test Comments unable to trial bending, unsafe Exercises Supine Ex: Glut sets, Heel Slides Supine Reps: 8 Seated Therapy Exercises: Ankle pumps, Sit to stand, Long arc quads, Hip abd/ add Seated Reps: 8 Treatments max assist to doff and [place] damien , several sit to stand with SBA Assessment Current Status: Good Progress pt is alert and function has improved over last week as well as pain level has decreased, progress noted today PT Short Term Goals Short Term Goals Time Frame: Dec 28, 2018 Gait (FIM): 4 PT Regional Program Manager Goals [facility] Goals PT [facility] Goals Time Frame: January 09, 2019 Transfers (B,C,W/C) (FIM): 6 Sit to Lying (QC): 6 Lying-Sitting on Side/Bed(QC): 6 Sit to Stand (QC): 6 Rollin Roll Left to Right (QC): 6 Chair/Asp-eq-Vrgse Xfer(QC): 6 Car Transfer (QC): 6 Does the Patient Walk: Yes Gait (FIM): 6 Gait distance (FIM): 3=150 ft Walk 10 feet (QC): 6 Walk 10ft-Uneven Surface(QC): 6 Walk 50ft with 2 Turns (QC): 6 Walk 150 ft (QC): 6 Gait Assistive Device: FWW Does the Pt use WC or Scooter?: No Stairs (FIM): 5 # of Steps: 4 1 Step (curb) (QC): 6 4 Steps (QC): 6 12 Steps (QC): 10 Picking up an Object (QC): 10 PT Plan Treatment/Plan Treatment Plan: Continue Plan of Care Treatment Plan: Bed Mobility, Education, Functional Activity Melissa, Functional Strength, Group Therapy, Gait, Safety, Therapeutic Exercise, Transfers Treatment Duration: January 09, 2019 Frequency: At least 5 of 7 days/Wk (IRF) Estimated Hrs Per Day: 1.5 hours per day Patient and/or Family Agrees t: Yes Safety Risks/Education Patient Education: Gait Training, Transfer Techniques, Correct Positioning, Disease Process, Safety Issues Teaching Recipient: Patient Teaching Methods: Demonstration, Discussion Response to Teaching: Verbalize Understanding, Return Demonstration, Reinforcement Needed Time/GCodes Time In: 1300 Time Out: 1320 Total Billed Treatment Time: 20 Total Billed Treatment 1,GT20m G Codes Necessary: JUSTIN Mcclain FARM MACHINERY MECHANIC Dec 31, 2018 13:37
--- NOTE | 2018-12-31 13:57 | Occupational Ther Daily Note ---
OT Current Status-Daily Note Subjective Pt alert, lying back in recliner. Pt required encouragement to participate. Pt did agree to therapy. C/o pain, did not rate at this time. Mental Status/Objective Patient Orientation: Person, Place, Time, Situation Therapy Code Descriptions/Definitions Functional [place] Measure: 0=Not Assessed/NA 4=Minimal Assistance 1=Total Assistance 5=Supervision or Setup 2=Maximal Assistance 6=Modified [place] 3=Moderate Assistance 7=Complete [place] ADL-Treatment Pt anxious about walking to bathroom. Pt able to complete then sat at sink due to pain with standing. Min A to get into bed, assist with LE's and to straighten self. After therapy, pt lying in bed with call light/phone in reach. All needs met in room. Therapy Code Descriptions/Definitions Functional [place] Measure: 0=Not Assessed/NA 4=Minimal Assistance 1=Total Assistance 5=Supervision or Setup 2=Maximal Assistance 6=Modified [place] 3=Moderate Assistance 7=Complete [place] Therapy Quality Codes: 6 Independent with activity with or without an assistive device 5 Patient requires set up or clean up by helper. Patient completes activity by themselves 4 Supervision or touching assist (CGA). [place] provide cues , steadying assist 3 The helper provides less than half the effort to complete the activity 2 The helper provides more than half the effort to complete the activity 1 Dependent. The helper does all the effort to complete an activity 7 Patient refused to complete or attempt activity 9 The patient did not perform the activity before the current illness or injury 88 Not attempted due to Medical conditions or safety concerns Grooming (FIM): 5 (Sitting at sink, pt able to complete grooming. Pt unable to lean forward due to pain to spit into sink or reach faucet to turn on water.) Oral Hygiene (QC): 4 OT Short Term Goals Short Term Goals Time Frame: Dec 28, 2018 Bathing(FIM): 4 Upper Body Dressing(FIM): 5 Lower Body Dressing(FIM): 4 Toileting(FIM): 4 Toilet/Commode Transfer(FIM): 5 Comprehension(FIM): 4 (CGA) Additional Short Term Goals: 1-Demonstrate ADL Tasks, 2-Verbalize Understanding , 3-ImproveStrength/Melissa 1=Demonstrate adherence to instructed precautions during ADL tasks. 2=Patient will verbalize/demonstrate understanding of assistive devices/ modifications for ADL. 3=Patient will improve strength/tolerance for activity to enable patient to perform ADL's. OT Claim Adjuster Goals [facility] Goals Time Frame: January 11, 2019 Eating (FIM): 7 (not met (dentures)) Eating (QC): 6 Groomin (met-12/31/18) Oral Hygiene (QC): 6 (not met) Bathing(FIM): 5 (not met) Shower/Bathe Self (QC): 5 (not met) Upper Body Dressing(FIM): 5 (met-12/31/18) Upper Body Dressing (QC): 6 (not met) Lower Body Dressing(FIM): 5 (not met) Lower Body Dressing (QC): 6 (not met) On/Off Footwear (QC): 6 (not met) Toileting(FIM): 6 (not met) Toileting Hygiene (QC): 6 (not met) Toilet/Commode Transfer(FIM): 6 (not met) Toilet/Commode Transfer (QC): 6 (not met) Shower Transfer(FIM): 5 Comprehension(FIM): 7 Expression (FIM): 7 Social Interaction(FIM): 7 Problem Solving(FIM): 7 Memory(FIM): 7 Additional Goals: 1-Demonstrate ADL Tasks, 2-Verbalize Understanding, 3- ImproveStrength/Melissa 1=Demonstrate adherence to instructed precautions during ADL tasks. 2=Patient will verbalize/demonstrate understanding of assistive devices/ modifications for ADL. 3=Patient will improve strength/tolerance for activity to enable patient to perform ADL's. OT Education/Plan Problem List/Assessment Assessment: Decreased Activ Tolerance, Decreased Safety Aware, Decreased UE Strength, Impaired Funct Balance, Impaired Self-Care Skills Discharge Recommendations Plan/Recommendations: Continue POC Therapy D/C Recommendations: Fpc (TCU/NH) Equpiment Recommendations-D/C: Hip Kit Treatment Plan/Plan of Care Patient would benefit from OT for education, treatment and training to promote independence in ADL's, mobility, safety and/or upper extremity function for ADL' s. Plan of Care: ADL Retraining, Functional Mobility Treatment Duration: January 11, 2019 Frequency: At least 5 of 7 days/Wk (IRF) Estimated Hrs Per Day: 1.5 hours per day Rehab Potential: Good Time/GCodes Start Time: 13:30 Stop Time: 13:45 Total Time Billed (hr/min): 15 Billed Treatment Time 1 visit-ADL 1 (15 min) CECILIA MOSELEY Dec 31, 2018 13:57
[2018-12-31 15:28] VITALS: BP 93/59
--- NOTE | 2018-12-31 16:37 | NUR ---
BARREL TESTER AND DRAINER received notification from [facility] of acceptance for SNIF placement tomorrow. BARREL TESTER AND DRAINER notified patient, patient's family and Dr. Christopher of acceptance. Although patient has appeared to tolerate therapies more with recent change of 25/03, patient continues to complain of excruciating pain with activity. Patient and family believe a less rigorous level of therapy will provide more benefit at this time. BARREL TESTER AND DRAINER reviewed IM in and patient choice letter with patient, she expresses no concerns regarding discharge plans. Patient's family intends to provide transportation tomorrow around 11 a.m. via reclining seat and car. Patient and family believe this will be a more comfortable mode of transportation versus EMS. Please see discharge summary for further information.
[2018-12-31] MEDS: TAMSULOSIN 0.4 MG (FLOMAX) CAP PO SCH (17:41)
[2018-12-31] MEDS: MONTELUKAST 10 MG (SINGULAIR) TAB PO SCH (20:10)
[2018-12-31] MEDS: LIDOCAINE PATCH REMOVAL TP SCH (20:11)
[2018-12-31 20:40] VITALS: BP 108/66
[2019-01-01 05:43] VITALS: BP 116/72
[2019-01-01] MEDS: AUGMENTIN 500 MG TAB (AMOXICILLIN/CLAVULANATE) PO SCH (06:38)
[2019-01-01] MEDS: [UNRECOGNIZED DRUG - OTHER] PO SCH (06:38)
[2019-01-01] MEDS: CALCIUM CARB + VIT D 600 MG (CALCARB + D) TAB PO SCH (06:38)
[2019-01-01] MEDS ORDERED: AMOX1TAB11 PO (08:36)
[2019-01-01] MEDS ORDERED: ENOX40DI8 SC (08:36)
[2019-01-01] MEDS ORDERED: TRAM50TA2 PO (08:36)
[2019-01-01] MEDS ORDERED: ACET-77 PO (08:36)
[2019-01-01] MEDS ORDERED: TAMS0.4C98 PO (08:36)
[2019-01-01] MEDS ORDERED: Lidocaine 4% Patch TOP (08:36)
[2019-01-01] MEDS ORDERED: PREG75CA PO (08:36)
--- NOTE | 2019-01-01 08:39 | Discharge Summary ---
Diagnosis/Chief Complaint Date of Admission Dec 21, 2018 at 12:20 Date of Discharge Discharge Date: Jan 01, 2019 Discharge Diagnosis (1) Sacral fracture, closed- no surgical repair option (2) Debility- needs IRF to return to PLOF of independent, Lovenox for immobile state and DVT PPx (3) Hypertension- home meds and monitor closely (4) Hyperlipidemia- home meds (5) Renal insufficiency- monitor creatinine closely and checked labs (6) Anemia- monitor hgb (7) RLS (restless legs syndrome)- home meds (8) Fall-PT/OT to educate on safety and fall risk (9) Allergic rhinitis- on Singulair (10) Constipation- start meds that she takes at home and now resolved 12/24/18 (11) Sacral pain- add Ultram and Hydrocodone monitor for delirium but added Fentanyl patch 12mcg on 12/23/18 and increased to 25mcg on 12/26/18 (12) Incontinence (13) UTI- placed on Amoxil then changed to Augmentin when UCx completed and consulted Dr Aguilar (14) acute and severe delirium-resolved (15) Fecal incontinence? Plan: Decreased intensity for inpatient rehabilitation to 25/03 but very well may fail IRF and need fdc Monday for DC Hold fentanyl patch and use only Tylenol Hold baclofen due to oversedation Low dose Risperdal to help clear delirium and will maintain that dosing now Supportive care Very complex case Incontinence of bowel is a new issue so will need to apply bowel training also Discharge Summary Discharge Physical Examination Allergies: Coded Allergies: No Known Drug Allergies (Unverified , 12/21/18) Vitals & I&Os Vital Signs Date Time Temp Pulse Resp B/P (MAP) Pulse Ox O2 Delivery O2 Flow Rate FiO2 01/01/19 11:30 62 20 115/65 97 Room Air 01/01/19 09:07 97.4 General Appearance: Alert, Oriented X3, Cooperative HEENT: Atraumatic, PERRLA Respiratory: Clear to Auscultation, Normal Air Movement Cardiovascular: Regular Rate, Normal S1, Normal S2 Abdominal: Normal Bowel Sounds, Soft Extremities: No Clubbing, No Cyanosis Skin: No Rashes, No Breakdown Neuro: Normal Speech, Strength at 5/5 X4 Ext, Cranial Nerves 3-12 NL Psych/Mental Status: Mental Status NL, Mood NL Hospital Course Was the Problem List Reviewed?: Yes Hospital course: Pt had a lengthy hospital course in inpatient rehab for eleven days, but at time of discharge she required skilled care so those orders were placed after accepted into a [facility] facility. She had significant difficulty with the sacral fracture pain which improves somewhat on narcotics and Baclofen although all of them were very low dose given she did experience significant delirium, which was expected so Fentanyl patch was discontinued along with Baclofen and Tylenol was only given and she actually tolerated that regimen very well with Tylenol only, Pt was given a low dose of Risperdal to clear the delirium which was successful. Urinary incontinence continued which she had a type of neurogenic bladder to begin with so that will be difficult to retrain. She did have a UTI, urology was consulted, Pt will complete antibiotics two days after discharge, Augmentin 500mg BID. Bowel function remained normal although had fecal incontinence at times. Overall she was able to walk 36 feet with PT and rest in between, but due to the fact that the Pt's family could not provide for her significant needs at time of discharge she was deemed skiable and was discharged in stable condition. Labs (last 24 hrs) Laboratory Tests 12/21/18 12:20: Lab Scanned Report Referred Lab Report 12/22/18 05:00: White Blood Count 5.8, Red Blood Count 3.71L, Hemoglobin 11.4L, Hematocrit 34L, Mean Corpuscular Volume 91, Mean Corpuscular Hemoglobin 31, Mean Corpuscular Hemoglobin Concent 34, Red Cell Distribution Width 15.2H, Platelet Count 184, Mean Platelet Volume 9.6, Neutrophils (%) (Auto) 71, Lymphocytes (%) (Auto) 15, Monocytes (%) (Auto) 14H, Eosinophils (%) (Auto) 0, Basophils (%) (Auto) 0, Neutrophils # (Auto) 4.1, Lymphocytes # (Auto) 0.9L, Monocytes # (Auto) 0.8, Eosinophils # (Auto) 0.0, Basophils # (Auto) 0.0, Sodium Level 139, Potassium Level 4.2, Chloride Level 109H, Carbon Dioxide Level 22, Anion Gap 8, Blood Urea Nitrogen 36H, Creatinine 0.85, Estimat Glomerular Filtration Rate > 60, BUN /Creatinine Ratio 42, Glucose Level 104, Calcium Level 9.3, Corrected Calcium 9.9, Total Bilirubin 1.0, Aspartate Amino Transf (AST/SGOT) 37H, Alanine Aminotransferase (ALT/SGPT) 29, Alkaline Phosphatase 81, Total Protein 5.5L, Albumin 3.2 12/23/18 18:17: Urine Color YELLOW, Urine Clarity CLEAR, Urine pH 5, Urine Specific [place] 1.015L, Urine Protein NEGATIVE, Urine Glucose (UA) NEGATIVE, Urine Ketones NEGATIVE, Urine Nitrite POSITIVEH, Urine Bilirubin NEGATIVE, Urine Urobilinogen 1, Urine Leukocyte Esterase 3+H, Urine RBC (Auto) 1+H, Urine RBC NONE, Urine WBC 25-50H, Urine Squamous Epithelial Cells 0-2, Urine Crystals NONE, Urine Bacteria LARGEH, Urine Casts NONE, Urine Mucus NEGATIVE, Urine Culture Indicated YES 12/28/18 10:20: White Blood Count 3.8L, Red Blood Count 3.79L, Hemoglobin 11.4L, Hematocrit 35, Mean Corpuscular Volume 92, Mean Corpuscular Hemoglobin 30, Mean Corpuscular Hemoglobin Concent 33, Red Cell Distribution Width 14.9H, Platelet Count 168, Mean Platelet Volume 9.4, Neutrophils (%) (Auto) 77H, Lymphocytes (%) (Auto) 13 , Monocytes (%) (Auto) 10, Eosinophils (%) (Auto) 0, Basophils (%) (Auto) 0, Neutrophils # (Auto) 2.9, Lymphocytes # (Auto) 0.5L, Monocytes # (Auto) 0.4, Eosinophils # (Auto) 0.0, Basophils # (Auto) 0.0, Sodium Level 140, Potassium Level 5.0, Chloride Level 111H, Carbon Dioxide Level 21, Anion Gap 8, Blood Urea Nitrogen 46H, Creatinine 1.04, Estimat Glomerular Filtration Rate 50, BUN/ Creatinine Ratio 44, Glucose Level 100, Calcium Level 9.1, Corrected Calcium 9.7 , Total Bilirubin 0.8, Aspartate Amino Transf (AST/SGOT) 25, Alanine Aminotransferase (ALT/SGPT) 23, Alkaline Phosphatase 152H, Total Protein 5.6L, Albumin 3.3 Microbiology 12/23/18 Urine Culture - Final, Complete Escherichia coli Pending Labs Microbiology Date/Time Source Procedure Growth Status 12/23/18 18:17 Urine Straight Cath, In/Out Urine Culture - Final Escherichia coli Complete Laboratory Tests 12/21/18 12:20: Lab Scanned Report Referred Lab Report 4/13/19 05:00: White Blood Count 5.8, Red Blood Count 3.71, Hemoglobin 11.4, Hematocrit 34, Mean Corpuscular Volume 91, Mean Corpuscular Hemoglobin 31, Mean Corpuscular Hemoglobin Concent 34, Red Cell Distribution Width 15.2, Platelet Count 184, Mean Platelet Volume 9.6, Neutrophils (%) (Auto) 71, Lymphocytes (%) (Auto) 15, Monocytes (%) (Auto) 14, Eosinophils (%) (Auto) 0, Basophils (%) (Auto) 0, Neutrophils # (Auto) 4.1, Lymphocytes # (Auto) 0.9, Monocytes # (Auto) 0.8, Eosinophils # (Auto) 0.0, Basophils # (Auto) 0.0, Sodium Level 139, Potassium Level 4.2, Chloride Level 109, Carbon Dioxide Level 22, Anion Gap 8, Blood Urea Nitrogen 36, Creatinine 0.85, Estimat Glomerular Filtration Rate > 60, BUN/ Creatinine Ratio 42, Glucose Level 104, Calcium Level 9.3, Corrected Calcium 9.9 , Total Bilirubin 1.0, Aspartate Amino Transf (AST/SGOT) 37, Alanine Aminotransferase (ALT/SGPT) 29, Alkaline Phosphatase 81, Total Protein 5.5, Albumin 3.2 12/23/18 18:17: Urine Color YELLOW, Urine Clarity CLEAR, Urine pH 5, Urine Specific [place] 1.015, Urine Protein NEGATIVE, Urine Glucose (UA) NEGATIVE, Urine Ketones NEGATIVE, Urine Nitrite POSITIVE, Urine Bilirubin NEGATIVE, Urine Urobilinogen 1 , Urine Leukocyte Esterase 3+, Urine RBC (Auto) 1+, Urine RBC NONE, Urine WBC 25 -50, Urine Squamous Epithelial Cells 0-2, Urine Crystals NONE, Urine Bacteria LARGE, Urine Casts NONE, Urine Mucus NEGATIVE, Urine Culture Indicated YES 12/28/18 10:20: White Blood Count 3.8, Red Blood Count 3.79, Hemoglobin 11.4, Hematocrit 35, Mean Corpuscular Volume 92, Mean Corpuscular Hemoglobin 30, Mean Corpuscular Hemoglobin Concent 33, Red Cell Distribution Width 14.9, Platelet Count 168, Mean Platelet Volume 9.4, Neutrophils (%) (Auto) 77, Lymphocytes (%) (Auto) 13, Monocytes (%) (Auto) 10, Eosinophils (%) (Auto) 0, Basophils (%) (Auto) 0, Neutrophils # (Auto) 2.9, Lymphocytes # (Auto) 0.5, Monocytes # (Auto) 0.4, Eosinophils # (Auto) 0.0, Basophils # (Auto) 0.0, Sodium Level 140, Potassium Level 5.0, Chloride Level 111, Carbon Dioxide Level 21, Anion Gap 8, Blood Urea Nitrogen 46, Creatinine 1.04, Estimat Glomerular Filtration Rate 50, BUN/ Creatinine Ratio 44, Glucose Level 100, Calcium Level 9.1, Corrected Calcium 9.7 , Total Bilirubin 0.8, Aspartate Amino Transf (AST/SGOT) 25, Alanine Aminotransferase (ALT/SGPT) 23, Alkaline Phosphatase 152, Total Protein 5.6, Albumin 3.3 Discharge Home Medications: Active Scripts Active [Lidocaine 4% Patch] 1 EA Patch 1 Ea TOP DAILY Acetaminophen 500 Mg Tablet 500 Mg PO Q4H PRN Enoxaparin Sodium 40 Mg/0.4 Ml Syringe 40 Mg SC DAILY@1300 Flomax (Tamsulosin HCl) 0.4 Mg Cap 0.4 Mg PO DAILY@1800 Amox Tr-K Clv 500-125 mg Tab (Amoxicillin/Potassium Clav) 1 Each Tablet 500 Mg PO BID WITH MEALS Tramadol HCl 50 Mg Tablet 50 Mg PO TID PRN Lyrica (Pregabalin) 75 Mg Capsule 75 Mg PO BID Reported Krill Oil 350 mg Softgel (Krill/Chaumont-3/Dha/Epa/Lipids) 1 Each Capsule 350 Mg PO DAILY Flintstones with Iron Tab Chew (Pedi Mv No.79/Ferrous Fumarate) 18 Mg Tab.chew 18 Mg PO BID Aspirin EC (Aspirin) 81 Mg Tablet.dr 81 Mg PO BID Vitamin D-3 (Cholecalciferol (Vitamin D3)) 2,000 Unit Capsule 2,000 Unit PO DAILY Calcium 500 + Vit D 400 Tablet (Calcium Carbonate/Vitamin D3) 1 Each Tablet 1 Tab PO BID Fenofibrate 160 Mg Tablet 160 Mg PO DAILY Colace (Docusate Sodium) 100 Mg Capsule 100 Mg PO BID Spironolactone 25 Mg Tablet 25 Mg PO DAILY Singulair (Montelukast Sodium) 10 Mg Tablet 10 Mg PO HS Lisinopril 20 Mg Tablet 20 Mg PO BID Atenolol 100 Mg Tablet 50 Mg PO HS TAKES 1/2 (100MG) TABLET Atenolol 100 Mg Tablet 100 Mg PO DAILY Amlodipine Besylate 10 Mg Tablet 10 Mg PO DAILY Instructions to patient/family Please see electronic discharge instructions given to patient. Diagnosis/Problems Diagnosis/Problems (1) Delirium (2) Sacral fracture, closed (3) Anemia (4) Hyperlipidemia (5) Renal insufficiency (6) Allergic rhinitis (7) Debility (8) Hypertension (9) Fall (10) RLS (restless legs syndrome) (11) Constipation (12) Sacral pain (13) Incontinence (14) DVT prophylaxis (15) Neurogenic bladder (16) UTI (urinary tract infection) Clinical Quality Measures DVT/VTE Risk/Contraindication: Risk Factor Score Per Nursin RFS Level Per Nursing on Admit: 4+=Very High MIKE BRAMBILA DO Jan 01, 2019 08:39
--- NOTE | 2019-01-01 08:42 | Therapy Team Discharge Summary ---
Therapy Discharge Summary Discharge Recommendations Date of Discharge 01/01/19 Therapy D/C Recommendations: Half-Way (TCU/NH) (PT) Physical Therapy This patient was transferred to our unit from [facility] post fall at home that resulted in a sacral fracture. Prior to her fall, she was indep to mod indep at home and was able to drive and ambulate short community distances. Upon admission to our unit, she was mod assist with transfers, walked 10 ft with FWW with min assist and was unable to attempt stairs due to pain and safety. She has experienced a fair amount of pain during her stay which has resulted in difficulty with upright mobility. At last visit, she required SBA with transfers and was able to walk 32 ft with FWW with CGA. She has made functional progress and her pain seems to be better managed. She is discharging this date with recommended continued skilled PT intervention at her next location. DC PT. Occupational Therapy Decreased Activ Tolerance, Decreased Safety Aware, Decreased UE Strength, Impaired Funct Balance, Impaired Self-Care Skills PT Residential Goals Patient Service Rep Goals PT Residential Goals Time Frame: January 09, 2019 Transfers (B,C,W/C) (FIM): 6 Roll Left to Right (QC): 6 Sit to Lying (QC): 6 Lying-Sitting on Side/Bed(QC): 6 Sit to Stand (QC): 6 Chair/Gyn-rp-Rwxoy Xfer(QC): 6 Car Transfer (QC): 6 Does the Patient Walk: Yes Gait (FIM): 6 Gait distance (FIM): 3=150 ft Walk 10 feet (QC): 6 Walk 10ft-Uneven Surface(QC): 6 Walk 50ft with 2 Turns (QC): 6 Walk 150 ft (QC): 6 Gait Assistive Device: FWW Does the Pt use WC or Scooter?: No Stairs (FIM): 5 # of Steps: 4 1 Step (curb) (QC): 6 4 Steps (QC): 6 12 Steps (QC): 10 Picking up an Object (QC): 10 Goals unmet; pt to transfer to SNF for continued therapy intervention OT Patient Service Rep Goals Residential Goals Time Frame: January 11, 2019 Eating (FIM): 7 (not met (dentures)) Eating (QC): 6 Oral Hygiene (QC): 6 (not met) Grooming(FIM): 5 (met-12/31/18) Bathing(FIM): 5 (not met) Shower/Bathe Self (QC): 5 (not met) Upper Body Dressing(FIM): 5 (met-12/31/18) Upper Body Dressing (QC): 6 (not met) Lower Body Dressing(FIM): 5 (not met) Lower Body Dressing (QC): 6 (not met) On/Off Footwear (QC): 6 (not met) Toileting(FIM): 6 (not met) Toileting Hygiene (QC): 6 (not met) Toilet/Commode Transfer(FIM): 6 (not met) Toilet/Commode Transfer (QC): 6 (not met) Shower Transfer(FIM): 5 Comprehension(FIM): 7 Expression (FIM): 7 Social Interaction(FIM): 7 Problem Solving(FIM): 7 Memory(FIM): 7 Additional Goals: 1-Demonstrate ADL Tasks, 2-Verbalize Understanding, 3- ImproveStrength/Melissa 1=Demonstrate adherence to instructed precautions during ADL tasks. 2=Patient will verbalize/demonstrate understanding of assistive devices/ modifications for ADL. 3=Patient will improve strength/tolerance for activity to enable patient to perform ADL's. Speech Residential Goals Residential Goals The patient will improve cognitive function with focus on safety and independence. Comprehension: 7 Expression: 7 Social Interaction: 7 Problem Solvin Memory: 7 CECILIA CROWE PT Jan 01, 2019 08:42
--- NOTE | 2019-01-01 08:45 | Discharge Inst-Skilled Nursing ---
Discharge Inst-Skilled NF Patient Instructions Patient Problems: Sacral fracture Intolerant to narcotics and muscle relaxants Delirium HTN Urinary incontinence Goal: Return to independent living Consult/Follow Up/Orders Follow Up Appt.: PCP in 1 week Skilled NF Admit to: Certification (SNF) I certify that SNF services are required to be given on an inpatient basis because of the above named patient's need for alf care on a continuing basis for the conditions(s) for which he/she was receiving inpatient hospital services prior to his/her transfer to the SNF. Retirement Facility Order: Nursing Services, Gm/Svp [employer]-Evaluate & Treat, Physical Therapy-Evaluate & Treat, Speech Language-Evaluate & Treat Oxygen Delivery Method: Room Air Discharge Diet: No Restrictions Daily Activity as Tolerated: Yes New & Resume Previous Orders Celine Christopher Jan 01, 2019 08:44 Pneu Vac Indicated: Yes CELINE CHRISTOPHER DO Jan 01, 2019 08:44
[2019-01-01] MEDS: LIDOCAINE 4% (SALONPAS) PATCH TOP SCH (08:56)
[2019-01-01] MEDS: PREGABALIN 75 MG (LYRICA) CAP PO SCH (08:57)
[2019-01-01] MEDS: VITAMIN D3 1,000 UNITS (CHOLECALCIFEROL) TABLET PO SCH (08:57)
[2019-01-01] MEDS: ASPIRIN E.C. 81 MG (ECOTRIN) TAB PO SCH (08:57)
[2019-01-01 09:07] VITALS: BP 115/65
[2019-01-01] MEDS: SENNA W/DOCUSATE (SENOKOT S) TABLET PO SCH (09:17)
[2019-01-01] MEDS: FENOFIBRATE 160 MG TABLET PO SCH (09:18)
[2019-01-01] MEDS: KRILL OIL 350 MG PO SCH (09:19)
[2019-01-01] MEDS: lisINopril 20 MG (PRINIVIL) TABLET PO SCH (09:21)
[2019-01-01] MEDS: amLODIPine 10 MG (NORVASC) TAB PO SCH (09:21)
[2019-01-01] MEDS: SPIRONOLACTONE 25 MG (ALDACTONE) TAB PO SCH (09:21)
[2019-01-01] MEDS: ATENOLOL 50 MG (TENORMIN) TAB PO SCH (09:21)
--- NOTE | 2019-01-01 09:22 | NUR ---
Received order to hold B/P meds if SBP < 130, meds held, see v/s.
[2019-01-01] MEDS: ACETAMINOPHEN 500 MG TAB (TYLENOL) PO PRN (11:16)
[2019-01-01 11:30] VITALS: BP 115/65
--- NOTE | 2019-01-01 13:31 | Speech Therapy Daily Note ---
Speech Daily Progress Note Subjective Date Seen by Provider: Jan 01, 2019 Time Seen by Provider: 00:30 The patient was preparing to discharge to a SNF in [place] Assessment Assessment Current Status: Good Progress Treatment Plan Discontinue ST, Goals Met Communication Comprehension: 7 Expression: 7 Social Cognition Social Interaction: 7 Problem Solvin Memory: 7 Speech Short Term Goals Short Term Goals Short Term Goals 1) The patient will complete executive function tasks with 80% or greater with minimal cues. 2) The patient will complete memory tasks with 80% or greater with minimal cues. 3) The patient will demonstrate following simple 2 step directions with 80% or greater with minimal cues. Comprehension: 4 (CGA) Speech Signal Intelligence Analyst Goals Senior Care Goals The patient will improve cognitive function with focus on safety and independence. Comprehension: 7 Expression: 7 Social Interaction: 7 Problem Solvin Memory: 7 Speech-Plan Patient/Family Goals Patient/Family Goals: The patient is being discharged to SNF in [place] this date. Treatment Plan Speech Therapy Treatment Plan: Discontinue ST, Goals Met Patient progressed well with skilled ST services. Treatment Duration: Jan 01, 2019 Frequency: 5 times per week Estimated Hrs Per Day: .5 hour per day Rehab Potential: Good Barriers to Learning: Patient has had a few days of over medication, however were resolved Pt/Family Agrees to Plan: Yes Safety Risks/Education Teaching Recipient: Patient Teaching Methods: Discussion Response to Teaching: Verbalize Understanding Education Topics Provided: Safety when she returns home Time Speech Therapy Time In: 10:00 Speech Therapy Time Out: 10:30 Total Billed Time: 30 Billed Treatment Time 1, IVA Sow Jan 01, 2019 13:31
--- NOTE | 2019-01-01 13:35 | Therapy Team Discharge Summary ---
Therapy Discharge Summary Discharge Recommendations Date of Discharge Therapy D/C Recommendations: Halfway (TCU/NH) (PT) Occupational Therapy Decreased Activ Tolerance, Decreased Safety Aware, Decreased UE Strength, Impaired Funct Balance, Impaired Self-Care Skills Speech-Language Pathology The patient was admitted to the ARU s/p sacral fracture for rehab to return home. The patient was evaluated for cognitive communication due to a change in mentation. She was decreased in memory and problem solving abilities at the time of evaluation. The patient received skilled ST this week prior to discharge with goals met. The patient is being discharged from skilled ST this date due to discharging to SNF in [place]. PT Leadership Development Consultant Goals Leadership Development Consultant Goals PT Custodial Goals Time Frame: January 09, 2019 Transfers (B,C,W/C) (FIM): 6 Roll Left to Right (QC): 6 Sit to Lying (QC): 6 Lying-Sitting on Side/Bed(QC): 6 Sit to Stand (QC): 6 Chair/Ddo-zj-Ynfjo Xfer(QC): 6 Car Transfer (QC): 6 Does the Patient Walk: Yes Gait (FIM): 6 Gait distance (FIM): 3=150 ft Walk 10 feet (QC): 6 Walk 10ft-Uneven Surface(QC): 6 Walk 50ft with 2 Turns (QC): 6 Walk 150 ft (QC): 6 Gait Assistive Device: FWW Does the Pt use WC or Scooter?: No Stairs (FIM): 5 # of Steps: 4 1 Step (curb) (QC): 6 4 Steps (QC): 6 12 Steps (QC): 10 Picking up an Object (QC): 10 OT Leadership Development Consultant Goals Leadership Development Consultant Goals Time Frame: January 11, 2019 Eating (FIM): 7 (not met (dentures)) Eating (QC): 6 Oral Hygiene (QC): 6 (not met) Grooming(FIM): 5 (met-12/31/18) Bathing(FIM): 5 (not met) Shower/Bathe Self (QC): 5 (not met) Upper Body Dressing(FIM): 5 (met-12/31/18) Upper Body Dressing (QC): 6 (not met) Lower Body Dressing(FIM): 5 (not met) Lower Body Dressing (QC): 6 (not met) On/Off Footwear (QC): 6 (not met) Toileting(FIM): 6 (not met) Toileting Hygiene (QC): 6 (not met) Toilet/Commode Transfer(FIM): 6 (not met) Toilet/Commode Transfer (QC): 6 (not met) Shower Transfer(FIM): 5 Comprehension(FIM): 7 Expression (FIM): 7 Social Interaction(FIM): 7 Problem Solving(FIM): 7 Memory(FIM): 7 Additional Goals: 1-Demonstrate ADL Tasks, 2-Verbalize Understanding, 3- ImproveStrength/Melissa 1=Demonstrate adherence to instructed precautions during ADL tasks. 2=Patient will verbalize/demonstrate understanding of assistive devices/ modifications for ADL. 3=Patient will improve strength/tolerance for activity to enable patient to perform ADL's. Speech Leadership Development Consultant Goals Leadership Development Consultant Goals The patient will improve cognitive function with focus on safety and independence. Goal met Comprehension: 7 Expression: 7 Social Interaction: 7 Problem Solvin Memory: 7 IVA HURTADO Jan 01, 2019 13:34
--- NOTE | 2019-01-01 14:14 | Therapy Team Discharge Summary ---
Therapy Discharge Summary Discharge Recommendations Date of Discharge Therapy D/C Recommendations: Shelter (TCU/NH) (PT) Occupational Therapy Pt admitted to ARU following sacral fracture. On admission pt required max assist with toileting and LE dressing, mod assist with bathing and UE dressing, and min assist with transfers. Skilled OT intervention focused on ADL training, transfers, strengthening, and safety. Pt's progress was limited by pain. At discharge pt is completing UE dressing and grooming with SBA, bathing with mod assist, transfers with min assist, and LE dressing and toileting with max assist. Pt met goals for grooming, but did not meet other goals. Pt discharging to SNF for continued care this date. D/c ARU OT at this time. Decreased Activ Tolerance, Decreased Safety Aware, Decreased UE Strength, Impaired Funct Balance, Impaired Self-Care Skills PT Workers Compensation Paralegal Goals Detention Goals PT Workers Compensation Paralegal Goals Time Frame: January 09, 2019 Transfers (B,C,W/C) (FIM): 6 Roll Left to Right (QC): 6 Sit to Lying (QC): 6 Lying-Sitting on Side/Bed(QC): 6 Sit to Stand (QC): 6 Chair/Ali-zl-Qixtx Xfer(QC): 6 Car Transfer (QC): 6 Does the Patient Walk: Yes Gait (FIM): 6 Gait distance (FIM): 3=150 ft Walk 10 feet (QC): 6 Walk 10ft-Uneven Surface(QC): 6 Walk 50ft with 2 Turns (QC): 6 Walk 150 ft (QC): 6 Gait Assistive Device: FWW Does the Pt use WC or Scooter?: No Stairs (FIM): 5 # of Steps: 4 1 Step (curb) (QC): 6 4 Steps (QC): 6 12 Steps (QC): 10 Picking up an Object (QC): 10 OT Workers Compensation Paralegal Goals Detention Goals Time Frame: January 11, 2019 Eating (FIM): 7 (not met (dentures)) Eating (QC): 6 Oral Hygiene (QC): 6 (not met) Grooming(FIM): 5 (met-12/31/18) Bathing(FIM): 5 (not met) Shower/Bathe Self (QC): 5 (not met) Upper Body Dressing(FIM): 5 (met-4/22/19) Upper Body Dressing (QC): 6 (not met) Lower Body Dressing(FIM): 5 (not met) Lower Body Dressing (QC): 6 (not met) On/Off Footwear (QC): 6 (not met) Toileting(FIM): 6 (not met) Toileting Hygiene (QC): 6 (not met) Toilet/Commode Transfer(FIM): 6 (not met) Toilet/Commode Transfer (QC): 6 (not met) Shower Transfer(FIM): 5 Comprehension(FIM): 7 Expression (FIM): 7 Social Interaction(FIM): 7 Problem Solving(FIM): 7 Memory(FIM): 7 Additional Goals: 1-Demonstrate ADL Tasks, 2-Verbalize Understanding, 3- ImproveStrength/Melissa 1=Demonstrate adherence to instructed precautions during ADL tasks. 2=Patient will verbalize/demonstrate understanding of assistive devices/ modifications for ADL. 3=Patient will improve strength/tolerance for activity to enable patient to perform ADL's. Speech Workers Compensation Paralegal Goals Workers Compensation Paralegal Goals The patient will improve cognitive function with focus on safety and independence. Goal met Comprehension: 7 Expression: 7 Social Interaction: 7 Problem Solvin Memory: 7 ALPHONSE DNUHAM OT Jan 01, 2019 14:14
== END 2019-01-01 11:30 | DRG 560 ==
PROVIDERS: ADMIT Internal Medicine; ATTEND Internal Medicine
DX: S32.10XD Unspecified fracture of sacrum, subsequent encounter for fracture with routine healing (principal); N39.3 Stress incontinence (female) (male); N39.0 Urinary tract infection, site not specified; I10 Essential (primary) hypertension; R33.9 Retention of urine, unspecified; N31.9 Neuromuscular dysfunction of bladder, unspecified; R15.9 Full incontinence of feces; T40.4X5A Adverse effect of other synthetic narcotics, initial encounter; R41.0 Disorientation, unspecified; N28.9 Disorder of kidney and ureter, unspecified; E78.5 Hyperlipidemia, unspecified; K59.09 Other constipation; D64.9 Anemia, unspecified; G25.81 Restless legs syndrome; J30.9 Allergic rhinitis, unspecified; W19.XXXD Unspecified fall, subsequent encounter; Y92.009 Unspecified place in unspecified non-institutional (private) residence as the place of occurrence of the external cause
CPT/HCPCS: 36415; 80053; 81000; 85025; 87077; 87088; 87186; 94664